=== PATIENT | female | born 1980 | race Caucasian/White ===

== ENCOUNTER 2016-07-21 19:11 | Inpatient (IN) | payer OTHER ==
[~2016-07-21] VITALS: Ht 170.2 cm; Wt 123.1 kg
[~2016-07-21 19:11] MED LIST: MONT1TAB5 PO; PNC/500 PO
[2016-07-21] MEDS ORDERED: SODIUM CHLORIDE 0.9% 1000ML 1,000 ML IV STA (19:33)
--- NOTE | 2016-07-21 19:37 | EMERGENCY ROOM VISIT NOTE ---
History Report prepared by Gissel: Jaclyn Waldron Under the Supervision of: Dr. Naif Wilson D.O. First contact with patient: 19:31 Chief Complaint: OVERDOSE (INTENTIONAL) Stated Complaint: DRUG OVERDOSE History of Present Illness The patient is a 35 year old female who presents to the Emergency Room with complaints of Xanax overdose starting 7 hours AUTOCAD. The patient states that she got home from court for a domestic abuse situation and states she was depressed and started taking her Xanax until her bottle was a gone and then states she started to take her friends bottle of Xanax and states it was about 40 pills. The patient states that she stopped taking the Xanax about 1.5 hours AUTOCAD. The patient denies taking any other drugs or drinking alcohol. The patient states she has had overdoses in the past and is a recovering heroin addict. The patient states that she has just given up and that no one caries about her and she wanted to be done with life. Source of History: patient Onset: 7 hours AUTOCAD Position: other (global) Symptom Intensity: 40 Xanax Note: Associated symptoms: depression Review of Systems See HPI for pertinent positives & negatives. A total of 10 systems reviewed and were otherwise negative. Past Medical & Surgical Medical Problems: (1) Appendectomy (2) section (3) Cholecystectomy (4) Drug overdose (5) Gastroparesis (6) Hepatitis C (7) History of - hysterectomy (8) IRRITABLE BOWEL SYNDROME (9) IV drug abuse (10) Laparoscopy (11) Migraine (12) Pancreatitis (13) Pyelonephritis (14) Spinal stenosis (15) XANAX OVERDOSE Family History Cancer Cardiovascular disease Social History Smoking Status: Current Every Day Smoker Alcohol Use: none Drug Use: heroin Marital Status: single Housing Status: lives alone Occupation Status: disabled Current/Historical Medications Scheduled Alprazolam (Xanax), 1 MG PO TID Estradiol (Estradiol), 0.5 MG PO DAILY Gabapentin (Neurontin), 300 MG PO HS Ipratropium-Albuterol (Combivent Respimat), 1 PUFF INH QID Montelukast Sodium (Montelukast Sodium), 10 MG PO DAILY Pancrelipase (Lipase-Protease- (Pancreaze), 3 CAP PO TIDM Pantoprazole (Protonix), 40 MG PO DAILY Scheduled PRN Ibuprofen Tab (Advil), 400 MG PO Q8 PRN for Pain Allergies Coded Allergies: No Known Allergies (Unverified , 07/21/16) Physical Exam Vital Signs Date Time Temp Pulse Resp B/P Pulse Ox O2 Delivery O2 Flow Rate FiO2 07/21/16 22:34 76 07/21/16 22:33 77 23 109/86 94 Room Air 07/21/16 21:00 80 12 114/70 95 Room Air 07/21/16 20:25 83 22 111/71 94 Room Air 07/21/16 20:05 95 Room Air 07/21/16 20:05 Room Air 07/21/16 19:22 37.0 90 18 116/76 97 Room Air Physical Exam GENERAL: Patient is listless, slow to respond to questions and appears intoxicated. EYES: The conjunctivae are clear. The pupils dilated but reactive to light bilaterally. EARS, NOSE, MOUTH AND THROAT: The nose is without any evidence of any deformity. Mucous membranes are moist tongue is midline NECK: The neck is nontender and supple. RESPIRATORY: Normal respiratory effort is noted there is no evidence of wheezing rhonchi or rales CARDIOVASCULAR: Regular rate and rhythm noted there no murmurs rubs or gallops normal S1 normal S2 GASTROINTESTINAL: The abdomen is soft. Bowel sounds are present in all quadrants. Abdomen is nontender MUSCULOSKELETAL/EXTREMITIES: There is no evidence of gross deformity full range of motion is noted in the hips and shoulders SKIN: There is no obvious evidence of any rash. There are no petechiae, pallor or cyanosis noted. NEUROLOGIC: Patient is oriented to person, place and situation. Patellar tendon reflux is 2+ bilaterally. GCS 14 PSYCH: Patient is currently admitting to suicidal ideation with gesture. Admits that she took benzodiazepines and a friends benzodiazepines and other prescription medication in attempt to injury herself. Medical Decision & Procedures ER Provider Diagnostic Interpretation: X-ray results as stated below per interpretation by me and the radiologist. CHEST ONE VIEW PORTABLE CLINICAL HISTORY: Overdose COMPARISON STUDY: 12/13/2015 FINDINGS: The bones soft tissues and hemidiaphragms are normal. The cardiomediastinal silhouette is normal. The lungs are clear. The pulmonary vasculature is normal. Old fracture right clavicle IMPRESSION: Negative chest. Electronically signed by: Hitesh Alexandre M.D. 07/21/2016 7:52 PM Dictated Date/Time: 07/21/2016 7:52 PM Laboratory Results 07/21/16 20:00 Red Blood Count 4.69, Mean Corpuscular Volume 83.8, Mean Corpuscular Hemoglobin 29.4, Mean Corpuscular Hemoglobin Concent 35.1, Mean Platelet Volume 10.2, Neutrophils (%) (Auto) 52.0, Lymphocytes (%) (Auto) 38.7, Monocytes (%) (Auto) 6.6, Eosinophils (%) (Auto) 2.2, Basophils (%) (Auto) 0.4, Neutrophils # (Auto) 3.94, Lymphocytes # (Auto) 2.93, Monocytes # (Auto) 0.50, Eosinophils # (Auto) 0.17, Basophils # (Auto) 0.03 07/21/16 20:00 Test 07/21/16 20:00 07/21/16 20:04 07/21/16 21:00 White Blood Count 7.58 K/uL (4.8-10.8) Red Blood Count 4.69 M/uL (4.2-5.4) Hemoglobin 13.8 g/dL (12.0-16.0) Hematocrit 39.3 % (37-47) Mean Corpuscular Volume 83.8 fL (80-100) Mean Corpuscular Hemoglobin 29.4 pg (25-34) Mean Corpuscular Hemoglobin Concent 35.1 g/dl (32-36) Platelet Count 279 K/uL (130-400) Mean Platelet Volume 10.2 fL (7.4-10.4) Neutrophils (%) (Auto) 52.0 % Lymphocytes (%) (Auto) 38.7 % Monocytes (%) (Auto) 6.6 % Eosinophils (%) (Auto) 2.2 % Basophils (%) (Auto) 0.4 % Neutrophils # (Auto) 3.94 K/uL (1.4-6.5) Lymphocytes # (Auto) 2.93 K/uL (1.2-3.4) Monocytes # (Auto) 0.50 K/uL (0.11-0.59) Eosinophils # (Auto) 0.17 K/uL (0-0.5) Basophils # (Auto) 0.03 K/uL (0-0.2) RDW Standard Deviation 43.3 fL (36.4-46.3) RDW Coefficient of Variation 14.0 % (11.5-14.5) Immature Granulocyte % (Auto) 0.1 % Immature Granulocyte # (Auto) 0.01 K/uL (0.00-0.02) Venous Blood pH 7.44 (7.36-7.41) Venous Blood Partial Pressure CO2 40 mmHg (38.0-50.0) Venous Blood Partial Pressure O2 66 mmHg Venous Blood HCO3 27 mmol/L Venous Blood Oxygen Saturation 93.2 % Venous Blood Base Excess 2.4 mmol/L Anion Gap 12.0 mmol/L (3-11) Est Creatinine Clear Calc Drug Dose 72.6 ml/min Estimated GFR () 95.3 Estimated GFR (Non- 82.3 BUN/Creatinine Ratio 11.2 (10-20) Calcium Level 8.8 mg/dl (8.5-10.1) Total Bilirubin 0.3 mg/dl (0.2-1) Direct Bilirubin < 0.1 mg/dl (0-0.2) Aspartate Amino Transf (AST/SGOT) 17 U/L (15-37) Alanine Aminotransferase (ALT/SGPT) 21 U/L (12-78) Alkaline Phosphatase 100 U/L (45-117) Total Creatine Kinase 173 U/L (26-192) Creatine Kinase MB 1.2 ng/ml (0.5-3.6) Creatine Kinase MB Ratio 0.7 (0-3.0) Total Protein 7.1 gm/dl (6.4-8.2) Albumin 3.6 gm/dl (3.4-5.0) Lipase 227 U/L (73-393) Salicylates Level 2.3 mg/dl (2.8-20) Acetaminophen Level < 2 ug/ml (10-30) Ethyl Alcohol mg/dL < 3.0 mg/dl (0-3) Bedside Glucose 99 mg/dl (70-90) Urine Color YELLOW Urine Appearance CLOUDY (CLEAR) Urine pH 5.5 (4.5-7.5) Urine Specific [place] 1.006 (1.000-1.030) Urine Protein NEG (NEG) Urine Glucose (UA) NEG (NEG) Urine Ketones NEG (NEG) Urine Occult Blood NEG (NEG) Urine Nitrite NEG (NEG) Urine Bilirubin NEG (NEG) Urine Urobilinogen NEG (NEG) Urine Leukocyte Esterase NEG (NEG) Urine WBC (Auto) 1-5 /hpf (0-5) Urine RBC (Auto) 0-4 /hpf (0-4) Urine Hyaline Casts (Auto) 1-5 /lpf (0-5) Urine Epithelial Cells (Auto) >30 /lpf (0-5) Urine Bacteria (Auto) NEG (NEG) Urine Opiates Screen NEG (NEG) Urine Methadone, Qualitative NEG (NEG) Urine Barbiturates NEG (NEG) Urine Phencyclidine (PCP) Level NEG (NEG) Ur Amphetamine/Methamphetamine NEG (NEG) MDMA (Ecstasy) Screen NEG (NEG) Urine Benzodiazepines Screen POS (NEG) Urine Cocaine Metabolite NEG (NEG) Urine Marijuana (THC) NEG (NEG) Laboratory results per my review. Medications Administered Medications (Trade) Dose Ordered Sig/Alem Route Start Time Stop Time Status Last Admin Dose Admin Sodium Chloride (Nss 1000ml) 1,000 ml @ 999 mls/hr Q1H1M STAT IV 07/21/16 19:33 07/21/16 20:33 DC 07/21/16 20:26 999 MLS/HR ECG Indication: toxicologic Rate (beats per minute): 80 Rhythm: normal sinus Findings: no ectopy, other (No acute ST segment abnormalities) ED Course 1931: The patient was evaluated in room C5. A complete history and physical examination were performed. 1932: Ordered NSS 1,000 ml @ 999 mls/hr IV. 2150:I discussed the case with Dr. Perla Martines Hospitalist. He agreed to come evaluate the patient for further management and care. Medical Decision Prior records/ancillary studies reviewed. Triage Nursing notes reviewed. The patient's history was concerning for altered mental status and probable overdose. Differential diagnosis: Etiologies such as toxicologic, infection, hypoglycemia, electrolyte abnormalities, cardiac sources, intracerebral event, neurologic, as well as others were entertained. The patient is a 35-year-old female who presented to the emergency department after an intentional overdose. The patient states that she was very depressed and suicidal after an episode that occurred at court today. The patient became very depressed and she started taking her prescription benzodiazepine throughout the day. She started around noon and Taking the prescription until she ran out. She then started taking a friend's prescription as well. The patient presented to the emergency department with altered mental status. She appeared intoxicated. The patient was not able to be medically cleared because of ongoing symptoms. She did not require intubation. She was not hypoxic. She did not retain CO2. She was reevaluated multiple times but continued to require significant help with any ambulation. I do not feel that she would be stable and a mental health facility at this time although ultimately she may require admission to a mental health facility because of this episode and suicidal gesture. I discussed this case with the patient's primary care physician. He has agreed to evaluate the patient for further management and disposition. Consults Time Called: 2149 Consulting Physician: Dr. Perla Martines Hospitalist Returned Call: [phone] I discussed the case with Dr. Perla Martines Hospitalist. He agreed to come evaluate the patient for further management and care. Impression Primary Impression: Overdose of benzodiazepine Additional Impressions: Altered mental status suicidal ideation with gesture Scribe Attestation The scribe's documentation has been prepared under my direction and personally reviewed by me in its entirety. I confirm that the note above accurately reflects all work, treatment, procedures, and medical decision making performed by me. Departure Information Dispostion Being Evaluated By Hospitalist Referrals No Doctor, Assigned (PCP) Patient Instructions My [facility] Problem Qualifiers Primary Impression: Overdose of benzodiazepine Encounter type: initial encounter Injury intent: intentional self-harm Qualified Codes: T42.4X2A - Poisoning by benzodiazepines, intentional self-harm , initial encounter Additional Impressions: Altered mental status Altered mental status type: unspecified Qualified Codes: R41.82 - Altered mental status, unspecified
--- NOTE | 2016-07-21 19:54 | DIAGNOSTIC IMAGING REPORT ---
CHEST ONE VIEW PORTABLE CLINICAL HISTORY: Overdose COMPARISON STUDY: 12/13/2015 FINDINGS: The bones soft tissues and hemidiaphragms are normal. The cardiomediastinal silhouette is normal. The lungs are clear. The pulmonary vasculature is normal. Old fracture right clavicle IMPRESSION: Negative chest. Electronically signed by: Hitesh Alexandre M.D. 07/21/2016 7:52 PM Dictated Date/Time: 07/21/2016 7:52 PM
[2016-07-21 20:09] LABS: VEN BLD GAS O2 SATURATION 93.2 %; VEN BLOOD GAS BASE EXCESS 2.4 mmol/L
[2016-07-21 20:15] LABS: BASO % 0.4 %; BASO ABS # 0.03 K/uL (0-0.2); COMPLETE YES; EOS % 2.2 %; HEMATOCRIT 39.3 % (37-47); IG% 0.1 %; LYMPH % 38.7 %; LYMPH ABS # 2.93 K/uL (1.2-3.4); MEAN CELL VOLUME 83.8 fL (80-100); MEAN CORPUSCULAR HEMOGLOBIN 29.4 pg (25-34); MEAN CORPUSCULAR HGB CONC 35.1 g/dl (32-36); MEAN PLATELET VOLUME 10.2 fL (7.4-10.4); MONO % 6.6 %; PLATELET COUNT 279 K/uL (130-400); RED BLOOD COUNT 4.69 M/uL (4.2-5.4); WHITE BLOOD COUNT 7.58 K/uL (4.8-10.8)
[2016-07-21 20:35] LABS: ACETAMINOPHEN < 2 ug/ml (10-30); BLOOD UREA NITROGEN 10 mg/dl (7-18); GLUCOSE 101 mg/dl (70-99)
[2016-07-21 20:36] LABS: ALT/SGPT 21 U/L (12-78); BUN/CREATININE RATIO 11.2 (10-20); CALCIUM 8.8 mg/dl (8.5-10.1); CARBON DIOXIDE 23 mmol/L (21-32); CHLORIDE 104 mmol/L (98-107); POTASSIUM 3.6 mmol/L (3.5-5.1); SODIUM 139 mmol/L (136-145)
[2016-07-21 20:40] LABS: ALKALINE PHOSPHATASE 100 U/L (45-117); AST/SGOT 17 U/L (15-37); CKMB/CK RATIO 0.7 (0-3.0)
[2016-07-21 21:12] LABS: URINE APPEARANCE CLOUDY (CLEAR); URINE BILIRUBIN NEG (NEG); URINE COLOR YELLOW; URINE EPITHELIAL CELL AUTO >30 /lpf (0-5); URINE NITRITE NEG (NEG); URINE PH 5.5 (4.5-7.5); URINE SPECIFIC GRAVITY 1.006 (1.000-1.030); UROBILINOGEN NEG (NEG)
[2016-07-21 21:14] LABS: MANUAL MICROSCOPIC REQUIRED? NO; REVIEW REQ? NO
[2016-07-21 21:41] LABS: BENZODIAZEPINE, URINE POS (NEG); COCAINE,URINE NEG (NEG); PHENCYCLIDINE, URINE NEG (NEG)
[2016-07-21] MEDS ORDERED: ACETAMINOPHEN 325 MG TAB PO PRN (22:45)
[2016-07-21] MEDS ORDERED: ONDANSETRON INJ 8 MG in DEXTROSE 5% 50ML 50 ML IV PRN (22:45)
[2016-07-21] MEDS ORDERED: SODIUM CHLORIDE 0.9% 1000ML 1,000 ML IV SCH (23:30)
[2016-07-21 23:47] VITALS: BP 117/64; PULSE 75; TEMP 36.7; O2SAT 94; Ht 170.2 cm; Wt 123.1 kg
--- NOTE | 2016-07-22 01:20 | HISTORY & PHYSICAL EXAMINATION ---
DATE OF ADMISSION: 07/21/2016 CHIEF COMPLAINT: A 35-year-old female, admitted through the Emergency Room with Xanax overdose. HISTORY OF PRESENT ILLNESS: The patient with multiple medical problems including longstanding history of heroin addiction, has been treated in the past with methadone and Suboxone. She has chronic pancreatitis. She has had previous stenting of her pancreatic duct. She also has a history of hepatitis C. She does have bipolar disorder. She has had multiple hospitalizations with multidrug overdose. The patient presented to the Emergency Room today stating that she took Xanax. Apparently, she was in court today dealing with a legal issue. The outcome was upsetting to her, so she went home and she started taking Xanax around noon time. She had a bottle and she took it until the bottle became empty. Then she took some of her friend's Xanax. She has estimated that she took about 40 tablets. Her prescription is for the 1 mg tablets. She was evaluated in the Emergency Room. She had altered mental status. Most of the time she was obtunded, but she was arousable. She had no nausea, no vomiting. She denied any headache. She was off balance when she tries to stand up and walk. She needed assistance. No chest pain, no shortness of breath. No nausea, no vomiting. No pain in her back or extremities. The patient was admitted. Psychiatry consultation was requested. PAST MEDICAL HISTORY: 1. As noted, she has had multiple prior hospitalizations with drug overdose. 2. Appendectomy in 2003. 3. Cholecystectomy in 2003. 4. She had 2 C-sections in 1999 and 2001. 5. She has had a partial hysterectomy followed by complete hysterectomy in the past. She has been on hormonal replacement therapy. 6. Meniscus surgery right knee, in 2003. 7. She had a tonsillectomy and adenoidectomy at age 10. 8. Carpal tunnel decompression surgery in 2011 on the left side and 2004 on the right side. 9. History of wisdom teeth extractions in the remote past. 10. She has had prior surgeries on her elbow after an injury. 11. Chronic pancreatitis. At one time in the past, she was evaluated at [facility] and she required stenting of her pancreatic duct which was then removed in 2009. 12. History of longstanding drug addiction, mostly heroin. 13. She was diagnosed in the past with hepatitis C. She has not required any treatment. SOCIAL HISTORY: She is . She had 2 children. She is a smoker, up to 3 packs per day, she started at age 11. Denied any alcohol. Denied using any drugs recently. She has had multiple jobs in the past. FAMILY HISTORY: Her father is treated for type 2 diabetes mellitus, arterial hypertension and hyperlipidemia. Her mother is in her 50s, alive and well. One brother has COPD. Children are alive and well; they are being raised by her mother. ALLERGIES: No known drug allergies. MEDICATIONS ON ADMISSION: All as noted on her home medication list. REVIEW OF SYSTEMS: She denied any headache, dizziness or lightheadedness. She is quite obtunded. Arousable. Denied any earache, sore throat or neck pain. Denied any chest pain. No shortness of breath. No abdominal pain, no nausea or vomiting. No problem with her bowel movements. No urinary problem. No pain in her back or extremities. PHYSICAL EXAMINATION: GENERAL: Well-developed, in no acute distress. Her recorded weight is 123 kg, height 180.3 cm and BMI 38. VITAL SIGNS: Blood pressure 116/76, pulse 90, respirations 18, temperature 37 and oxygen saturation 97% on room air. SKIN: Warm and dry. No rash. Multiple tattoos. HEENT: No mucosal abnormality. NECK: Supple. Nontender. No adenopathy, no thyromegaly. No JVD. Normal carotid pulses. HEART: Regular heart sounds without any murmur, rub or gallop. LUNGS: Clear. ABDOMEN: Soft and nontender. No evidence of organomegaly or masses. EXTREMITIES: No edema, clubbing or cyanosis. Good pulses. NEUROLOGIC: She is obtunded, but arousable. There is no evidence of any lateralized deficits. LABORATORY TESTS: WBC count 7580, hemoglobin 13.8, hematocrit 39.3, platelet count 279,000. Sodium 139, potassium 3.6, chloride 104, CO2 23, BUN 10, creatinine 0.9, glucose 101, calcium 8.8, total bilirubin 0.3, AST 17, ALT 21, alkaline phosphatase 100, total CK 173, MB fraction 1.2, total protein 7.1, albumin 3.6, lipase 227. Chest x-ray was normal. ASSESSMENT: 1. Xanax overdose, estimated that she probably took about 40 tablets; what she has available is the 1 mg tablets. 2. Bipolar disorder. 3. History of multiple drug overdoses. 4. History of pancreatitis with pancreatic insufficiency. 5. History of hepatitis C. PLAN: The patient is admitted to PCU with telemetry. Resuscitation level 1. Laboratory tests were ordered. Started on IV fluids. IV Zofran for any nausea. The plan is to monitor her closely. Monitor her mental status. Monitor her laboratory tests. Psychiatry consultation was requested. The patient will be monitored from a medical standpoint. Once she is cleared from a medical standpoint, then a decision will be made regarding her psychiatric evaluation and care. JOHANNA
[2016-07-22 03:33] VITALS: BP 114/72; PULSE 74; TEMP 36.4; O2SAT 93
[2016-07-22 06:30] LABS: BASO % 0.2 %; BASO ABS # 0.01 K/uL (0-0.2); COMPLETE YES; EOS % 3.4 %; HEMATOCRIT 38.2 % (37-47); IG% 0.2 %; LYMPH ABS # 2.09 K/uL (1.2-3.4); MEAN CELL VOLUME 86.4 fL (80-100); MEAN CORPUSCULAR HEMOGLOBIN 29.6 pg (25-34); MEAN CORPUSCULAR HGB CONC 34.3 g/dl (32-36); MEAN PLATELET VOLUME 10.1 fL (7.4-10.4); MONO % 7.4 %; NEUT % 52.8 %; PLATELET COUNT 246 K/uL (130-400); RED BLOOD COUNT 4.42 M/uL (4.2-5.4); WHITE BLOOD COUNT 5.81 K/uL (4.8-10.8)
[2016-07-22 07:00] LABS: BUN/CREATININE RATIO 8.9 (10-20); CALCIUM 8.4 mg/dl (8.5-10.1); CREATININE 0.88 mg/dl (0.60-1.20); POTASSIUM 3.5 mmol/L (3.5-5.1)
[2016-07-22] MEDS ORDERED: PANCREAZE (LIPASE 10,500U) CAP PO SCH (07:30)
[2016-07-22 07:47] VITALS: BP 104/70; PULSE 76; TEMP 36.4; O2SAT 97
[2016-07-22] MEDS ORDERED: MONTELUKAST SOD 10 MG TAB PO SCH (09:00)
[2016-07-22] MEDS ORDERED: PANTOprazole SOD 40 MG TAB PO SCH (09:00)
--- NOTE | 2016-07-22 09:19 | Clinical Documentation Query ---
Dr. NIMA DELGADO [facility] : CLINICAL DOCUMENTATION QUERY Patient is a 35 year old female admitted for evaluation and treatment of intentional Xanax overdose. She has been described as obtunded, but arousable. She is being monitored on telemetry, recieving IVF, monitored with serial labs, and will be evaluated by psychiatry when medically feasible. As appropriate, consider clarification as suggested below as this directly impacts DRG assignment. Thank you. In your clinical opinion is this patient being managed for: ( ) Toxic drug induced encephalopathy ( ) Other explanation of clinical findings (Please Explain) ( ) Unable to determine (Please Define) ( ) Need to Discuss (x ) Not Agree The medical record reflects the following clinical findings, treatment, and risk factors. Clinical Indicators: As above Treatment:She is being monitored on telemetry, recieving IVF, monitored with serial labs, and will be evaluated by psychiatry when medically feasible. Risk Factors: Xanax overdose Please clarify and document your clinical opinion in the progress notes and discharge summary. Terms such as "probable", "suspected", "likely", "questionable", "possible", or "still to be ruled out" are acceptable. IF IN AGREEMENT, YOU MUST DOCUMENT ABOVE DIAGNOSTIC STATEMENT IN DAILY PROGRESS NOTES AND DISCHARGE SUMMARY. This document is not part of the patient's record. Thank You, Abdifatah Winkler, BIANCA [phone]
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
[2016-07-22] MEDS ORDERED: GABAPENTIN 300 MG CAP PO SCH (21:00)
--- NOTE | 2016-07-22 21:35 | PROGRESS NOTE ---
DATE: 07/22/2016 HISTORY OF PRESENT ILLNESS: A 35-year-old female, admitted after Xanax overdose. Overnight she did well. She rested comfortably. I saw the patient this morning. She was awake, alert and recalls exactly what happened to her the day before. She insisted on saying that she was not trying to kill herself, but she just wanted to try to forget what happened in court. When I saw her this morning, she was calm, cooperative and she had no complaints of any headache or dizziness. No chest pain, no shortness of breath. No abdominal pain, no nausea or vomiting. Not having any pain in her back or extremities. PHYSICAL EXAMINATION: GENERAL: Well-developed, in no distress. VITAL SIGNS: Blood pressure 104/70, pulse 76, respirations 18, temperature 36.4 and oxygen saturation 97% on room air. SKIN: Warm and dry. No rash. Multiple tattoos. HEENT: No mucosal abnormality. NECK: No JVD. No adenopathy. HEART: Regular heart sounds. LUNGS: Clear. ABDOMEN: Soft and benign. BACK: No spinal tenderness. EXTREMITIES: No edema, clubbing or cyanosis. LABORATORY TESTS: WBC count 5810, hemoglobin 13.1, hematocrit 38.2 and platelet count 246,000. Sodium 141, potassium 3.5, chloride 109, CO2 23, BUN 8, creatinine 0.88, glucose 98, calcium 8.4. Her toxicology screen was positive for benzodiazepine as expected. Nothing else was detected. ASSESSMENT: 1. Xanax overdose. 2. Bipolar disorder. PLAN: 1. Psychiatry consultation was requested. 2. Her nurse called me shortly after I saw her. She is stating that the patient was becoming very aggressive. She pulled her IV. Blood was all over her and she tried to clean her up, but she refused. She was getting quite combative and belligerent. The nurse tried to calm her down without success. The patient insisted that she was going to leave the hospital. She signed herself AMA.
[2016-07-24 15:16] LABS: HYDROXYETHYLFLURAZEPAM CONF NEGATIVE NG/ML (CUTOFF=50); HYDROXYMIDAZOLAM NEGATIVE NG/ML (CUTOFF=50); HYDROXYTRIAZOLAM CONF NEGATIVE NG/ML (CUTOFF=50); TEMAZEPAM CONF NEGATIVE NG/ML (CUTOFF=50)
--- NOTE | 2016-08-02 02:10 | DISCHARGE SUMMARY ---
DISCHARGE DIAGNOSES: 1. Xanax overdose. 2. Bipolar disorder. A 35-year-old female admitted through the Emergency Room with Xanax overdose. The patient with multiple medical problems including longstanding history of heroin addiction; has been treated in the past with methadone and Suboxone. She had chronic pancreatitis. At one time in the past, she required a short period of stenting of her pancreatic duct. She also has a history of hepatitis C. She has bipolar disorder. She has had multiple prior hospitalizations. The patient presented to the Emergency Room on the day of admission stating that she took Xanax. Apparently she was in court dealing with a legal issue. The outcome was upsetting to her. She went home and she started taking Xanax around noontime. She had a bottle. She took it until the bottle was empty. Then she took some of her friends Xanax. She estimated that she probably took 40 tablets. Her prescription is for the 1 mg tablets. She was evaluated in the Emergency Room. She had altered mental status. Most of the time she was obtunded, but she was arousable. She had no nausea, no vomiting. She denied any headache. She was off balance when she tried to stand up and walk. She needed assistance. She had no chest pain. She was admitted for further treatment. Psychiatry consultation was also requested. PAST MEDICAL HISTORY, SOCIAL HISTORY AND FAMILY HISTORY: All as noted. ALLERGIES: None. MEDICATIONS ON ADMISSION: All as noted on her home medication list. PHYSICAL EXAMINATION AND ADMISSION LABORATORY TESTS: All as noted. HOSPITAL COURSE: The patient was admitted to PCU with telemetry. Resuscitation level 1. Laboratory tests were ordered. Psychiatry consultation was requested. After admission, the patient remained quiet and calm. Her mental status was recovering. Her condition remained stable. On 07/22/2016, she was seen in psychiatry consultation. I saw the patient in the morning. She was resting comfortably. She was back to her baseline mental status. We are completing her workup and evaluation with the intent of having her cleared for psychiatry care. Shortly after I saw her in the morning, her nurse called me to let me know that the patient was becoming aggressive. She pulled her IV. Blood was splashed all over. The nurse was trying to clean the blood, but the patient refused. She was getting belligerent and combative. The nurse tried to calm her down without success. The patient insisted that she was going to leave the hospital. She did sign herself AMA.
[2016-09-06] MEDS ORDERED: GABA-113 PO (07:30)
[2016-09-06] MEDS ORDERED: IPRA1AER2 INH (16:12)
[2016-09-06] MEDS ORDERED: IBUP-103 PO (16:35)
[2016-09-06] MEDS ORDERED: ESTR0.5T3 PO (16:59)
[2016-09-06] MEDS ORDERED: PANT1TAB48 PO (16:59)
[2016-09-06] MEDS ORDERED: PANCCAP2 PO (16:59)
[2016-09-06] MEDS ORDERED: ALPR1TAB3 PO (19:42)
== END 2016-07-22 11:00 | disposition left against medical advice (07) | DRG 918 ==
LOC: ENRESERVTM → ENRESERVDT → C.EDB 19:13 → UNDOADMIN 22:42 → C.2E 22:42
PROVIDERS: ADMIT Internal Medicine; ATTEND Internal Medicine
DX: T42.4X2A Poisoning by benzodiazepines, intentional self-harm, initial encounter (principal); F11.20 Opioid dependence, uncomplicated; K86.1 Other chronic pancreatitis; T82.838A Hemorrhage due to vascular prosthetic devices, implants and grafts, initial encounter; X78.8XXA Intentional self-harm by other sharp object, initial encounter; Y92.230 Patient room in hospital as the place of occurrence of the external cause; R41.82 Altered mental status, unspecified; Y92.009 Unspecified place in unspecified non-institutional (private) residence as the place of occurrence of the external cause; R45.6 Violent behavior; F31.9 Bipolar disorder, unspecified; F13.10 Sedative, hypnotic or anxiolytic abuse, uncomplicated; K86.89 Other specified diseases of pancreas; F17.210 Nicotine dependence, cigarettes, uncomplicated; Z53.21 Procedure and treatment not carried out due to patient leaving prior to being seen by health care provider; Z91.5 Personal history of self-harm; Z86.19 Personal history of other infectious and parasitic diseases; Z65.3 Problems related to other legal circumstances; Z79.890 Hormone replacement therapy

== ENCOUNTER 2016-08-13 19:23 | Observation (INO) | payer OTHER ==
[~2016-08-13] VITALS: Ht 170.2 cm; Wt 126.8 kg
[~2016-08-13 19:23] MED LIST changes: -PNC/500 PO
[2016-08-13] MEDS ORDERED: FAMOTIDINE 20MG/102 ML D5W IV STA (19:58)
[2016-08-13] MEDS ORDERED: SODIUM CHLORIDE 0.9% 1000ML 1,000 ML IV STA (19:58)
--- NOTE | 2016-08-13 20:15 | EMERGENCY ROOM VISIT NOTE ---
History Report prepared by Gissel: Mercedez Rahman Under the Supervision of: Dr. Ravi Miranda M.D. First contact with patient: 19:54 Chief Complaint: OVERDOSE (INTENTIONAL) Stated Complaint: SUICIDAL, SEVERE RT SIDE ABD PAIN, TOOK 60 PILLS History of Present Illness The patient is a 35 year old female who presents to the Emergency Room with complaints of constant severe upper abdominal pain beginning this morning. She notes that today she took 20 pills of 800mg Neurontin this morning and then 40 more pills later this afternoon. She denies trying to commit suicide or being suicidal. She notes that she has been having a hard time and has been dealing with depression for her whole life. The patient is 1 year clean from heroin. She notes that during her entire life her coping method has been taking pills or doing drugs . Today she has been experiencing diarrhea. The patient has an extensive abdominal history and also has Hepatitis C. She denies nausea. The patient notes that she switched psychiatric medications last week and her new medications have not been filled yet. Source of History: patient Onset: today Position: abdomen (upper) Symptom Intensity: severe Timing: constant Associated Symptoms: + diarrhea, No nausea Note: Patient denies suicidal thoughts. Review of Systems See HPI for pertinent positives & negatives. A total of 10 systems reviewed and were otherwise negative. Past Medical & Surgical Medical Problems: (1) Appendectomy (2) section (3) Cholecystectomy (4) Drug overdose (5) GABAPENTIN OVERDOSE (6) Gastroparesis (7) Hepatitis C (8) History of - hysterectomy (9) IRRITABLE BOWEL SYNDROME (10) IV drug abuse (11) Laparoscopy (12) Migraine (13) Pancreatitis (14) Pyelonephritis (15) Spinal stenosis (16) XANAX OVERDOSE Family History Cancer Cardiovascular disease Social History Smoking Status: Current Every Day Smoker Alcohol Use: none Drug Use: heroin Marital Status: single Housing Status: lives alone Occupation Status: disabled Current/Historical Medications Scheduled Alprazolam (Xanax), 1 MG PO TID Estradiol (Estradiol), 0.5 MG PO DAILY Gabapentin (Neurontin), 300 MG PO HS Gabapentin (Neurontin), 800 MG PO DIRECTED Ipratropium-Albuterol (Combivent Respimat), 1 PUFF INH QID Montelukast Sodium (Montelukast Sodium), 10 MG PO DAILY Pancrelipase (Lipase-Protease- (Pancreaze), 3 CAP PO TIDM Pantoprazole (Protonix), 40 MG PO DAILY Zolpidem Tartrate (Ambien), 10 MG PO HS Scheduled PRN Ibuprofen Tab (Advil), 400 MG PO Q8 PRN for Pain Allergies Coded Allergies: No Known Allergies (Unverified , 08/13/16) Physical Exam Vital Signs Date Time Temp Pulse Resp B/P Pulse Ox O2 Delivery O2 Flow Rate FiO2 08/13/16 23:30 114/74 08/13/16 23:10 79 20 95 08/13/16 23:00 122/69 08/13/16 22:43 84 08/13/16 22:40 84 18 93 08/13/16 22:30 114/73 08/13/16 22:10 88 21 97 08/13/16 22:05 80 16 105/81 97 Room Air 08/13/16 21:01 86 18 126/78 96 Room Air 08/13/16 19:55 90 08/13/16 19:52 97 Room Air 08/13/16 19:34 37.1 92 20 129/87 97 Room Air Physical Exam GENERAL: Patient is in no acute distress. HEENT: No acute trauma, normocephalic atraumatic, mucous membranes moist, no nasal congestion, no scleral icterus. NECK: No stridor, no adenopathy, no meningismus, trachea is midline. LUNGS: Clear to auscultation bilaterally, no wheeze, no rhonchi, breath sounds equal. HEART: Without murmurs gallops or rubs, regular rate and rhythm. ABDOMEN: Soft, tenderness in upper quadrants bilaterally, bowel sounds positive , no hernias, no peritonitis. EXTREMITIES: No cyanosis or edema, full range of motion of all the joints without pain or difficulty, no signs for acute trauma. NEUROLOGIC: Oriented x 3, no acute motor or sensory deficits, no focal weakness. SKIN: No rash, no jaundice, no diaphoresis. PSYCH: Cooperative, voluntary, denies being suicidal. Medical Decision & Procedures ER Provider Diagnostic Interpretation: X-ray results as stated below per interpretation by me and the radiologist: CHEST ONE VIEW PORTABLE CLINICAL HISTORY: Agitation. COMPARISON STUDY: Chest radiograph July 21, 2016. FINDINGS: A right clavicular internal fixation is noted. Lung volumes are diminished. There is mild interstitial thickening with hazy bilateral opacities. Cardiac size is normal. Mediastinal contours are normal. IMPRESSION: Interstitial thickening with hazy bibasilar opacities. The findings could simply represent normal vessels or atelectasis on this hypoventilatory study. However, an infectious process could appear similar. Electronically signed by: Andrea Scott M.D. 08/13/2016 9:09 PM Dictated Date/Time: 08/13/2016 9:08 PM Laboratory Results 08/13/16 21:00 08/13/16 21:00 Test 08/13/16 19:56 08/13/16 21:00 Urine Color YELLOW Urine Appearance CLEAR (CLEAR) Urine pH 7.5 (4.5-7.5) Urine Specific [place] 1.021 (1.000-1.030) Urine Protein NEG (NEG) Urine Glucose (UA) NEG (NEG) Urine Ketones NEG (NEG) Urine Occult Blood NEG (NEG) Urine Nitrite NEG (NEG) Urine Bilirubin NEG (NEG) Urine Urobilinogen NEG (NEG) Urine Leukocyte Esterase NEG (NEG) Urine Test NEG (NEG) Urine Opiates Screen NEG (NEG) Urine Methadone, Qualitative NEG (NEG) Urine Barbiturates NEG (NEG) Urine Phencyclidine (PCP) Level NEG (NEG) Ur Amphetamine/Methamphetamine NEG (NEG) MDMA (Ecstasy) Screen NEG (NEG) Urine Benzodiazepines Screen NEG (NEG) Urine Cocaine Metabolite NEG (NEG) Urine Marijuana (THC) NEG (NEG) Red Blood Count 4.51 M/uL (4.2-5.4) Mean Corpuscular Volume 86.7 fL (80-100) Mean Corpuscular Hemoglobin 30.4 pg (25-34) Mean Corpuscular Hemoglobin Concent 35.0 g/dl (32-36) RDW Standard Deviation 44.7 fL (36.4-46.3) RDW Coefficient of Variation 14.1 % (11.5-14.5) Mean Platelet Volume 10.3 fL (7.4-10.4) Anion Gap 7.0 mmol/L (3-11) Est Creatinine Clear Calc Drug Dose 125.2 ml/min Estimated GFR () 100.7 Estimated GFR (Non- 86.9 BUN/Creatinine Ratio 17.9 (10-20) Calcium Level 8.7 mg/dl (8.5-10.1) Total Bilirubin 0.2 mg/dl (0.2-1) Aspartate Amino Transf (AST/SGOT) 20 U/L (15-37) Alanine Aminotransferase (ALT/SGPT) 27 U/L (12-78) Alkaline Phosphatase 102 U/L (45-117) Total Protein 7.1 gm/dl (6.4-8.2) Albumin 3.6 gm/dl (3.4-5.0) Globulin 3.5 gm/dl (2.5-4.0) Albumin/Globulin Ratio 1.0 (0.9-2) Lipase 217 U/L (73-393) Thyroid Stimulating Hormone (TSH) 1.480 uIu/ml (0.300-4.500) Salicylates Level 3.7 mg/dl (2.8-20) Acetaminophen Level < 2 ug/ml (10-30) Ethyl Alcohol mg/dL < 3.0 mg/dl (0-3) Laboratory results reviewed by me. Medications Administered Medications (Trade) Dose Ordered Sig/Alem Route Start Time Stop Time Status Last Admin Dose Admin Sodium Chloride (Nss 1000ml) 1,000 ml @ 999 mls/hr Q1H1M STAT IV 08/13/16 19:58 08/13/16 20:58 DC 08/13/16 22:04 999 MLS/HR Famotidine (Pepcid 20mg/100 ml) 20 mg ONE STAT IV 08/13/16 19:58 08/13/16 20:02 DC 08/13/16 22:04 20 MG ECG Indication: abdominal pain Rate (beats per minute): 82 Rhythm: normal sinus Findings: no acute ischemic change, no ectopy ED Course 1954: The patient was evaluated in room A8. A complete history and physical exam was performed. 1957: Pepcid 20 mg/ 100 ml 20 mg IV, Sodium Chloride 1,000 ml @ 999 mls/hr IV. 2150: I spoke to Poison Control about the patient. They recommend observation for symptoms. 2247: I reevaluated the patient. She is feeling very tired which is a symptoms poison control noted to observe. 2256: Discussed the patient's case with Dr. Landon Devi. The patient will be evaluated for further management. 2300: Upon reexamination the patient is hemodynamically stable. I discussed results and treatment plan with the patient. She verbalizes agreement and understanding. The patient will be evaluated for further management. Medical Decision The patient is a 35 year old female who presents to the ED with complaints of upper abdominal pain. Differential diagnoses considered include suicidal ideation, pancreatitis, hepatitis, multi drug overdose, electrolyte imbalance, renal failure, UTI. There is no leukocytosis or concerning anemia. No significant electrolyte abnormality or kidney failure. No hepatitis or pancreatitis. The patient appears to be in a euthyroid state. testing was negative. Urinalysis does not show infection. Aspirin, Tylenol and alcohol levels were not significantly elevated. Urine tox was negative. EKG showed a normal sinus rhythm, no acute ischemia. Chest x-ray showed possible pneumonia versus lower lung atelectasis, there was no pneumothorax or free air. The patient received IV saline, she was given IV Pepcid. I did speak with the poison center. They recommended observation. During the patient's stay, she became somnolent and I did not think she was stable for discharge home. I spoke with the patient's family Dr. Dr. Anil Duncan. Admission/observation is warranted. I did speak with case management. I talked to the patient about her findings. Consults Time Called: 2148 Consulting Physician: Poison Control Returned Call: 2150 I spoke to Poison Control about the patient. They recommend observation for symptoms. Additional Consults: Time Called: Consulted Physician: Dr. Landon Devi Returned Call: [phone] Additional Comments: Discussed the patient's case. The patient will be evaluated for further management. Impression Primary Impression: Medication overdose Scribe Attestation The scribe's documentation has been prepared under my direction and personally reviewed by me in its entirety. I confirm that the note above accurately reflects all work, treatment, procedures, and medical decision making performed by me. Departure Information Dispostion Being Evaluated By Hospitalist Referrals No Doctor, Assigned (PCP)
[2016-08-13] MEDS ORDERED: GABA800T PO (20:31)
[2016-08-13 20:36] LABS: URINE APPEARANCE CLEAR (CLEAR); URINE BILIRUBIN NEG (NEG); URINE COLOR YELLOW; URINE NITRITE NEG (NEG); URINE PH 7.5 (4.5-7.5); URINE SPECIFIC GRAVITY 1.021 (1.000-1.030); UROBILINOGEN NEG (NEG); ZZUR CULT IF INDIC CLEAN CATCH NO
[2016-08-13 20:37] LABS: MANUAL MICROSCOPIC REQUIRED? NO; REVIEW REQ? NO
[2016-08-13 20:58] LABS: BENZODIAZEPINE, URINE NEG (NEG); COCAINE,URINE NEG (NEG); PHENCYCLIDINE, URINE NEG (NEG)
--- NOTE | 2016-08-13 21:11 | DIAGNOSTIC IMAGING REPORT ---
CHEST ONE VIEW PORTABLE CLINICAL HISTORY: Agitation. COMPARISON STUDY: Chest radiograph July 21, 2016. FINDINGS: A right clavicular internal fixation is noted. Lung volumes are diminished. There is mild interstitial thickening with hazy bilateral opacities. Cardiac size is normal. Mediastinal contours are normal. IMPRESSION: Interstitial thickening with hazy bibasilar opacities. The findings could simply represent normal vessels or atelectasis on this hypoventilatory study. However, an infectious process could appear similar. Electronically signed by: Andrea Scott M.D. 08/13/2016 9:09 PM Dictated Date/Time: 08/13/2016 9:08 PM
[2016-08-13 21:14] LABS: HEMATOCRIT 39.1 % (37-47); MEAN CELL VOLUME 86.7 fL (80-100); MEAN CORPUSCULAR HEMOGLOBIN 30.4 pg (25-34); MEAN PLATELET VOLUME 10.3 fL (7.4-10.4); PLATELET COUNT 238 K/uL (130-400); RED BLOOD COUNT 4.51 M/uL (4.2-5.4); WHITE BLOOD COUNT 7.62 K/uL (4.8-10.8)
[2016-08-13 21:33] LABS: BUN/CREATININE RATIO 17.9 (10-20); CALCIUM 8.7 mg/dl (8.5-10.1); CREATININE 0.86 mg/dl (0.60-1.20); POTASSIUM 3.9 mmol/L (3.5-5.1)
[2016-08-13 21:34] LABS: ACETAMINOPHEN < 2 ug/ml (10-30)
[2016-08-13 21:43] LABS: THYROID STIMULATING HORMONE 1.48 uIu/ml (0.300-4.500)
[2016-08-13] MEDS ORDERED: IV FLUIDS COMPLETED PRN (23:45)
[2016-08-13] MEDS ORDERED: ACETAMINOPHEN 325 MG TAB PO PRN (23:45)
[2016-08-14 00:39] VITALS: BP 119/74; PULSE 80; TEMP 36.6; O2SAT 97; Ht 170.2 cm; Wt 126.8 kg
[2016-08-14] MEDS: SODIUM CHLORIDE 0.9% 1000ML 1,000 ML IV SCH ×2 (02:10→10:34)
[2016-08-14] MEDS: ONDANSETRON INJ 8 MG in DEXTROSE 5% 50ML 50 ML IV PRN ×2 (05:12→11:30)
[2016-08-14 06:26] LABS: BASO % 0.2 %; BASO ABS # 0.01 K/uL (0-0.2); COMPLETE YES; EOS % 2.2 %; HEMATOCRIT 36.6 % (37-47); LYMPH % 42.6 %; LYMPH ABS # 2.66 K/uL (1.2-3.4); MEAN CELL VOLUME 87.8 fL (80-100); MEAN CORPUSCULAR HEMOGLOBIN 29.7 pg (25-34); MEAN CORPUSCULAR HGB CONC 33.9 g/dl (32-36); MEAN PLATELET VOLUME 10.4 fL (7.4-10.4); MONO % 7.5 %; NEUT % 47.5 %; PLATELET COUNT 213 K/uL (130-400); RED BLOOD COUNT 4.17 M/uL (4.2-5.4); WHITE BLOOD COUNT 6.24 K/uL (4.8-10.8)
[2016-08-14 07:07] VITALS: BP 94/64; PULSE 71; TEMP 36.6; O2SAT 95
[2016-08-14 07:25] LABS: BUN/CREATININE RATIO 12.5 (10-20); CALCIUM 8.1 mg/dl (8.5-10.1); CREATININE 0.75 mg/dl (0.60-1.20); MAGNESIUM 2.3 mg/dl (1.8-2.4); POTASSIUM 3.8 mmol/L (3.5-5.1)
[2016-08-14] MEDS ORDERED: MONTELUKAST SOD 10 MG TAB PO SCH (08:00)
[2016-08-14] MEDS ORDERED: PANTOprazole SOD 40 MG TAB PO SCH (08:00)
[2016-08-14] MEDS: PANCREAZE (LIPASE 10,500U) CAP PO SCH ×3 (08:12→17:44)
[2016-08-14] MEDS: IPRATROPIUM BROMIDE/ALBUTEROL respimat INH INH SCH ×3 (08:13→16:10)
[2016-08-14 08:30] VITALS: O2SAT 95
[2016-08-14 15:36] VITALS: BP 95/66; PULSE 78; TEMP 36.8; O2SAT 96
--- NOTE | 2016-08-14 17:34 | Discharge Instructions ---
Discharge Instructions Date of Service Aug 14, 2016. Admission Reason for Admission: Gabapentin Overdose Discharge Discharge Diagnosis / Problem: Gabapentin overdose Discharge Goals Goal(s): Decrease discomfort, Improve disease control Activity Recommendations Activity Limitations: resume your previous activity . Instructions / Follow-Up Instructions / Follow-Up psychiatry follow-up Dr Duncan as scheduled Current Hospital Diet Patient's current hospital diet: Regular Diet Discharge Diet Recommended Diet: Regular Diet Pending Studies Studies pending at discharge: no Medical Emergencies . Who to Call and When: Medical Emergencies: If at any time you feel your situation is an emergency, please call 911 immediately. . Non-Emergent Contact Non-Emergency issues call your: Primary Care Provider . . "Provider Documentation" section prepared by Anil Duncan. VTE Core Measure Inpt VTE Proph given/why not?: Treatment not indicated
[2016-08-14 17:38] VITALS: BP 95/66; PULSE 78; TEMP 36.8; O2SAT 96
--- NOTE | 2016-08-14 17:51 | HISTORY & PHYSICAL EXAMINATION ---
DATE OF ADMISSION: 08/13/2016 HISTORY OF PRESENT ILLNESS: A 35-year-old female admitted through the Emergency Room with gabapentin overdose. The patient was last hospitalized at on 07/21/2016 with alprazolam overdose. She was admitted to PCU. The following morning, she signed herself AMA. The patient has been at home. She stated that she is dealing with multiple stressful situations that she was having difficulty dealing with. She has gabapentin at home, the 800-mg dose. She stated that she took about 20 in the morning of 08/13/2016 and in the afternoon, she took 40 tablets. She was trying to relax and she was trying to sleep, but the medication that she took was not helping, so that is why she kept taking it. She started experiencing abdominal pain, so she came to the Emergency Room. The patient denied any intention of suicide. She just wanted to relax and sleep. The patient was evaluated by Dr. Miranda. He did call the poison control center. The recommendation was mostly to observe her mental status, especially she becomes very somnolent. She was also seen by the case assistant from psychiatry and there was really no indication for an inpatient psychiatric care. The patient had no suicidal ideation and that was not her intent. Dr. Miranda was not able to discharge the patient home because she was very sleepy and somnolent. So, we had to admit her under observation status. PAST MEDICAL HISTORY: 1. She has had multiple hospitalizations with drug overdoses. 2. Longstanding history of depression. She is currently not taking any medications recently. Her medications were to be changed. Her psychiatry was going to start her on Latuda, but they are trying to get approval from her insurance company, so she has not started the medication yet. 3. Appendectomy in 2003. 4. Cholecystectomy in 2003. 5. She has had 2 C-sections in 1999 and 2001. 6. Partial hysterectomy followed by complete hysterectomy in the past. She has been on hormonal replacement therapy. 7. Right meniscus surgery in 2003. 8. Tonsillectomy and adenoidectomy at age 10. 9. Carpal tunnel decompression surgery in 2011 on the left side and 2004 on the right side. 10. History of extraction of her wisdom teeth. 11. History of pancreatitis. She was evaluated at [facility] and at one time, she required stenting of her pancreatic duct. It was subsequently removed. This was back in 2009. 12. History of longstanding heroin addiction. She has pain on methadone and Suboxone in the past. She stated that she have heroin free for about 1 years now. 13. Hepatitis C diagnosed in the past, not requiring any treatment. SOCIAL HISTORY: She is . Has 2 children. She is a smoker up to 3 packs per day. She started smoking back at age 11. Denied any alcohol. Denied using any drugs at this time, specifically heroin. She has had multiple jobs in the past. FAMILY HISTORY: Her father is treated for type 2 diabetes mellitus, arterial hypertension and hyperlipidemia. Her mother is in her 50s, doing well. One brother has COPD. Children are doing well and they are being raised by her mother. ALLERGIES: None. MEDICATIONS ON ADMISSION: All as noted on her home medication list. REVIEW OF SYSTEMS: The patient is resting comfortably. She is arousable. She denied any headache or dizziness. No chest pain and no shortness of breath. Her abdominal pain has subsided. No nausea and no vomiting. No diarrhea. No pain in her back or extremities. PHYSICAL EXAMINATION: GENERAL: Well developed in no distress. Her recorded weight is 126.8 kg, height 170.2 cm, and BMI 43.8. VITAL SIGNS: On arrival to the Emergency Room, her blood pressure was 129/87, pulse 92, respirations 20, temperature 37.1, and oxygen saturation 97% on room air. SKIN: Warm and dry. Multiple tattoos. HEENT: No problem with her eyes. No mucosal abnormalities in her nose, mouth or throat. NECK: Supple. No adenopathy and no thyromegaly. No JVD. Normal carotid pulses. No carotid bruit. HEART: Regular heart sounds without any murmur, rub or gallop. LUNGS: Clear. No wheezing. ABDOMEN: Soft and nontender without organomegaly or masses. BACK: No spinal tenderness. EXTREMITIES: No edema, clubbing, or cyanosis. No joint or muscle tenderness. Good pulses. NEUROLOGIC: She is sleepy, but arousable. There is no evidence of any lateralized deficit. She is appropriate in her answers. LABORATORY TESTS: WBC count 7620, hemoglobin 13.7, hematocrit 39.1, and platelet count 238,000. Sodium 141, potassium 3.9, chloride 107, CO2 of 27, BUN 15, creatinine 0.86, glucose 114, and calcium 8.7. Total bilirubin 0.2. AST 20, ALT 27, and alkaline phosphatase 102. Total protein 7.1, albumin 3.6, globulin 3.5, and lipase 217. TSH 1.80. Urinalysis was completely unremarkable. Her toxicology screen was all negative. Her chest x-ray showed no evidence of any infiltrate or any congestive heart failure. There were some interstitial thickening with bibasilar opacity, thought to be possibly representing normal vessels or atelectasis. It was hypoventilation study. Electrocardiogram did not show any significant abnormality. She is in a sinus rhythm. Her tracing was normal. ASSESSMENT: 1. Gabapentin overdose. 2. Longstanding history of depression. 3. Smoker. 4. History of pancreatitis. 5. History of hepatitis C. PLAN: The patient was admitted under observation status. Continue on IV fluid. IV Zofran for any nausea. She was continued on most of her oral medications. As noted, the patient was seen by the psychiatry case management and there is no indication for any inpatient therapy. The only issue is the fact that she was somnolent and could not be discharged home, so we will monitor her condition and she is intending to go back home after her acute hospitalization.
--- NOTE | 2016-08-14 21:54 | PROGRESS NOTE ---
DATE: 08/14/2016 A 35-year-old female, admitted after gabapentin overdose. She has a longstanding history of depression. She has had multiple hospitalizations for drug overdose in the past. Overall, she is doing well. Her mental status is normal. She is quite awake, alert and communicative. She has been out of bed. She is tolerating her diet. She has no complaints. The patient had no suicidal thoughts at the time she took the medication. She stated that she has been under a lot of stress and was trying to get some rest and tried to have some sleep. PHYSICAL EXAMINATION: GENERAL: Well developed, in no distress. VITAL SIGNS: Blood pressure 94/64, pulse 71, respiration 16, temperature 36.6, oxygen saturation 95% on room air. SKIN: Warm and dry. No rash. HEENT: No mucosal abnormalities. NECK: No adenopathy. No JVD. HEART: Regular heart sounds. LUNGS: Clear. ABDOMEN: Soft, nontender. EXTREMITIES: No edema, clubbing, or cyanosis. TODAY'S LABORATORY TESTS: WBC count 6240, hemoglobin 12.4, hematocrit 36.6, platelet count 213,000. Sodium 143, potassium 3.8, chloride 111, CO2 26, BUN 9, creatinine 0.79, glucose 96, calcium 8.1, magnesium 2.3, total bilirubin 0.3, AST 18, ALT 24, alkaline phosphatase 89, total protein 6.1, albumin 3.1. ASSESSMENT: 1. Gabapentin overdose. 2. Longstanding history of depression. PLAN: 1. Overall, her condition is stable. She is quite pleasant. There are no suicidal thoughts. 2. Her mental status is back to normal. 3. She is tolerating her diet. She is ambulating. 4. Discharged home. Follow up as scheduled.
--- NOTE | 2016-08-22 21:41 | DISCHARGE SUMMARY ---
DISCHARGE DIAGNOSES: 1. Gabapentin overdose. 2. Bipolar disorder. 3. Known hepatitis C. 4. History of pancreatitis. DISCHARGE MEDICATIONS: Included: 1. Alprazolam 1 mg three times a day. 2. Estradiol 0.5 mg daily. 3. Gabapentin 300 mg at bedtime and 800 mg as directed. 4. Ibuprofen 400 mg every 8 hours as needed. 5. Combivent Respimat 1 inhalation four times a day. 6. Pancrease 3 capsules three times a day with meals. 7. Protonix 40 mg daily. 8. Ambien 10 mg at bedtime. A 35-year-old female, admitted through the Emergency Room with gabapentin overdose. The patient has a longstanding history of bipolar disorder. She has had multiple hospitalizations in the past with different medication overdose. Most recently, she was admitted with alprazolam overdose. She was admitted overnight and she signed herself AMA the following morning. The patient has been at home. She is dealing with multiple stressful situations. She has gabapentin at home. She stated that she started taking the medications in the morning. She took about 20 tablets in the morning of 08/13/2016 and in the afternoon she took another 40 tablets. She was trying to relax. She was not trying to injure herself. She specifically repeated multiple times that she had no intention of hurting herself, but she was just trying to take medication so she could rest and sleep. She started experiencing abdominal pain and she came to the Emergency Room. The patient was evaluated by Dr. Miranda. Multiple laboratory tests were done. She had evaluation by psychiatry case management. The patient did not express any suicidal ideations. There was no risk that she was trying to hurt herself or hurt anybody else. It was not thought that she needed to be hospitalized in the psychiatric unit. Dr. Miranda monitored the patient in the Emergency Room, but she remained quite somnolent and sleepy. He did not feel that it was safe for her to go home, so I saw the patient and admitted her under observation status. PAST MEDICAL HISTORY, SOCIAL HISTORY AND FAMILY HISTORY: All as noted. ALLERGIES: None. MEDICATIONS ON ADMISSION: All as noted. PHYSICAL EXAMINATION AND ADMISSION LABORATORY TESTS: All as noted. HOSPITAL COURSE: The patient was admitted under observation status. She was continued on IV fluids. Given IV Zofran for any nausea. She was continued on her oral medications. The patient was monitored overnight. She became awake, alert and she was quite pleasant, conversant. There were no thoughts in her mind that she was trying to hurt herself in any way. The intent was for her to take the medications so she could rest. All her laboratory tests were monitored. Her condition improved. Her mental status was back to normal. She was tolerating her diet. She was ambulating. I saw her in the evening of 08/14/2016 and she was discharged home. Her friend came to pick her up. She was asked to follow up with her psychiatrist. He is trying to change her antidepressant to Latuda and she was waiting for her insurance approval. JOHANNA
[2016-09-06] MEDS ORDERED: GABA-113 PO (07:30)
[2016-09-06] MEDS ORDERED: IPRA1AER2 INH (16:12)
[2016-09-06] MEDS ORDERED: IBUP-103 PO (16:35)
[2016-09-06] MEDS ORDERED: ESTR0.5T3 PO (16:59)
[2016-09-06] MEDS ORDERED: PANT1TAB48 PO (16:59)
[2016-09-06] MEDS ORDERED: PANCCAP2 PO (16:59)
[2016-09-06] MEDS ORDERED: ALPR1TAB3 PO (19:42)
== END 2016-08-14 17:54 | disposition home or self-care (01) ==
LOC: ENRESERVTM → ENRESERVDT → C.EDB 19:25 → C.4E 23:41 → EDBEDREQ 23:43
PROVIDERS: ADMIT Internal Medicine; ATTEND Internal Medicine
DX: T42.6X1A Poisoning by other antiepileptic and sedative-hypnotic drugs, accidental (unintentional), initial encounter (principal); F32.9 Major depressive disorder, single episode, unspecified; F17.200 Nicotine dependence, unspecified, uncomplicated; Z90.49 Acquired absence of other specified parts of digestive tract; Z90.710 Acquired absence of both cervix and uterus; Z83.3 Family history of diabetes mellitus; Z82.49 Family history of ischemic heart disease and other diseases of the circulatory system

== ENCOUNTER 2016-09-06 20:40 | Inpatient (IN) | payer OTHER ==
[~2016-09-06] VITALS: Ht 172.7 cm; Wt 125.5 kg
[~2016-09-06 20:40] MED LIST changes: +ALPR1TAB3 PO; +ESTR0.5T3 PO; +GABA-113 PO; +GABA800T PO; +IBUP-103 PO; +IPRA1AER2 INH; +PANCCAP2 PO; +PANT1TAB48 PO
[2016-09-06] MEDS ORDERED: ONDANSETRON INJ 2 MG/ML 2 ML VIAL IV STA (21:06)
[2016-09-06] MEDS ORDERED: SODIUM CHLORIDE 0.9% 1000ML 1,000 ML IV STA (21:06)
[2016-09-06] MEDS ORDERED: MoRPHine SULFATE 10 MG/ML CARP/VIAL IV STA (21:06)
--- NOTE | 2016-09-06 21:11 | EMERGENCY ROOM VISIT NOTE ---
History Report prepared by Gissel: Abdifatah Barone Under the Supervision of: Dr. Morris Acuna M.D. First contact with patient: 21:03 Chief Complaint: SHORTNESS OF BREATH Stated Complaint: BREATHING DIFFICULTY/DIZZY History of Present Illness The patient is a 35 year old female who presents to the Emergency Room with complaints of persistent shortness of breath beginning a few hours ago. She notes she was cleaning her bathroom and started mixing cleaning agents together including Drano, bleach, and chlorine. She states she was not trying to harm herself. The patient notes she currently has a migraine, chest pain, and a cough. Source of History: patient Onset: a few hours ago Position: other (lungs) Quality: other (SOB) Timing: other (persistent) Associated Symptoms: + chest pain, + cough, + headache Review of Systems See HPI for pertinent positives & negatives. A total of 10 systems reviewed and were otherwise negative. Past Medical & Surgical Medical Problems: (1) Appendectomy (2) section (3) CHEMICAL EXPOSURE PNEUMONITIS (4) Cholecystectomy (5) Drug overdose (6) GABAPENTIN OVERDOSE (7) Gastroparesis (8) Hepatitis C (9) History of - hysterectomy (10) IRRITABLE BOWEL SYNDROME (11) IV drug abuse (12) Laparoscopy (13) Migraine (14) Pancreatitis (15) Pyelonephritis (16) Spinal stenosis (17) XANAX OVERDOSE Family History Cancer Cardiovascular disease Social History Smoking Status: Current Every Day Smoker Alcohol Use: none Drug Use: heroin Marital Status: single Housing Status: lives alone Occupation Status: disabled Current/Historical Medications Scheduled Alprazolam (Xanax), 1 MG PO QID Amoxicillin (Amoxil), 1 DOSE PO TID Estradiol (Estradiol), 0.5 MG PO DAILY Gabapentin (Neurontin), 300 MG PO TID Ipratropium-Albuterol (Combivent Respimat), 1 PUFF INH QID Pancrelipase (Lipase-Protease- (Pancreaze), 3 CAP PO TIDM Pantoprazole (Protonix), 40 MG PO DAILY Zolpidem Tartrate (Ambien), 10 MG PO HS Scheduled PRN Ibuprofen Tab (Advil), 400 MG PO Q8 PRN for Pain Allergies Coded Allergies: No Known Allergies (Unverified , 08/13/16) Physical Exam Vital Signs Date Time Temp Pulse Resp B/P Pulse Ox O2 Delivery O2 Flow Rate FiO2 09/06/16 22:35 94 19 121/43 98 Room Air 09/06/16 20:54 100 09/06/16 20:50 36.7 106 19 133/89 93 Room Air 09/06/16 20:50 93 Room Air 09/06/16 20:46 93 Room Air Physical Exam GENERAL: Patient is ill appearing and in moderate distress. Patient is persistently coughing. HEENT: No acute trauma, normocephalic atraumatic, mucous membranes moist, no nasal congestion, no scleral icterus. NECK: No stridor, no adenopathy, no meningismus, trachea is midline. LUNGS: No dyspnea. Clear to auscultation and equal bilaterally. No wheeze, no rhonchi. HEART: Regular rate and rhythm. No murmurs, rubs, gallops appreciated. ABDOMEN: Soft, nontender, bowel sounds positive, no masses appreciated, no peritonitis. BACK: No midline tenderness, no CVA tenderness EXTREMITIES: Normal motion all extremities, no cyanosis, no edema. NEUROLOGIC: Alert and oriented, no acute motor or sensory deficits, no focal weakness, cranial nerves grossly intact. SKIN: No rash, no jaundice, no diaphoresis. Medical Decision & Procedures ER Provider Diagnostic Interpretation: Radiology results and stated below per my review and radiologist interpretation: CHEST ONE VIEW PORTABLE FINDINGS: Internal fixation of an old right clavicle fracture. No pleural effusions. No pneumothorax. The heart is stable in size. Mild interstitial thickening, unchanged. No new focal lung consolidations. IMPRESSION: Stable mild interstitial thickening which may be chronic. No change from the prior study. Electronically signed by: Nav Shields M.D. 09/06/2016 9:57 PM Dictated Date/Time: 09/06/2016 9:56 PM Laboratory Results 09/06/16 20:24 Red Blood Count 4.87, Mean Corpuscular Volume 86.0, Mean Corpuscular Hemoglobin 30.2, Mean Corpuscular Hemoglobin Concent 35.1, Mean Platelet Volume 10.7, Neutrophils (%) (Auto) 63.0, Lymphocytes (%) (Auto) 28.4, Monocytes (%) (Auto) 6.4, Eosinophils (%) (Auto) 1.5, Basophils (%) (Auto) 0.2, Neutrophils # (Auto) 7.74, Lymphocytes # (Auto) 3.49, Monocytes # (Auto) 0.78, Eosinophils # (Auto) 0.19, Basophils # (Auto) 0.02 09/06/16 20:24 Test 09/06/16 20:24 09/06/16 22:37 White Blood Count 12.28 K/uL (4.8-10.8) Red Blood Count 4.87 M/uL (4.2-5.4) Hemoglobin 14.7 g/dL (12.0-16.0) Hematocrit 41.9 % (37-47) Mean Corpuscular Volume 86.0 fL (80-100) Mean Corpuscular Hemoglobin 30.2 pg (25-34) Mean Corpuscular Hemoglobin Concent 35.1 g/dl (32-36) Platelet Count 321 K/uL (130-400) Mean Platelet Volume 10.7 fL (7.4-10.4) Neutrophils (%) (Auto) 63.0 % Lymphocytes (%) (Auto) 28.4 % Monocytes (%) (Auto) 6.4 % Eosinophils (%) (Auto) 1.5 % Basophils (%) (Auto) 0.2 % Neutrophils # (Auto) 7.74 K/uL (1.4-6.5) Lymphocytes # (Auto) 3.49 K/uL (1.2-3.4) Monocytes # (Auto) 0.78 K/uL (0.11-0.59) Eosinophils # (Auto) 0.19 K/uL (0-0.5) Basophils # (Auto) 0.02 K/uL (0-0.2) RDW Standard Deviation 42.7 fL (36.4-46.3) RDW Coefficient of Variation 13.6 % (11.5-14.5) Immature Granulocyte % (Auto) 0.5 % Immature Granulocyte # (Auto) 0.06 K/uL (0.00-0.02) Red Blood Cell Morphology Unremarkable Anion Gap 12.0 mmol/L (3-11) Est Creatinine Clear Calc Drug Dose 98.8 ml/min Estimated GFR () 74.8 Estimated GFR (Non- 64.5 BUN/Creatinine Ratio 7.5 (10-20) Calcium Level 9.0 mg/dl (8.5-10.1) Troponin I < 0.015 ng/ml (0-0.045) Arterial Blood pH 7.35 (7.35-7.45) Arterial Blood Partial Pressure CO2 43 mmHg (35-46) Arterial Blood Partial Pressure O2 131 mm/Hg (80-95) Arterial Blood HCO3 23 mmol/L (19-24) Arterial Blood Oxygen Saturation 98.6 % (90-95) Arterial Blood Base Excess -2.2 mEq/L (-9-1.8) Arterial Blood Gas Delivery 7 L Indra Test POS (POS) Laboratory results as reviewed by me. Medications Administered Medications (Trade) Dose Ordered Sig/Alem Route Start Time Stop Time Status Last Admin Dose Admin Sodium Chloride (Nss 1000ml) 1,000 ml @ 75 mls/hr [id number] STAT IV 09/06/16 21:06 09/07/16 10:25 09/06/16 21:54 75 MLS/HR Morphine Sulfate (MoRPHine SULFATE INJ) 6 mg NOW STAT IV 09/06/16 21:06 09/06/16 21:09 DC 09/06/16 21:54 6 MG Ondansetron HCl (Zofran Inj) 4 mg NOW STAT IV 09/06/16 21:06 09/06/16 21:09 DC 09/06/16 21:55 4 MG Albuterol/ Ipratropium (Duoneb) 12 ml ONE ONCE INH 09/06/16 21:45 09/06/16 21:46 DC 09/06/16 22:04 12 ML Hydrocodone Bit/ Homatropine Methylb (Hycodan Syrup) 5 ml NOW STAT PO 09/06/16 21:34 09/06/16 21:35 DC 09/06/16 21:57 5 ML ECG Indication: SOB/dyspnea Rate (beats per minute): 80 Findings: T-wave inversion (Lateral), no ectopy, other (No STEMI; Prolonged QTC ) Comparison ECG Date: 08/13/16 Change: Prolonged QTC compared to 08/13/16. ED Course 2103: The patient was evaluated in room B12B. A complete history and physical exam was performed. 2105: Ordered Zofran Inj 4 mg IV, Morphine Sulfate 6 mg IV, and NSS 1,000 ml @ 75 mls/hr IV. 2133: Ordered Hycodan Syrup 5 ml PO. 2134: I reassessed the patient. She has an increased cough; I will give Duoneb. 2144: Ordered Duoneb 12 ml INH. 2151: Discussed the patient's case with Dr. Esha Khan. The patient will be evaluated for further treatment and disposition. Medical Decision Differential: Infectious, Reactive Airway Disease, Pneumonia, Pneumothorax, COPD , CHF, ACS, Pulmonary Embolism, MSK, GI, Dissection, Chemical Pneumonitis, amongst other etiologies entertained. 35 yr old female arrives with complaint of chemical inhalation. Notes mixing chemicals trying to clean bathroom resulting in gas cloud. Severe worsening of her lungs which are poor at baseline. She denies this was attempt at killing self nor at making methamphetamines. She is feeling better after above though requiring NC O2. Will need to come in for further monitoring/treatment. Given lung history and wheezing felt that steroids indicated. Consults Time Called: 2144 Consulting Physician: Dr. Esha Khan, [facility] Returned Call: [phone] Discussed the patient's case with Dr. Esha Khan. The patient will be evaluated for further treatment and disposition. Impression Primary Impression: Chemical pneumonitis Scribe Attestation The scribe's documentation has been prepared under my direction and personally reviewed by me in its entirety. I confirm that the note above accurately reflects all work, treatment, procedures, and medical decision making performed by me. Departure Information Dispostion Being Evaluated By Hospitalist Referrals No Doctor, Assigned (PCP) Patient Instructions My [facility]
[2016-09-06 21:15] LABS: HEMATOCRIT 41.9 % (37-47); MEAN CORPUSCULAR HEMOGLOBIN 30.2 pg (25-34); MEAN CORPUSCULAR HGB CONC 35.1 g/dl (32-36); MEAN PLATELET VOLUME 10.7 fL (7.4-10.4); PLATELET COUNT 321 K/uL (130-400); RED BLOOD COUNT 4.87 M/uL (4.2-5.4); WHITE BLOOD COUNT 12.28 K/uL (4.8-10.8)
[2016-09-06 21:24] LABS: BLOOD UREA NITROGEN 8 mg/dl (7-18); BUN/CREATININE RATIO 7.5 (10-20); CARBON DIOXIDE 23 mmol/L (21-32); CHLORIDE 106 mmol/L (98-107); GLUCOSE 94 mg/dl (70-99); POTASSIUM 3.7 mmol/L (3.5-5.1); SODIUM 141 mmol/L (136-145)
[2016-09-06] MEDS ORDERED: ZOLP10TA PO (21:33)
[2016-09-06] MEDS ORDERED: HYDROCODONE/HOMATROPINE SYRUP 5MG/1.5MG 5ML UDP PO STA (21:34)
[2016-09-06] MEDS ORDERED: AMOX500C3 PO (21:44)
[2016-09-06] MEDS ORDERED: ALBUT/IPRATROP 3MG/0.5MG NEB 3 ML VIAL INH ONE (21:45)
[2016-09-06] MEDS ORDERED: ALBUT/IPRATROP 3MG/0.5MG NEB 3 ML VIAL INH PRN (22:00)
[2016-09-06] MEDS ORDERED: IBUPROFEN 200 MG TAB PO PRN (22:00)
--- NOTE | 2016-09-06 22:00 | DIAGNOSTIC IMAGING REPORT ---
CHEST ONE VIEW PORTABLE HISTORY: chemical exposure COMPARISON: Chest 08/13/2016. FINDINGS: Internal fixation of an old right clavicle fracture. No pleural effusions. No pneumothorax. The heart is stable in size. Mild interstitial thickening, unchanged. No new focal lung consolidations. IMPRESSION: Stable mild interstitial thickening which may be chronic. No change from the prior study. Electronically signed by: Nav Shields M.D. 09/06/2016 9:57 PM Dictated Date/Time: 09/06/2016 9:56 PM
[2016-09-06 22:18] LABS: BASO % 0.2 %; BASO ABS # 0.02 K/uL (0-0.2); COMPLETE YES; EOS % 1.5 %; IG% 0.5 %; LYMPH % 28.4 %; LYMPH ABS # 3.49 K/uL (1.2-3.4); MONO % 6.4 %
[2016-09-06 22:51] LABS: ARTERIAL BLD GAS O2 SATURATION 98.6 % (90-95); ARTERIAL BLOOD GAS BASE EXCESS -2.2 mEq/L (-9-1.8); ARTERIAL BLOOD GAS HCO3 23 mmol/L (19-24); ARTERIAL BLOOD GAS PO2 131 mm/Hg (80-95); ARTERIAL BLOOD GAS pH 7.35 (7.35-7.45)
[2016-09-06 22:52] LABS: ALLEN TEST POS (POS); O2 ADMINISTRATION 7 L
[2016-09-06 23:30] VITALS: BP 123/77; PULSE 105; TEMP 37.1; O2SAT 93; Ht 172.7 cm; Wt 125.5 kg
[2016-09-07] VITALS (9 sets, daily range): BP systolic 94–117; BP diastolic 66–84; PULSE 59–83; TEMP 36.4–36.7; O2SAT 93–98
[2016-09-07] MEDS: SODIUM CHLORIDE 0.9% 1000ML 1,000 ML IV SCH ×3 (00:12→19:06)
[2016-09-07] MEDS: ACETAMINOPHEN 500 MG TAB PO PRN ×3 (00:13→11:55)
[2016-09-07 06:42] LABS: BASO % 0.1 %; BASO ABS # 0.01 K/uL (0-0.2); COMPLETE YES; IG% 0.2 %; LYMPH ABS # 0.66 K/uL (1.2-3.4); MEAN CELL VOLUME 86.2 fL (80-100); MEAN CORPUSCULAR HEMOGLOBIN 29.1 pg (25-34); MEAN CORPUSCULAR HGB CONC 33.8 g/dl (32-36); MEAN PLATELET VOLUME 10.4 fL (7.4-10.4); MONO % 1.4 %; NEUT % 93.3 %; PLATELET COUNT 249 K/uL (130-400); RED BLOOD COUNT 4.29 M/uL (4.2-5.4); WHITE BLOOD COUNT 13.16 K/uL (4.8-10.8)
[2016-09-07 07:16] LABS: BUN/CREATININE RATIO 8.5 (10-20); CALCIUM 8.3 mg/dl (8.5-10.1); CREATININE 0.94 mg/dl (0.60-1.20)
[2016-09-07 07:20] LABS: ALB/GLOB RATIO 0.9 (0.9-2)
[2016-09-07] MEDS: ALBUT/IPRATROP 3MG/0.5MG NEB 3 ML VIAL INH SCH ×4 (07:37→19:11)
[2016-09-07] MEDS: ALPRAZOLAM 0.5 MG TAB PO SCH ×4 (07:50→20:18)
[2016-09-07] MEDS: PANCREAZE (LIPASE 10,500U) CAP PO SCH ×3 (07:51→16:36)
[2016-09-07] MEDS: BENZONATATE 100MG CAP PO PRN ×3 (07:51→16:37)
[2016-09-07] MEDS: PANTOprazole SOD 40 MG TAB PO SCH (07:52)
[2016-09-07] MEDS: LURASIDONE HCL 40 MG TAB PO SCH (07:52)
[2016-09-07] MEDS: GABAPENTIN 300 MG CAP PO SCH ×3 (07:52→20:17)
[2016-09-07] MEDS: ESTRADIOL 1 MG TAB PO SCH (07:52)
--- NOTE | 2016-09-07 15:37 | HISTORY & PHYSICAL EXAMINATION ---
DATE OF ADMISSION: 09/06/2016 HISTORY OF PRESENT ILLNESS: A 35-year-old female admitted through the Emergency Room with shortness of breath and wheezing after inhalation of chemicals consisting of Drano and Clorox. The patient with multiple medical problems including bipolar disorder, history of hepatitis C, history of pancreatitis, history of smoking, history of drug abuse including heroin, has had multiple hospitalizations with overdose of different medications including gabapentin and alprazolam on 2 separate occasions. The patient is at home. She was cleaning her bathroom. She used different cleaning products that she mixed together including Drano and Clorox. Subsequently, she started experiencing cough and shortness of breath and wheezing. She also was complaining of a headache. The patient came to the Emergency Room. She was evaluated by Dr. Acuna. The concern was about a chemical pneumonitis. The patient was admitted for further treatment and evaluation. The patient definitely denied any attempt to harm herself intentionally. PAST MEDICAL HISTORY: 1. Multiple prior hospitalizations with drug overdose including alprazolam and gabapentin. 2. Longstanding history of depression. Recently she was started on Latuda 40 mg daily by her psychiatrist. 3. Appendectomy in 2003. 4. Cholecystectomy in 2003. 5. She has had 2 C-sections in 1999 and 2001. 6. Partial hysterectomy followed by complete hysterectomy in the past. She has been on hormonal replacement therapy. 7. Right meniscus surgery in 2003. 8. Tonsillectomy and adenoidectomy at age 10. 9. Carpal tunnel decompression surgery in 2011 on the left side and 2004 on the right side. 10. History of pancreatitis. She was treated at [facility]. At one time, she has required stenting of the pancreatic duct, but it was removed subsequently. The episode occurred back in 2009. 11. Longstanding history of drug overuse and abuse including heroin; she had been in the past on methadone and Suboxone, but now she is heroin free for about one years. 12. History of hepatitis C. At one time in the past, she was evaluated by Dr. Acosta and no treatment was indicated. SOCIAL HISTORY: She is . She has 2 children. She is a smoker up to 3 packs per day. She started smoking at age 11. Denied any alcohol and denied any drug use at the present time. She has had multiple jobs in the past but not working at this time. FAMILY HISTORY: Her father is treated for arterial hypertension and type 2 diabetes mellitus and hyperlipidemia. Her mother is in her 50s, alive and well. One brother has COPD. Her children are doing well. They are being raised by her mother. ALLERGIES: None. MEDICATIONS ON ADMISSION: Include: 1. Latuda 40 mg daily. 2. Combivent Respimat 1 inhalation 4 times a day. 3. Estradiol 0.5 mg daily. REVIEW OF SYSTEMS: The patient was feeling tired, was complaining of headache. No dizziness, no lightheadedness. No blurred vision. Denied any earache, sore throat or neck pain. No chest pain. She was complaining of dyspnea and wheezing and cough. No sputum, no hemoptysis. No abdominal pain, no nausea, no vomiting. No problem with her bowel movements or urination. No pain in her back or extremities. PHYSICAL EXAMINATION: GENERAL: Well developed in no distress. Her recorded weight is 125.5 kg, height 172.7 cm, BMI 42.2. VITAL SIGNS: On arrival to the Emergency Room, her blood pressure was 133/89, pulse 106, respirations 19, temperature 36.7, oxygen saturation 93% on room air. SKIN: Warm and dry. No rash. Multiple tattoos. None of them are new. HEENT: No evidence of any mucosal abnormalities in her nose, mouth or throat. NECK: Supple. Nontender. No lymph node or thyroid enlargement. No JVD. Normal carotid pulses. No carotid bruit. CHEST: Normal. HEART: Regular heart sounds without any murmur, rub or gallop. LUNGS: Bilateral scattered rhonchi and wheezes. ABDOMEN: Soft, nontender, without organomegaly or masses. BACK: No spinal tenderness. EXTREMITIES: No edema, clubbing, or cyanosis. No joint or muscle tenderness. Good pulses. NEUROLOGIC: She is alert and oriented without evidence of any deficit. ADMISSION LABORATORY TESTS: WBC count 12,280, hemoglobin 14.7, hematocrit 41.9, platelet count 321,000. Sodium 141, potassium 3.7, chloride 106, CO2 23, BUN 8, creatinine 1.1, glucose 94, calcium 9.0. Troponin I less than 0.015. ABGs done on 7-liter oxygen by nasal cannula showed a pH 7.35, pCO2 43, pO2 131, oxygen saturation 98.6%. IMAGING DATA: Her chest x-ray showed what is described as stable mild interstitial thickening which is thought to be chronic. No change compared to prior chest x-ray. Her electrocardiogram showed evidence of a sinus rhythm. She does have an inversion of the T waves in the lateral leads. This is considered to be new compared to prior electrocardiogram and thought to be nonspecific. ASSESSMENT: 1. Chemical pneumonitis secondary to exposure to fumes from mixing different cleaning products including Drano and Clorox. 2. Bipolar disorder. 3. Smoker. 4. History of hepatitis C. 5. History of pancreatitis. 6. History of multiple hospitalizations for drug overdose and prescribed medication overdose. 7. New findings of abnormal electrocardiogram. PLAN: The patient was admitted to medical bed. Resuscitation level 1. All her laboratory tests were ordered. The patient is not experiencing any chest pain. The patient was started on IV fluid. High flow treatments. Oxygen if needed. She was continued on her oral medications. The plan is to make sure that she is stable from a respiratory standpoint. We will be repeating her electrocardiogram. If her respiratory status improves and she is stable, I plan on getting a stress echocardiogram done because of the new changes on her electrocardiogram. JOHANNA
[2016-09-07] MEDS: ZOLPIDEM TARTRATE 10 MG TAB PO SCH (21:01)
--- NOTE | 2016-09-07 21:36 | PROGRESS NOTE ---
DATE: 09/07/2016 HISTORY OF PRESENT ILLNESS: A 35-year-old female, admitted with shortness of breath and wheezing secondary to chemical exposure. She was cleaning her bathroom and she mixed cleaning products including Drano and Clorox. She was complaining of shortness of breath. She was wheezing. Overall, her condition improved. She is still having cough, but not producing any sputum; keeping in mind she is also a 2-pack per day smoker. She denied any headache; it has resolved. No dizziness. She complains of some pressure in her chest. Has persistent cough. No nausea, no vomiting. No pain in her back or extremities. Her electrocardiogram which was done yesterday; consistent of T-wave inversions in the inferior and lateral leads. PHYSICAL EXAMINATION: GENERAL: Well-developed, in no distress. VITAL SIGNS: Blood pressure 116/74, pulse 70, respirations 20, temperature 36.4 and oxygen saturation 93% on room air. SKIN: Warm and dry. No rash. HEENT: No evidence of any mucosal abnormality. NECK: No JVD, no adenopathy. HEART: Regular heart sounds. LUNGS: Completely clear. Wheezing all resolved. ABDOMEN: Soft and nontender. EXTREMITIES: No edema, clubbing or cyanosis. TODAY'S LABORATORY TESTS: WBC count 13,160, hemoglobin 12.5, hematocrit 37% and platelet count 249,000. Sodium 141, potassium 4.0, chloride 109, CO2 25, BUN 8, creatinine 0.94, glucose 150, calcium 8.3, total bilirubin 0.5, AST 30, ALT 28, alkaline phosphatase 96, total protein 6.8 and albumin 3.3. Repeat electrocardiogram done today showed sinus rhythm. All the T-wave inversions and abnormalities in the inferior and lateral leads have resolved. ASSESSMENT: 1. Acute pneumonitis secondary to chemical exposure by mixing Drano, Clorox and other cleaning products. 2. New EKG changes which were transient, consistent of T-wave inversions in the inferolateral leads. 3. Bipolar disorder. PLAN: 1. At this time, she is stable. She is asymptomatic. 2. I did order a stress echocardiogram to be done because of the new EKG changes, even though they have resolved. 3. Continuing all her medications. 4. She was encouraged to get out of bed and ambulate.
[2016-09-08] MEDS: BENZONATATE 100MG CAP PO PRN (06:00)
[2016-09-08] MEDS: ACETAMINOPHEN 500 MG TAB PO PRN ×2 (06:04→17:34)
[2016-09-08 06:42] LABS: BASO % 0.1 %; BASO ABS # 0.01 K/uL (0-0.2); COMPLETE YES; EOS % 1.2 %; HEMATOCRIT 35.4 % (37-47); IG% 0.4 %; LYMPH % 28.5 %; LYMPH ABS # 2.66 K/uL (1.2-3.4); MEAN CELL VOLUME 88.9 fL (80-100); MEAN CORPUSCULAR HEMOGLOBIN 30.2 pg (25-34); MEAN CORPUSCULAR HGB CONC 33.9 g/dl (32-36); MEAN PLATELET VOLUME 10.5 fL (7.4-10.4); MONO % 7.8 %; PLATELET COUNT 215 K/uL (130-400); RED BLOOD COUNT 3.98 M/uL (4.2-5.4); WHITE BLOOD COUNT 9.32 K/uL (4.8-10.8)
[2016-09-08] MEDS: ALBUT/IPRATROP 3MG/0.5MG NEB 3 ML VIAL INH SCH ×4 (07:21→19:36)
[2016-09-08 07:23] VITALS: PULSE 59; O2SAT 98
[2016-09-08 07:26] VITALS: BP 108/71; PULSE 67; TEMP 36.8; O2SAT 97
[2016-09-08] MEDS: PANCREAZE (LIPASE 10,500U) CAP PO SCH ×5 (08:00→17:33)
[2016-09-08] MEDS: PANTOprazole SOD 40 MG TAB PO SCH (08:06)
[2016-09-08] MEDS: GABAPENTIN 300 MG CAP PO SCH ×3 (08:06→19:57)
[2016-09-08] MEDS: ESTRADIOL 1 MG TAB PO SCH (08:07)
[2016-09-08] MEDS: LURASIDONE HCL 40 MG TAB PO SCH (08:07)
[2016-09-08] MEDS: ALPRAZOLAM 0.5 MG TAB PO SCH ×4 (08:11→19:57)
[2016-09-08 12:00] VITALS: PULSE 59; O2SAT 98
[2016-09-08 14:46] VITALS: BP 109/76; PULSE 73; TEMP 36.6; O2SAT 98
[2016-09-08 15:27] VITALS: PULSE 76; O2SAT 98
[2016-09-08 19:36] VITALS: PULSE 74; O2SAT 98
[2016-09-08] MEDS ORDERED: NURSING VERBAL MED ORDER ONE (19:45)
[2016-09-08] MEDS: ZOLPIDEM TARTRATE 10 MG TAB PO SCH (19:58)
[2016-09-08] MEDS ORDERED: TRAMADOL HCL 50 MG TAB ONE (19:59)
[2016-09-08] MEDS ORDERED: TRAMADOL HCL 50 MG TAB PO ONE (20:45)
--- NOTE | 2016-09-09 | PROGRESS NOTE ---
DATE: 09/08/2016 HISTORY OF PRESENT ILLNESS: A 35-year-old female, admitted with acute pneumonitis secondary to chemical inhalation. She was cleaning her bathroom. She mixed different products including Drano and Clorox. She became short of breath and was wheezing. She also had headache. Overall, her condition improved. Her oxygenation remained normal. Her shortness of breath subsided. Her wheezing subsided. On admission, her electrocardiogram showed inversion of the T waves in the inferior and lateral leads. Her headache subsided. She has had no fever. No chills. No abdominal pain, no nausea and no vomiting. She has not had any chest pain. Initially, with the shortness of breath and wheezing she was complaining of chest tightness. PHYSICAL EXAMINATION: GENERAL: Well-developed, in no distress. VITAL SIGNS: Blood pressure 108/71, pulse 67, respirations 20, temperature 36.8 and oxygen saturation 97% on room air. SKIN: Warm and dry. No rash. HEENT: No mucosal abnormalities. NECK: No JVD. No adenopathy. HEART: Regular heart sounds. LUNGS: Clear. ABDOMEN: Soft and nontender, without organomegaly or masses. BACK: No spinal tenderness. EXTREMITIES: No edema, clubbing or cyanosis. TODAY'S LABORATORY TESTS: WBC count 9320, hemoglobin 12, hematocrit 35.4 and platelet count 215,000. ASSESSMENT: 1. Pneumonitis, secondary to chemical inhalation. 2. Abnormal electrocardiogram with transient inversion of the T waves in the inferior and lateral leads. 3. Depression. 4. History of hepatitis C. 5. History of pancreatitis. PLAN: 1. Overall, her condition improved. 2. The patient had a stress echocardiogram done today. There has been no evidence of any ischemia. Her stress test was normal. 3. Continue ambulation. Her respiratory status is being monitored. 4. If she remains stable tonight without any new problems, I anticipate discharging her home tomorrow.
[2016-09-09 01:03] VITALS: BP 107/68; PULSE 64; TEMP 36.6; O2SAT 96
[2016-09-09] MEDS ORDERED: ONDANSETRON INJ 8 MG in DEXTROSE 5% 50ML 50 ML IV PRN (05:15)
[2016-09-09] MEDS: ALUMINUM/MAGNESIUM/SIMETH (MAALOX MAX) 30 ML UDC PO PRN ×2 (05:17→06:23)
[2016-09-09] MEDS: ACETAMINOPHEN 500 MG TAB PO PRN (05:17)
[2016-09-09] MEDS: BENZONATATE 100MG CAP PO PRN (05:26)
[2016-09-09 07:10] LABS: BASO % 0.3 %; BASO ABS # 0.02 K/uL (0-0.2); COMPLETE YES; EOS % 2.3 %; IG% 0.4 %; LYMPH % 30.7 %; LYMPH ABS # 2.14 K/uL (1.2-3.4); MEAN CELL VOLUME 88.5 fL (80-100); MEAN CORPUSCULAR HEMOGLOBIN 29.7 pg (25-34); MEAN CORPUSCULAR HGB CONC 33.5 g/dl (32-36); MONO % 7.3 %; PLATELET COUNT 250 K/uL (130-400); RED BLOOD COUNT 4.18 M/uL (4.2-5.4); WHITE BLOOD COUNT 6.98 K/uL (4.8-10.8)
[2016-09-09 07:28] VITALS: PULSE 78; O2SAT 98
[2016-09-09] MEDS: ALBUT/IPRATROP 3MG/0.5MG NEB 3 ML VIAL INH SCH (07:28)
[2016-09-09 07:43] VITALS: BP 99/69; PULSE 63; TEMP 36.5; O2SAT 98
[2016-09-09 07:49] LABS: BUN/CREATININE RATIO 14.2 (10-20); CALCIUM 8.7 mg/dl (8.5-10.1); CREATININE 0.92 mg/dl (0.60-1.20); POTASSIUM 3.7 mmol/L (3.5-5.1)
[2016-09-09] MEDS ORDERED: LTD40 PO (07:52)
[2016-09-09] MEDS ORDERED: ONDA8TAB62 SL (07:52)
--- NOTE | 2016-09-09 07:54 | Discharge Instructions ---
Discharge Instructions Date of Service Sep 09, 2016. Admission Reason for Admission: Chemical Exposure Pneumonitis Discharge Discharge Diagnosis / Problem: Pneumonitis secondary to chemical inhalation. depression. dyspepsia Discharge Goals Goal(s): Decrease discomfort, Improve function, Increase independence, Improve disease control Activity Recommendations Activity Limitations: resume your previous activity . Instructions / Follow-Up Instructions / Follow-Up DR VILLASEÑOR IN ONE WEEK Current Hospital Diet Patient's current hospital diet: Regular Diet Discharge Diet Recommended Diet: Regular Diet Pending Studies Studies pending at discharge: no Medical Emergencies . Who to Call and When: Medical Emergencies: If at any time you feel your situation is an emergency, please call 911 immediately. . Non-Emergent Contact Non-Emergency issues call your: Primary Care Provider . . "Provider Documentation" section prepared by Anil Villaseñor. . VTE Core Measure Inpt VTE Proph given/why not?: Treatment not indicated
[2016-09-09 07:59] VITALS: BP 99/69; PULSE 63; TEMP 36.5; O2SAT 98
[2016-09-09] MEDS: PANCREAZE (LIPASE 10,500U) CAP PO SCH (08:00)
[2016-09-09] MEDS ORDERED: ONDANSETRON 8MG OD TAB PO ONE (08:00)
[2016-09-09] MEDS: ALPRAZOLAM 0.5 MG TAB PO SCH (08:21)
[2016-09-09] MEDS: LURASIDONE HCL 40 MG TAB PO SCH (08:21)
[2016-09-09] MEDS: PANTOprazole SOD 40 MG TAB PO SCH (08:22)
[2016-09-09] MEDS: ESTRADIOL 1 MG TAB PO SCH (08:22)
[2016-09-09] MEDS: GABAPENTIN 300 MG CAP PO SCH (08:24)
--- NOTE | 2016-09-09 21:29 | PROGRESS NOTE ---
DATE: 09/09/2016 HISTORY OF PRESENT ILLNESS: A 35-year-old female, admitted with pneumonitis secondary to fume exposure. She was cleaning her bathroom and she mixed different cleaning products including Drano and Clorox. She was complaining of shortness of breath and wheezing. The patient was admitted. Her respiratory status was monitored. There have been no complications. On her admission electrocardiogram, she has inverted T-waves in the inferior and lateral leads. A stress echocardiogram was done yesterday. The test was normal without evidence of any ischemia. Subsequent electrocardiogram showed resolution of the T-wave inversions. During the night, the patient was complaining of nausea and also she had vomiting. She denied any headache. No dizziness. No chest pain, no shortness of breath. She does have a chronic cough. She is a smoker, up to 2 packs per day. She denied any abdominal pain. No further nausea or vomiting. No pain in her back or extremities. PHYSICAL EXAMINATION: GENERAL: Well-developed, in no distress. VITAL SIGNS: Blood pressure 99/69, pulse 63, respirations 18, temperature 36.5 and oxygen saturation 98% on room air. SKIN: Warm and dry. No rash. HEENT: Multiple piercings. NECK: Supple without adenopathy or thyromegaly. HEART: Regular heart sounds. LUNGS: Scattered rhonchi. No wheezing. ABDOMEN: Soft and nontender. BACK: No spinal tenderness. EXTREMITIES: No edema, clubbing or cyanosis. LABORATORY TESTS: WBC count 6980, hemoglobin 12.4, hematocrit 37% and platelet count 250,000. Sodium 141, potassium 3.7, chloride 110, CO2 26, BUN 13 and creatinine 0.92. Glucose 83, calcium 8.7, total bilirubin 0.3, AST 15, ALT 25, alkaline phosphatase 86, total protein 6.7, albumin 3.3, globulin 3.4, amylase 37 and lipase 214. ASSESSMENT: 1. Pneumonitis, secondary to chemical exposure with fumes from a combination of Drano and Clorox. 2. Abnormal EKG with normal stress echocardiogram. 3. Depression. 4. History of pancreatitis. PLAN: 1. Overall, her condition is stable. 2. She was discharged home. 3. A prescription was called to her pharmacy at [facility] for Zofran solutab 8 mg every four hours as needed for nausea. 4. She also needed a prescription for her gabapentin 300 mg three times a day and the prescription was written. 5. Follow up in the office in one week.
--- NOTE | 2016-09-10 09:11 | EXERCISE STRESS ECHO ---
*NOTICE TO RECEIVING [employer] This information is strictly Confidential and protected under [place] law. [place] law prohibits you from making any further disclosure of this information unless further disclosure is expressly permitted by the written consent of the person to whom it pertains or is authorized by law. A general authorization for the release of medical or other information is not sufficient for this purpose. Hospital accepts no responsibility if the information is made available to any other person, INCLUDING THE PATIENT. Interpretation Summary * Name: KISHA MYERS Study Date: 09/08/2016 08:35 AM BP: 103/50 mmHg * [place] [facility] [id number] HR: 64 * : 1980 (M/d/yyyy) Gender: Female Height: 68 in * Age: 35 yrs Ethnicity: [place] Weight: 276 lb * Ordering Physician: Anil Scott * Referring Physician: NIMA DELGADO * Performed By: Judy Leyva RDCS * * Reason For Study: CHEST PAIN * BSA: 2.3 m2 * History: CHEST PAIN * -- Conclusions -- * Normal stress echocardiogram at 10 METS and a peak heart rate of 82% predicted maximum. * No exercise induced chest pain. * No ECG changes. * Baseline echocardiogram notes normal left ventricular systolic function and no significant valvular pathology. Procedure Details * ECHOEX, CPT #[id number] Left Ventricle * The left ventricle is normal in size. * There is normal left ventricular wall thickness. * Ejection Fraction = 55-60%. * Resting wall motion: Normal. Stress wall motion: Appropriate increase in Left ventricular systolic function and decrease in cavity size. No stress induced segmental wall motion abnormalities. Right Ventricle * The right ventricle is normal in size and function. * The right ventricular systolic function is normal as assessed by tricuspid annular plane systolic excursion (TAPSE) (normal >1.5 cm). Atria * The left atrial size is normal. * Right atrial size is normal. * No ASD detected; PFO is not assessed. Mitral Valve * The mitral valve is normal in structure and function. * There is no mitral valve stenosis. * There is trace mitral regurgitation. Tricuspid Valve * The tricuspid valve anatomy is normal. * There is no tricuspid stenosis. * There is trace tricuspid regurgitation. Aortic Valve * The aortic valve is normal in structure and function. * No hemodynamically significant valvular aortic stenosis. * No aortic regurgitation is present. Pulmonic Valve * The pulmonary valve is not well seen, but the Doppler examination is normal without significant regurgitation or stenosis. Great Vessels * The aortic root and proximal ascending aorta are normal sized. * The pulmonary artery is not well visualized, but is probably normal size. Pericardium * There is no pericardial effusion. Stress Parameters * Normal baseline electrocardiogram. * Stress ECG: No ST changes. No arrhythmias. * The stress portion of this study was personally supervised by the undersigned interpreting physician. * Rest heart rate was '64' BPM. * Rest blood pressure was '103/50' * Maximum heart rate achieved was 151 bpm. * Maximum heart rate was 82 % of maximum age-predicted heart rate. * Maximum blood pressure was '157/65' * Total exercise time was '7:57' * Maximum exercise MET level achieved was '10' METS * Maximum treadmill speed was '3.40' miles per hour. * Maximum treadmill elevation was '14.00'% grade. * Exercise was terminated due to 'FATIGUE' MMode 2D Measurements and Calculations IVSd 0.80 cm IVSs 1.3 cm LVIDd 5.1 cm LVIDs 3.6 cm LVPWd 0.87 cm LVPWs 1.6 cm IVS/LVPW 0.91 FS 28.1 % EDV(Teich) 122.2 ml ESV(Teich) 56.2 ml EF(Teich) 54.0 % EDV(cubed) 130.5 ml ESV(cubed) 48.6 ml EF(cubed) 62.8 % % IVS thick 58.5 % % LVPW thick 82.0 % LV mass(C)d 146.7 grams LV mass(C)dI 62.6 grams/m\S\2 LV mass(C)s 188.3 grams LV mass(C)sI 80.3 grams/m\S\2 SV(Teich) 66.0 ml SI(Teich) 28.2 ml/m\S\2 SV(cubed) 81.9 ml SI(cubed) 34.9 ml/m\S\2 LA dimension 3.5 cm LVAd ap4 36.1 cm\S\2 LVLd ap4 9.1 cm EDV(MOD-sp4) 120.0 ml LVAs ap4 21.3 cm\S\2 LVLs ap4 7.5 cm ESV(MOD-sp4) 52.1 ml EF(MOD-sp4) 56.6 % LVAd ap2 36.2 cm\S\2 LVLd ap2 9.3 cm EDV(MOD-sp2) 125.0 ml LVAs ap2 21.1 cm\S\2 LVLs ap2 7.9 cm ESV(MOD-sp2) 50.5 ml EF(MOD-sp2) 59.6 % SV(MOD-sp4) 67.9 ml SI(MOD-sp4) 29.0 ml/m\S\2 SV(MOD-sp2) 74.5 ml SI(MOD-sp2) 31.8 ml/m\S\2 Doppler Measurements and Calculations MV E max donell 91.2 cm/sec MV A max donell 40.3 cm/sec MV E/A 2.3 MV dec time 0.24 sec Ao V2 max 120.5 cm/sec Ao max PG 5.8 mmHg Ao max PG (full) 3.6 mmHg LV V1 max PG 2.2 mmHg LV V1 max 74.7 cm/sec
--- NOTE | 2016-09-20 03:22 | DISCHARGE SUMMARY ---
DISCHARGE DIAGNOSES: 1. Pneumonitis secondary to chemical inhalation, accidental. 2. Depression. 3. History of drug overdose, mostly heroin. 4. Smoker. 5. History of hepatitis C. 6. History of pancreatitis with chronic pancreatic insufficiency. 7. Abnormal electrocardiogram. DISCHARGE MEDICATIONS: Included: 1. Latuda 40 mg daily. 2. Zofran ODT 8 mg every six hours as needed for nausea. 3. Alprazolam 1 mg four times a day. 4. Estradiol 0.5 mg daily. 5. Gabapentin 300 mg three times a day. 6. Ibuprofen 400 mg every eight hours as needed for pain. 7. Combivent Respimat 1 inhalation four times a day. 8. Pancrease 3 capsules three times a day with meals. 9. Protonix 40 mg daily. 10. Ambien 10 mg at bedtime if needed. PROCEDURE: Stress echocardiogram which was normal; it was done by Naif Jimenez MD. HISTORY OF PRESENT ILLNESS: A 35-year-old female, admitted through the Emergency Room with shortness of breath and wheezing after inhalation of chemicals including Drano and Clorox. The patient with multiple medical problems including bipolar disorder, history of hepatitis C, history of pancreatitis, smoking, history of drug abuse including heroin and multiple hospitalizations for multi-drug overdose. The patient was cleaning her bathroom at home. She used different cleaning products including Drano and Clorox; mixed together. Subsequently, she started experiencing cough, shortness of breath and wheezing. She also was complaining of a headache. She came to the Emergency Room. She was evaluated by Dr. Acuna. The concern was about chemical pneumonitis. She was admitted for further evaluation and treatment. PAST MEDICAL HISTORY, SOCIAL HISTORY AND FAMILY HISTORY: All as noted. ALLERGIES: None. MEDICATIONS ON ADMISSION: As noted on her history and physical. PHYSICAL EXAMINATION AND ADMISSION LABORATORY TESTS: All as noted. HOSPITAL COURSE: The patient was admitted to a medical bed. Resuscitation level 1. All her laboratory tests were ordered. She was not experiencing any chest pain. She was given IV fluids and high-flow treatments. Oxygen if needed. Her electrocardiogram was abnormal showing evidence of ST segment depression, suspicious for ischemia. A stress echocardiogram was done. It was negative for any ischemia. The following day, her electrocardiogram was back to normal baseline. She was continuing to complain of cough and wheezing. She was continued on her medications. She was not in any distress. Her oxygenation was adequate. She was ambulating. Tolerating her diet. Her respiratory status became stable and there was no further progression of her symptoms; on the contrary, they have improved. The patient was discharged home. Medications as noted above. Follow up in the office.
== END 2016-09-09 10:52 | disposition home or self-care (01) | DRG 918 ==
LOC: ENRESERVTM → ENRESERVDT → EDBD 20:40 → C.EDB 20:43 → C.4E 22:11
PROVIDERS: ADMIT Internal Medicine; ATTEND Internal Medicine
DX: T54.3X1A Toxic effect of corrosive alkalis and alkali-like substances, accidental (unintentional), initial encounter (principal); J68.0 Bronchitis and pneumonitis due to chemicals, gases, fumes and vapors; T54.91XA Toxic effect of unspecified corrosive substance, accidental (unintentional), initial encounter; Y92.002 Bathroom of unspecified non-institutional (private) residence as the place of occurrence of the external cause; R51 Headache; R94.31 Abnormal electrocardiogram [ECG] [EKG]; F31.9 Bipolar disorder, unspecified; F17.200 Nicotine dependence, unspecified, uncomplicated; Z86.19 Personal history of other infectious and parasitic diseases; Z87.898 Personal history of other specified conditions; Z79.890 Hormone replacement therapy; Z79.899 Other long term (current) drug therapy

== ENCOUNTER 2016-11-06 01:41 | Emergency (ER) | payer OTHER ==
[~2016-11-06] VITALS: Ht 180.3 cm; Wt 122.6 kg
[~2016-11-06 01:41] MED LIST changes: -GABA800T PO; +LTD40 PO; -MONT1TAB5 PO; +ONDA8TAB62 SL; +ZOLP10TA PO
[2016-11-06 01:58] VITALS: TEMP 37.1; Ht 180.3 cm; Wt 122.6 kg
[2016-11-06] MEDS ORDERED: PSEUDOEPHEDRINE HCL 30 MG TAB PO STA (02:25)
[2016-11-06] MEDS ORDERED: KETOROLAC TROMETHAMINE 60 MG/2 ML VIAL IM STA (02:25)
[2016-11-06] MEDS ORDERED: ALBUT/IPRATROP 3MG/0.5MG NEB 3 ML VIAL INH STA (02:25)
[2016-11-06] MEDS ORDERED: DEXAMETHASONE SOD INJ 10 MG/ML VIAL PO ONE (02:30)
[2016-11-06] MEDS ORDERED: AMOXICIL/CLAVU 875MG HOME PACK PO ONE (03:00)
[2016-11-06] MEDS ORDERED: AMOX875T PO (03:00)
[2016-11-06] MEDS ORDERED: PRED50TA PO (03:00)
--- NOTE | 2016-11-06 03:14 | EMERGENCY ROOM VISIT NOTE ---
History First contact with patient: 02:15 Chief Complaint: ABDOMINAL PAIN Stated Complaint: PAIN RIGHT SIDE,MIGRAINE,STUFFINESS Nursing Triage Summary: patient reports congestion and headache History of Present Illness The patient is a 35 year old female who presents to the Emergency Room with complaints of sinus pain, sinus congestion, sinus headache, cough, runny nose yelling green rhinorrhea for the past few days has a history of sinus infections and symptoms of similar. Patient had an old amoxicillin tablet and took this with no relief of symptoms. Patient tried a breathing treatment with no real improvement of symptoms. Patient denies chest pain, dyspnea, neck stiffness, sore throat, abdominal pain, vomiting, diarrhea. She is tolerating by mouth fluids and food. Review of Systems See HPI for pertinent positives & negatives. A total of 10 systems reviewed and were otherwise negative. Past Medical/Surgical History Medical Problems: (1) Appendectomy (2) section (3) CHEMICAL EXPOSURE PNEUMONITIS (4) Cholecystectomy (5) Drug overdose (6) GABAPENTIN OVERDOSE (7) Gastroparesis (8) Hepatitis C (9) History of - hysterectomy (10) IRRITABLE BOWEL SYNDROME (11) IV drug abuse (12) Laparoscopy (13) Migraine (14) Pancreatitis (15) Pyelonephritis (16) Spinal stenosis (17) XANAX OVERDOSE Family History Cancer Cardiovascular disease Social History Smoking Status: Current Every Day Smoker Alcohol Use: none Drug Use: heroin Marital Status: single Housing Status: lives alone Occupation Status: disabled Current/Historical Medications Scheduled Alprazolam (Xanax), 1 MG PO QID Amoxicillin & Pot Clavulanate (Augmentin 875-125 mg), 1 TAB PO BID Estradiol (Estradiol), 0.5 MG PO DAILY Gabapentin (Neurontin), 300 MG PO TID Ipratropium-Albuterol (Combivent Respimat), 1 PUFF INH QID Lurasidone HCl (Latuda), 40 MG PO DAILY Pancrelipase (Lipase-Protease- (Pancreaze), 3 CAP PO TIDM Pantoprazole (Protonix), 40 MG PO DAILY Prednisone (Prednisone), 50 MG PO DAILY Zolpidem Tartrate (Ambien), 10 MG PO HS Scheduled PRN Ibuprofen Tab (Advil), 400 MG PO Q8 PRN for Pain Ondansetron Odt (Zofran Odt), 8 MG SL Q6H PRN for Nausea Allergies Coded Allergies: No Known Allergies (Unverified , 11/06/16) Physical Exam Vital Signs Date Time Temp Pulse Resp B/P (MAP) Pulse Ox O2 Delivery O2 Flow Rate FiO2 11/06/16 01:58 37.1 118 20 145/79 99 Room Air Physical Exam VITALS: Vitals are noted on the nurse's note and reviewed by myself. Vital signs tachycardic. GENERAL: Pleasant female, in no acute distress, nondiaphoretic, well-developed well-nourished. SKIN: The skin was without rashes, erythema, edema, or bruising. There is no tenting of the skin. Capillary reflex less than 2 seconds. HEAD: Normocephalic atraumatic. EARS: External auditory canals clear, tympanic membranes pearly lynne without erythema or effusion bilaterally. EYES: Pupils equal round and reactive to light and accommodation. Conjunctivae without injection, sclerae without icterus. Extraocular movements intact. NOSE: Patent, turbinates without inflammation or discharge. Bilateral maxillary sinus tenderness. MOUTH: Mucous membranes moist. Pharynx without erythema or exudate. Uvula midline. Airway patent. Tongue does not deviate. NECK: Supple without nuchal rigidity. No lymphadenopathy. No thyromegaly. Cervical spine is nontender. No JVD. No meningeal signs HEART: Regular rate and rhythm without murmurs gallops or rubs. LUNGS: Mild diffuse end expiratory wheezes, without rales or rhonchi. No dullness to percussion. No retractions or accessory muscle use. ABDOMEN: Positive bowel sounds x 4. Normal tympanic percussion. Soft, nontender, without masses or organomegaly. Glover sign negative. No guarding or rebound tenderness. MUSCULOSKELETAL: No muscle atrophy, erythema, or edema noted. NEURO: Patient was alert and oriented to person place and time. Normal sensation to light and sharp touch. No focal neurological deficits. Medical Decision & Procedures Medications Administered Medications (Trade) Dose Ordered Sig/Alem Route Start Time Stop Time Status Last Admin Dose Admin Dexamethasone Sodium Phosphate (Decadron Inj) 10 mg NOW ONCE PO 11/06/16 02:30 11/06/16 02:31 DC 11/06/16 02:57 10 MG Albuterol/ Ipratropium (Duoneb) 3 ml NOW STAT INH 11/06/16 02:25 11/06/16 02:27 DC 11/06/16 02:56 3 ML Pseudoephedrine HCl (Sudafed Tab) 60 mg NOW STAT PO 11/06/16 02:25 11/06/16 02:27 DC 11/06/16 02:56 60 MG Ketorolac Tromethamine (Toradol Inj) 60 mg NOW STAT IM 11/06/16 02:25 11/06/16 02:27 DC 11/06/16 02:57 60 MG ED Course Prior records/ancillary studies reviewed. Triage Nursing notes reviewed. Additional history obtained from friend. The patient's history was concerning for fever. Differential diagnosis: Etiologies such as viral syndrome, otitis, pharyngitis, pneumonia, influenza, meningitis, sepsis, bacteremia, as well as others were entertained. Physical examination: Patient alert, interactive and well-appearing ER treatment provided: Nebulizer, steroids, Augmentin. Patient has an inhaler at home On reassessment the patient felt better. Diagnostics interpreted by me: Imaging studies: Chest x-ray with no acute consolidation, pneumothorax or free air per my interpretation This appears to be consistent with sinusitis and bronchitis. Patient is advised take medications as directed. She is advised follow-up family care in a few days or here in the ER sooner for high fevers, neck stiffness, lethargy, worsening signs or symptoms or as needed. Patient no signs of meningitis on exam. She is well-appearing. No pneumonia.. By the evaluation outlined above emergent etiologies such as otitis, pharyngitis, pneumonia, meningitis, urinary tract infection, sepsis, bacteremia, as well as others were deemed relatively unlikely. The pt informed about the findings as listed above. All questions were answered and pleased with the treatment. Return instructions were outlined and the patient was discharged in stable condition. Outpatient prescription management: Augmentin, prednisone Referral: The patient was referred back to their primary care physician for follow-up in 2 to 3 days for a recheck of the current condition. Case reviewed with my attending Medical Decision As above Impression Primary Impression: Bronchitis Additional Impression: Acute maxillary sinusitis Departure Information Dispostion Home / Self-Care Condition GOOD Prescriptions Prednisone (Prednisone) 50 Mg Tab 50 MG PO DAILY for 4 Days, #4 TAB Prov: Charmaine Winkler .MALI 11/06/16 Amoxicillin & Pot Clavulanate (Augmentin 875-125 mg) 1 Tab Tab 1 TAB PO BID for 9 Days, #18 TAB Prov: Charmaine Winkler .MALI 11/06/16 Forms Call Back Authorization, HOME CARE DOCUMENTATION FORM, Work Instructions, Return To Work: 2 days IMPORTANT VISIT INFORMATION Patient Instructions Sinusitis Acute, Bronchitis Acute, My [facility] Additional Instructions Albuterol Inhaler: Take 2 puffs four times daily for five days, then as needed. Prednisone 50mg: Once daily until the prescription is finished. It is best to take this earlier in the day as some patients note occasional difficulty falling asleep when taken in the late evening. Rest and drink plenty of fluids. Avoid smoke/smoking, fumes, dust, or any triggers in the past that may have affected your breathing. Amoxicillin Clavulanate (Augmentin) 875mg: Take one pill twice daily for 10 days for your infection. All antibiotics can cause diarrhea. If this occurs and you feel worse or it does not resolve in 1-2 days follow up with your doctor or return to the Emergency Department as this could be signs of serious underlying problems. Any medication can cause an allergic reaction, stop the pills immediately and return to the ER for rash, hives, breathing difficulties, or swelling. Ibuprofen(Motrin, Advil) may be used for fever or pain. Use 600mg every six hours as needed. Take with food. Avoid using more than 2400mg in a 24 hour period. Do not use 2400mg per day for more than three consecutive days without physician direction. Prolonged inappropriate use can lead to stomach upset or ulcers. (AND/OR) Acetaminophen(Tylenol) may be used for fever or pain. Use 1000mg every six hours as needed. Avoid using more than 3000mg in a 24 hour period. Rest and drink plenty of fluids. Continue current medications. Return to the ER for severe pain, persistent fevers, spreading redness, or any worsening of your condition. Follow up with your primary physician within 2-3 days for a recheck of the current condition. Work Instructions Return To Work: 2 days Problem Qualifiers Additional Impression: Acute maxillary sinusitis Recurrence: recurrent Qualified Codes: J01.01 - Acute recurrent maxillary sinusitis
--- NOTE | 2016-11-06 03:35 | EMERGENCY ROOM VISIT NOTE ---
ED Visit Note First contact with patient: 02:15 I have personally seen and evaluated the patient with the PA. I agree with the diagnosis and management decisions and have been personally involved in the case. Please see Jessi Winkler PA-C's notes for further details of the history, physical and visit.
[2016-11-06 03:44] VITALS: BP 127/89; PULSE 105; O2SAT 94
--- NOTE | 2016-11-06 07:06 | DIAGNOSTIC IMAGING REPORT ---
CHEST 2 VIEWS ROUTINE CLINICAL HISTORY: cough COMPARISON STUDY: 09/03/2016 FINDINGS: The cardiac and mediastinal contours are normal. There is no evidence of focal pulmonary consolidation. There is no evidence of failure. No pleural effusions are visualized.[ Postsurgical changes involve the right clavicle IMPRESSION: No active disease in the chest. Electronically signed by: Jaret Rivera M.D. 11/06/2016 7:05 AM Dictated Date/Time: 11/06/2016 7:04 AM
== END 2016-11-06 03:45 | disposition home or self-care (01) ==
LOC: C.EDB 01:43 → C.EDA 03:45
DX: J40 Bronchitis, not specified as acute or chronic (principal); J01.01 Acute recurrent maxillary sinusitis; Z90.49 Acquired absence of other specified parts of digestive tract; K31.84 Gastroparesis; B19.20 Unspecified viral hepatitis C without hepatic coma; Z90.710 Acquired absence of both cervix and uterus; K58.9 Irritable bowel syndrome, unspecified; M48.00 Spinal stenosis, site unspecified; Z80.9 Family history of malignant neoplasm, unspecified; F17.210 Nicotine dependence, cigarettes, uncomplicated; F11.10 Opioid abuse, uncomplicated; Z79.899 Other long term (current) drug therapy

== ENCOUNTER 2020-09-25 20:37 | Inpatient (IN) ==
[2020-09-25 21:34] LABS: Basophils # (auto) 0.02 K/uL (0-0.2); Basophils % (auto) 0.2 %; Eosinophils # (auto) 0.25 K/uL (0-0.5); Hematocrit (blood only) 46.3 % (37-47); Hemoglobin 15.6 g/dL (12.0-16.0); Immature Granulocytes # (auto) 0.01 K/uL (0.00-0.02); Immature Granulocytes % (auto) 0.1 %; Lymphocytes # (auto) 2.67 K/uL (1.2-3.4); Lymphocytes % (auto) 32.5 %; Mean Corpuscular Hgb Conc 33.7 g/dL (32-36); Mean Platelet Volume 11.3 fL (7.4-10.4); Monocytes # (auto) 0.53 K/uL (0.11-0.59); Monocytes % (auto) 6.5 %; Neutrophils # (auto) 4.73 K/uL (1.4-6.5); Neutrophils % (auto) 57.7 %; Platelet Count 327 K/uL (130-400); RDW Coefficient of Variation 13.8 % (11.5-14.5); RDW Standard Deviation 45.4 fL (36.4-46.3); White Blood Count 8.21 K/uL (4.8-10.8)
[2020-09-25 21:41] LABS: Albumin Level 4.6 gm/dl (3.4-5.0); BUN Creatinine Ratio 12.7 (10-20); Calcium 9.7 mg/dl (8.5-10.1); Creatinine Clr Calc Pharmacy 103.2 ml/min; Est GFR (African American) 84.7 ml/min; Est GFR (Non-African American) 73.1 ml/min; Potassium 3.4 mmol/L (3.5-5.1)
[2020-09-25 21:51] LABS: Albumin Globulin Ratio 1.2 (0.9-2); Bilirubin,Total 0.5 mg/dl (0.2-1); Thyroid Stimulating Hormone 4.65 uIu/ml (0.300-4.500); Total Protein 8.6 gm/dl (6.4-8.2)
[2020-09-25 21:52] LABS: Acetaminophen < 2 ug/ml (10-30)
--- NOTE | 2020-09-25 21:52 | Emergency Department Note ---
Impression & Plan Overdose ED Provider Note NAME: KISHA MYERS AGE: 39 SEX: F : 1980 ARRIVES VIA: Ambulance INFORMANT: Patient, ED PROVIDER(S): Negro Barreto MD Chief Complaint: Overdose HPI: Patient does present with concern for possible overdose. The patient is here with a marine fuel dock attendant who states that they had called as she was concerned about her wellbeing. The patient stated that she needed the crisis number in th e event that she was having difficulty or concerns about harming herself. The marine fuel dock attendant had showed up at the patient's home and the patient significant other had told her that she was upstairs. The patient was difficult to arouse and was called 911. The patient at the bedside will answer questions. The patient states that she took 100 mg of Ambien around 2 AM. Patient denies alcohol tobacco or other drug use. No reported history of trauma or falls. ROS: See HPI for pertinent positives and negatives. A total of 10 systems were reviewed and otherwise negative. Past medical history: See below Surgical history: See below Social history: See below Physical Exam: GENERAL: Arousable to external stimuli. EYE EXAM: Mild conjunctival injection bilaterally without drainage. PERRL, no anisocoria and EOM's grossly intact w/o pain. [OROPHARYNX: Moist mucus membranes. Grossly normal dentition. ] NECK: Supple, no nuchal rigidity, no adenopathy, non-tender. No signs of meningismus. LUNGS: Clear to auscultation. Normal chest wall mechanics. HEART: NSR, no MRG. ABDOMEN: Abdomen soft, non-tender, normo-active bowel sounds, no masses, no rebound or guarding. BACK: No CVA TTP. SKIN: No rashes and no bruising. Likely dried paint seen on the patient's fingers. UPPER EXTREMITIES: Upper extremities are grossly normal. LOWER EXTREMITIES: Grossly normal, no edema. NEURO EXAM: Patient opens eyes to sternal rub and does move all 4 extremities. Patient responds to questions but falls asleep easily. Differential diagnoses: Overdose, toxicologic, infection, hypoglycemia, electrolyte abnormalities, cardiac sources, intracerebral event, neurologic, trauma, as well as other pathologies. Course: Patient was seen and evaluated the bedside. Full history physical exam was performed. EKG: Imaging Studies: See below Cardiac monitoring: An order was placed for continuous cardiac monitoring. The monitor shows a rate of 74 with sinus rhythm. MDM: Patient did present with concern for overdose. I did speak with [place] poison control recommended a 4 to 6-hour postingestion monitoring given the 100 mg. Otherwise they just recommended supportive care. The patient reportedly h as been using heroin and meth but unsure of how recent. Blood work is otherwise unremarkable. The patient is protecting her airway. Patient was made a 302 given the concern for intentional overdose. Patient was pending reevaluation and disposition. Patient was signed out to Dr. Acuna the overnight physician. Observation: Patient has PMX of overdose no pertinent family history. Observation began at 2151 on 09/25/20 and was necessary in order to rule out, monitor, reassess and mitigate the risk of the patient, ensure their relative safety, and potentially avoid an admission. Upon re-evaluation, observation revealed that the patient could be safely admitted at this time after reevaluation and disposition to [facility] for inpatient psychiatric treatment. Patient was diischarged from observation at 1318 on 09/26/20 to inpatient psychiatric treatment Past Med/Surg History Medical History Abdominal pain Acute bronchitis with bronchospasm Acute febrile illness Drug overdose Generalized muscle ache Hepatitis C Low back pain with sciatica Migraine MRSA infection Pleurisy Polysubstance overdose Pruritus Pyelonephritis Rhus dermatitis Sacral fracture Sepsis Shoulder impingement Sinusitis Suicidal ideation Symptoms of urinary tract infection URI (upper respiratory infection) Urinary tract infection Social History Smoking Status: Current every day smoker Tobacco Type: Cigarettes Preferred Language: Upper Sorbian Feels Safe at Home: Yes Allergies Allergies Allergy/AdvReac Type Severity Reaction Status Date / Time No Known Allergies Allergy Verified 09/25/20 22:10 Home Meds Home Medications Medication Instructions Recorded Confirmed gabapentin 600 mg PO TID 05/06/19 09/25/20 zolpidem 10 mg PO HS 05/06/19 09/25/20 naproxen 500 mg PO BID PRN 07/25/20 09/25/20 alprazolam 0.5 mg PO BID PRN 09/25/20 09/25/20 buspirone 10 mg PO TID 09/25/20 09/25/20 Results & Data (ED) Vital Signs Vital Signs - 24 hr 09/25/20 20:40 09/25/20 20:43 09/25/20 20:46 Temperature 37.0 C Temperature Source Oral Pulse Rate 89 100 H 99 H Pulse Rate [Right Finger] 101 H Pulse Rate from SpO2 Sensor 99 H 99 H Respiratory Rate 18 27 H 21 Respiratory Depth Normal Blood Pressure 121/94 121/94 Blood Pressure [Right Arm] 121/94 Blood Pressure Mean 103 103 Blood Pressure Mean [Right Arm] 103 Pulse Oximetry 99 99 100 Oxygen Delivery Method Room Air Sepsis Recent Fever Within 48 Hours No Sepsis New/Unexplained Change in Mental Status No Sepsis Action Taken by Nursing No Action Required 09/25/20 20:50 09/25/20 21:00 09/25/20 21:10 Temperature Temperature Source Pulse Rate 87 90 86 Pulse Rate [Right Finger] Pulse Rate from SpO2 Sensor 87 89 87 Respiratory Rate 21 11 L 13 Respiratory Depth Blood Pressure 140/109 H Blood Pressure [Right Arm] Blood Pressure Mean 119 Blood Pressure Mean [Right Arm] Pulse Oximetry 100 98 98 Oxygen Delivery Method Sepsis Recent Fever Within 48 Hours Sepsis New/Unexplained Change in Mental Status Sepsis Action Taken by Nursing 09/25/20 21:20 09/25/20 21:30 09/25/20 21:31 Temperature Temperature Source Pulse Rate 86 89 94 H Pulse Rate [Right Finger] Pulse Rate from SpO2 Sensor 85 90 91 H Respiratory Rate 16 16 29 H Respiratory Depth Blood Pressure 137/98 Blood Pressure [Right Arm] Blood Pressure Mean 111 Blood Pressure Mean [Right Arm] Pulse Oximetry 98 100 97 Oxygen Delivery Method Sepsis Recent Fever Within 48 Hours Sepsis New/Unexplained Change in Mental Status Sepsis Action Taken by Nursing 09/25/20 21:40 09/25/20 21:50 09/25/20 22:00 Temperature Temperature Source Pulse Rate 79 76 83 Pulse Rate [Right Finger] Pulse Rate from SpO2 Sensor 79 77 85 Respiratory Rate 14 13 15 Respiratory Depth Blood Pressure 126/91 Blood Pressure [Right Arm] Blood Pressure Mean 102 Blood Pressure Mean [Right Arm] Pulse Oximetry 97 97 96 Oxygen Delivery Method Sepsis Recent Fever Within 48 Hours Sepsis New/Unexplained Change in Mental Status Sepsis Action Taken by Nursing 09/25/20 22:01 09/25/20 22:10 09/25/20 22:20 Temperature Temperature Source Pulse Rate 81 80 80 Pulse Rate [Right Finger] Pulse Rate from SpO2 Sensor 81 81 80 Respiratory Rate 13 14 13 Respiratory Depth Blood Pressure Blood Pressure [Right Arm] Blood Pressure Mean Blood Pressure Mean [Right Arm] Pulse Oximetry 96 96 95 Oxygen Delivery Method Sepsis Recent Fever Within 48 Hours Sepsis New/Unexplained Change in Mental Status Sepsis Action Taken by Nursing 09/25/20 22:30 09/25/20 22:31 09/25/20 23:09 Temperature Temperature Source Pulse Rate 76 80 76 Pulse Rate [Right Finger] Pulse Rate from SpO2 Sensor 77 79 77 Respiratory Rate 13 14 14 Respiratory Depth Blood Pressure 119/80 123/78 Blood Pressure [Right Arm] Blood Pressure Mean 93 93 Blood Pressure Mean [Right Arm] Pulse Oximetry 96 96 96 Oxygen Delivery Method Sepsis Recent Fever Within 48 Hours Sepsis New/Unexplained Change in Mental Status Sepsis Action Taken by Nursing 09/25/20 23:15 09/26/20 00:00 09/26/20 00:01 Temperature Temperature Source Pulse Rate 75 72 72 Pulse Rate [Right Finger] Pulse Rate from SpO2 Sensor 76 72 72 Respiratory Rate 14 13 13 Respiratory Depth Blood Pressure 116/80 Blood Pressure [Right Arm] Blood Pressure Mean 92 Blood Pressure Mean [Right Arm] Pulse Oximetry 96 96 96 Oxygen Delivery Method Sepsis Recent Fever Within 48 Hours Sepsis New/Unexplained Change in Mental Status Sepsis Action Taken by Nursing 09/26/20 01:00 09/26/20 02:30 09/26/20 03:30 Temperature Temperature Source Pulse Rate 74 64 59 L Pulse Rate [Right Finger] Pulse Rate from SpO2 Sensor 74 63 59 L Respiratory Rate 15 18 13 Respiratory Depth Blood Pressure Blood Pressure [Right Arm] Blood Pressure Mean Blood Pressure Mean [Right Arm] Pulse Oximetry 97 96 95 Oxygen Delivery Method Room Air Room Air Sepsis Recent Fever Within 48 Hours Sepsis New/Unexplained Change in Mental Status Sepsis Action Taken by Nursing 09/26/20 03:58 09/26/20 03:59 09/26/20 04:00 Temperature Temperature Source Pulse Rate 65 69 67 Pulse Rate [Right Finger] Pulse Rate from SpO2 Sensor 65 68 68 Respiratory Rate 14 12 15 Respiratory Depth Blood Pressure 116/66 93/65 L Blood Pressure [Right Arm] Blood Pressure Mean 82 74 Blood Pressure Mean [Right Arm] Pulse Oximetry 97 96 97 Oxygen Delivery Method Room Air Room Air Room Air Sepsis Recent Fever Within 48 Hours Sepsis New/Unexplained Change in Mental Status Sepsis Action Taken by Nursing 09/26/20 04:30 09/26/20 05:00 09/26/20 05:01 Temperature Temperature Source Pulse Rate 70 95 H 57 L Pulse Rate [Right Finger] Pulse Rate from SpO2 Sensor 70 89 59 L Respiratory Rate 12 13 16 Respiratory Depth Blood Pressure 93/53 L Blood Pressure [Right Arm] Blood Pressure Mean 66 Blood Pressure Mean [Right Arm] Pulse Oximetry 96 98 94 Oxygen Delivery Method Room Air Room Air Room Air Sepsis Recent Fever Within 48 Hours Sepsis New/Unexplained Change in Mental Status Sepsis Action Taken by Nursing 09/26/20 05:30 09/26/20 06:01 09/26/20 06:03 Temperature Temperature Source Pulse Rate 63 66 66 Pulse Rate [Right Finger] Pulse Rate from SpO2 Sensor 63 68 Respiratory Rate 12 12 14 Respiratory Depth Blood Pressure 112/84 Blood Pressure [Right Arm] Blood Pressure Mean 93 Blood Pressure Mean [Right Arm] Pulse Oximetry 95 92 93 Oxygen Delivery Method Room Air Room Air Room Air Sepsis Recent Fever Within 48 Hours Sepsis New/Unexplained Change in Mental Status Sepsis Action Taken by Nursing 09/26/20 09:22 Temperature Temperature Source Pulse Rate 98 H Pulse Rate [Right Finger] Pulse Rate from SpO2 Sensor Respiratory Rate 16 Respiratory Depth Blood Pressure 91/64 L Blood Pressure [Right Arm] Blood Pressure Mean 73 Blood Pressure Mean [Right Arm] Pulse Oximetry 100 Oxygen Delivery Method Room Air Sepsis Recent Fever Within 48 Hours Sepsis New/Unexplained Change in Mental Status Sepsis Action Taken by Nursing Laboratory Data Result diagrams: 09/25/20 20:13 09/25/20 20:13 Lab Results 09/25/20 09/25/20 09/25/20 Range/Units 20:13 20:13 20:13 WBC 8.21 (4.8-10.8) K/uL RBC 5.20 (4.2-5.4) M/uL Hgb 15.6 (12.0-16.0) g/dL Hct 46.3 (37-47) % MCV 89.0 (80-100) fL MCH 30.0 (25-34) pg MCHC 33.7 (32-36) g/dL RDW Std Deviation 45.4 (36.4-46.3) fL RDW Coeff of Tono 13.8 (11.5-14.5) % Plt Count 327 (130-400) K/uL MPV 11.3 H (7.4-10.4) fL Immature Gran % (Auto) 0.1 % Neut % (Auto) 57.7 % Lymph % (Auto) 32.5 % [place] % (Auto) 6.5 % Eos % (Auto) 3.0 % Baso % (Auto) 0.2 % Neut # (Auto) 4.73 (1.4-6.5) K/uL Lymph # (Auto) 2.67 (1.2-3.4) K/uL [place] # (Auto) 0.53 (0.11-0.59) K/uL Eos # (Auto) 0.25 (0-0.5) K/uL Baso # (Auto) 0.02 (0-0.2) K/uL Immature Gran # (Auto) 0.01 (0.00-0.02) K/uL Sodium 142 (136-145) mmol/L Potassium 3.4 L (3.5-5.1) mmol/L Chloride 107 (98-107) mmol/L Carbon Dioxide 31 (21-32) mmol/L Anion Gap 4.0 (3-11) BUN 12 (7-18) mg/dl Creatinine 0.97 (0.6-1.2) mg/dl Est Cr Clr Drug Dosing 103.2 ml/min Est GFR ( Amer) 84.7 ml/min Est GFR (Non-Af Amer) 73.1 ml/min BUN/Creatinine Ratio 12.7 (10-20) Glucose 85 (70-99) mg/dl Calcium 9.7 (8.5-10.1) mg/dl Total Bilirubin 0.5 (0.2-1) mg/dl AST 19 (15-37) U/L ALT 28 (12-78) U/L Alkaline Phosphatase 96 (45-117) U/L Total Protein 8.6 H (6.4-8.2) gm/dl Albumin 4.6 (3.4-5.0) gm/dl Globulin 4.0 (2.5-4.0) gm/dl Albumin/Globulin Ratio 1.2 (0.9-2) TSH 4.650 H (0.300-4.500) uIu/ml Urine Color Urine Appearance (Clear) Urine pH (4.5-7.5) Ur Specific [place] (1.000-1.030) Urine Protein (Negative) Urine Glucose (UA) (Negative) Urine Ketones (Negative) Urine Blood (Negative) Urine Nitrite (Negative) Urine Bilirubin (Negative) Urine Urobilinogen (Negative) Ur Leukocyte Esterase (Negative) Salicylates 3.1 (2.8-20) mg/dl Urine Opiates Screen (Neg) Ur Methadone, Qual (Neg) Acetaminophen < 2 L (10-30) ug/ml Urine Barbiturates (Neg) Ur Phencyclidine (PCP) (Neg) U Amphetamin/Meth Scrn (Neg) MDMA (Ecstasy) Screen (Neg) U Benzodiazepines Scrn (Neg) Ur Cocaine Metabolite (Neg) U Marijuana (THC) Screen (Neg) Ethyl Alcohol mg/dL (0-3) mg/dl COVID-19 Eval Order SARS-CoV-2 (PCR) (Negative) 09/25/20 09/25/20 09/26/20 Range/Units 20:56 21:27 06:07 WBC (4.8-10.8) K/uL RBC (4.2-5.4) M/uL Hgb (12.0-16.0) g/dL Hct (37-47) % MCV (80-100) fL MCH (25-34) pg MCHC (32-36) g/dL RDW Std Deviation (36.4-46.3) fL RDW Coeff of Tono (11.5-14.5) % Plt Count (130-400) K/uL MPV (7.4-10.4) fL Immature Gran % (Auto) % Neut % (Auto) % Lymph % (Auto) % [place] % (Auto) % Eos % (Auto) % Baso % (Auto) % Neut # (Auto) (1.4-6.5) K/uL Lymph # (Auto) (1.2-3.4) K/uL [place] # (Auto) (0.11-0.59) K/uL Eos # (Auto) (0-0.5) K/uL Baso # (Auto) (0-0.2) K/uL Immature Gran # (Auto) (0.00-0.02) K/uL Sodium (136-145) mmol/L Potassium (3.5-5.1) mmol/L Chloride (98-107) mmol/L Carbon Dioxide (21-32) mmol/L Anion Gap (3-11) BUN (7-18) mg/dl Creatinine (0.6-1.2) mg/dl Est Cr Clr Drug Dosing ml/min Est GFR ( Amer) ml/min Est GFR (Non-Af Amer) ml/min BUN/Creatinine Ratio (10-20) Glucose (70-99) mg/dl Calcium (8.5-10.1) mg/dl Total Bilirubin (0.2-1) mg/dl AST (15-37) U/L ALT (12-78) U/L Alkaline Phosphatase (45-117) U/L Total Protein (6.4-8.2) gm/dl Albumin (3.4-5.0) gm/dl Globulin (2.5-4.0) gm/dl Albumin/Globulin Ratio (0.9-2) TSH Cancelled (0.300-4.500) uIu/ml Urine Color Yellow Urine Appearance Clear (Clear) Urine pH 6.5 (4.5-7.5) Ur Specific [place] 1.021 (1.000-1.030) Urine Protein Negative (Negative) Urine Glucose (UA) Negative (Negative) Urine Ketones Negative (Negative) Urine Blood Negative (Negative) Urine Nitrite Negative (Negative) Urine Bilirubin Negative (Negative) Urine Urobilinogen Negative (Negative) Ur Leukocyte Esterase Negative (Negative) Salicylates (2.8-20) mg/dl Urine Opiates Screen (Neg) Ur Methadone, Qual (Neg) Acetaminophen (10-30) ug/ml Urine Barbiturates (Neg) Ur Phencyclidine (PCP) (Neg) U Amphetamin/Meth Scrn (Neg) MDMA (Ecstasy) Screen (Neg) U Benzodiazepines Scrn (Neg) Ur Cocaine Metabolite (Neg) U Marijuana (THC) Screen (Neg) Ethyl Alcohol mg/dL < 3.0 (0-3) mg/dl COVID-19 Eval Order SARS-CoV-2 (PCR) (Negative) 09/26/20 09/26/20 09/26/20 Range/Units 06:07 10:20 10:20 WBC (4.8-10.8) K/uL RBC (4.2-5.4) M/uL Hgb (12.0-16.0) g/dL Hct (37-47) % MCV (80-100) fL MCH (25-34) pg MCHC (32-36) g/dL RDW Std Deviation (36.4-46.3) fL RDW Coeff of Tono (11.5-14.5) % Plt Count (130-400) K/uL MPV (7.4-10.4) fL Immature Gran % (Auto) % Neut % (Auto) % Lymph % (Auto) % [place] % (Auto) % Eos % (Auto) % Baso % (Auto) % Neut # (Auto) (1.4-6.5) K/uL Lymph # (Auto) (1.2-3.4) K/uL [place] # (Auto) (0.11-0.59) K/uL Eos # (Auto) (0-0.5) K/uL Baso # (Auto) (0-0.2) K/uL Immature Gran # (Auto) (0.00-0.02) K/uL Sodium (136-145) mmol/L Potassium (3.5-5.1) mmol/L Chloride (98-107) mmol/L Carbon Dioxide (21-32) mmol/L Anion Gap (3-11) BUN (7-18) mg/dl Creatinine (0.6-1.2) mg/dl Est Cr Clr Drug Dosing ml/min Est GFR ( Amer) ml/min Est GFR (Non-Af Amer) ml/min BUN/Creatinine Ratio (10-20) Glucose (70-99) mg/dl Calcium (8.5-10.1) mg/dl Total Bilirubin (0.2-1) mg/dl AST (15-37) U/L ALT (12-78) U/L Alkaline Phosphatase (45-117) U/L Total Protein (6.4-8.2) gm/dl Albumin (3.4-5.0) gm/dl Globulin (2.5-4.0) gm/dl Albumin/Globulin Ratio (0.9-2) TSH (0.300-4.500) uIu/ml Urine Color Urine Appearance (Clear) Urine pH (4.5-7.5) Ur Specific [place] (1.000-1.030) Urine Protein (Negative) Urine Glucose (UA) (Negative) Urine Ketones (Negative) Urine Blood (Negative) Urine Nitrite (Negative) Urine Bilirubin (Negative) Urine Urobilinogen (Negative) Ur Leukocyte Esterase (Negative) Salicylates (2.8-20) mg/dl Urine Opiates Screen Neg (Neg) Ur Methadone, Qual Neg (Neg) Acetaminophen (10-30) ug/ml Urine Barbiturates Neg (Neg) Ur Phencyclidine (PCP) Neg (Neg) U Amphetamin/Meth Scrn Pos H (Neg) MDMA (Ecstasy) Screen Pos H (Neg) U Benzodiazepines Scrn Neg (Neg) Ur Cocaine Metabolite Neg (Neg) U Marijuana (THC) Screen Pos H (Neg) Ethyl Alcohol mg/dL (0-3) mg/dl COVID-19 Eval Order Covid19 at [facility] SARS-CoV-2 (PCR) NEGATIVE (Negative) Administered Medications Alprazolam (Alprazolam 0.5 Mg Tablet) 0.5 mg PO BID PRN PRN Reason: Anxiety Stop: 10/26/20 07:53 Last Admin: 09/26/20 09:18 Dose: 0.5 mg Documented by: [id number] Gabapentin (Gabapentin 600 Mg Tab) 600 mg PO TID AMI Stop: 10/26/20 08:59 Last Admin: 09/26/20 17:02 Dose: 600 mg Documented by: [id number] Admin: 09/26/20 09:18 Dose: 600 mg Documented by: [id number] Hydroxyzine HCl (Hydroxyzine Hcl 25 Mg Tab) 25 mg PO Q4H PRN PRN Reason: Anxiety Stop: 10/26/20 12:09 Last Admin: 09/26/20 17:41 Dose: 25 mg Documented by: [id number] Lurasidone HCl (Lurasidone Hcl 40 Mg Tab) 20 mg PO BIDM AMI Stop: 10/26/20 17:44 Last Admin: 09/26/20 17:43 Dose: 20 mg Documented by: [id number] Discontinued Medications Buspirone HCl (Buspirone 5 Mg Tab) 10 mg PO TID AMI Stop: 10/26/20 08:59 Last Admin: 09/26/20 10:31 Dose: 10 mg Documented by: [id number] Nicotine (Nicotine 14 Mg/24 Hr Patch) 14 mg TD NOW STA Stop: 09/26/20 11:08 Last Admin: 09/26/20 12:00 Dose: 14 mg Documented by: [id number] Discharge Plan Visit Data Chief Complaint: Overdose (Intentional) Stated Complaint: overdose ED Provider: Ladi Savage Discharge Problem: Overdose Patient Disposition: Admitted As Inpatient Discharge Instructions Interventions: ED Discharge Assessment Last Done: 09/26/20 13:07 Discharge Problem: Overdose Qualifiers: Encounter type: initial encounter Injury intent: intentional self-harm Qualified Code(s): T50.902A - Poisoning by unspecified drugs, medicaments and biological substances, intentional self-harm, initial encounter
[2020-09-25 21:53] LABS: Salicylate 3.1 mg/dl (2.8-20)
--- NOTE | 2020-09-26 02:09 | Emergency Department Note ---
ED Visit Note ED Physician Sign Out Note: 39 yr old female with history of depression.suicide attempts who arrives for evaluation of overdose Ambien 24 hours ago as well as using meth/heroin over the last few days. 302 has been petitioned and she is medically clear by Dr Barreto and awaiting mental health evaluation. Signed out to me pending placement. Patient awoke around 6am. Denies making statements about wanting to but admits she may have made them after taking Ambien. Admits to taking 8 tablets of Ambien, but that this is not unusual for her nor was it an attempt to kill herself. States she was stressed from her grandfather dieing and that she was going to see her son today where he is in juvenile half-way. Still awaiting drug screen and case management mental health evaluation. I noted to her there is a 302 petition keeping her in ED as it there is concerns for her wellbeing. She is willing to further discussed with case management. Shortly after this she demanded to leave, grabbed her clothes and started dressing. Case Management called crisis who verbalized 302 warrant and are en route. I made it clear that she must follow instructions as per legal requirements I can not discharge her without full mental health evaluation. Signed out to Dr Savage pending psych eval. Morris Acuna MD : Overdose Qualifiers: Encounter type: initial encounter Injury intent: intentional self-harm Qualified Code(s): T50.902A - Poisoning by unspecified drugs, medicaments and biological substances, intentional self-harm, initial encounter
[2020-09-26 06:18] LABS: Appearance Urine Clear (Clear); Bilirubin Urine Negative (Negative); Blood Urine Negative (Negative); Color Urine Yellow; Glucose Urine UA Negative (Negative); Ketones Urine Negative (Negative); Leukocyte Esterase Urine Negative (Negative); Nitrite Urine Negative (Negative); Protein Urine Negative (Negative); Specific Gravity Urine 1.021 (1.000-1.030); Urobilinogen Urine Negative (Negative); pH Urine 6.5 (4.5-7.5)
[2020-09-26 06:57] LABS: Amphetamines+Metham, Urine Pos (Neg); Barbiturates, Urine Neg (Neg); Benzodiazepine, Urine Neg (Neg); Cocaine, Urine Neg (Neg); MDMA (Ecstacy), Urine Pos (Neg); Methadone, Urine Neg (Neg); Opiate, Urine Neg (Neg); Phencyclidine, Urine Neg (Neg)
[2020-09-26] MEDS ORDERED: NAPROXEN 250 MG TAB PO PRN (07:54)
[2020-09-26] MEDS ORDERED: busPIRone 5 MG TAB PO SCH (09:00)
[2020-09-26] MEDS: ALPRAZolam 0.5 MG TABLET PO PRN ×2 (09:18→21:49)
[2020-09-26] MEDS: GABAPENTIN 600 MG TAB PO SCH ×3 (09:18→21:49)
[2020-09-26] MEDS ORDERED: NICOTINE 14 MG/24 HR PATCH TD STA (11:07)
[2020-09-26] MEDS ORDERED: ACETAMINOPHEN 325 MG TAB PO PRN (12:10)
[2020-09-26] MEDS ORDERED: hydrOXYzine HCl 25 MG TAB PO PRN ×2 (12:10)
[2020-09-26] MEDS ORDERED: ALUMINUM/MAGNESIUM SUSP 30 ML UDC PO PRN (12:10)
[2020-09-26] MEDS ORDERED: MAGNESIUM HYDROXIDE SUSP 30 ML UDC PO PRN (12:10)
[2020-09-26] MEDS ORDERED: SODIUM CHLORIDE 0.65% NA SOLN 45 ML (OCEAN) PRN (12:10)
[2020-09-26] MEDS ORDERED: BISMUTH SUBSALICYLATE LIQD 236 ML PO PRN (12:10)
--- NOTE | 2020-09-26 13:21 | Emergency Department Note ---
ED Visit Note I received this patient in signout at the change of shift from Dr. Acuna, pending evaluation by the mental health delegate for a 302 petition. The patient had overdosed on Ambien in an attempt at self-harm/suicide. She was not cooperative with plans for voluntary treatment. Patient was signed in on a 302 and accepted to [facility] for inpatient mental health treatment. She was given a nicotine patch while she was in our department under my care. Please refer to previous documentation for further details of the history, physical and visit. . : Overdose Qualifiers: Encounter type: initial encounter Injury intent: intentional self-harm Qualified Code(s): T50.902A - Poisoning by unspecified drugs, medicaments and biological substances, intentional self-harm, initial encounter
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
[2020-09-26] MEDS: LURASIDONE HCL 40 MG TAB PO SCH (17:43)
[2020-09-26] MEDS ORDERED: ZOLPIDEM TARTRATE 10 MG TAB PO SCH (21:00)
--- NOTE | 2020-09-26 22:38 | Electrocardiogram Report ---
Test Reason : Blood Pressure : / mmHG Vent. Rate : 091 BPM Atrial Rate : 091 BPM P-R Int : 136 ms QRS Dur : 092 ms QT Int : 376 ms P-R-T Axes : 057 056 034 degrees QTc Int : 462 ms Normal sinus rhythm Normal ECG When compared with ECG of 25-JUL-2020 12:41, No significant change was found Confirmed by Tyler Cee ([id number]) on 09/26/2020 10:38:16 PM Referred By: REFERRED SELF Confirmed By:Tyler Cee
[2020-09-27] MEDS ORDERED: NICOTINE 21 MG/24 HR TDSY TD SCH (09:00)
[2020-09-27] MEDS: LURASIDONE HCL 40 MG TAB PO SCH (09:06)
[2020-09-27] MEDS: GABAPENTIN 600 MG TAB PO SCH (09:06)
[2020-09-27] MEDS: ALPRAZolam 0.5 MG TABLET PO PRN (09:14)
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
[2020-10-01 17:12] LABS: Amphetamine Urine, Confirm 3560 ng/mL (<250); MDA negative; MDEA negative; MDMA (Ecstasy) Urine, Confirm negative; Marijuana Quant, GCMS Urine 3070 ng/mL (<5); Methamphetamine, Ur Confirm 11800 ng/mL (<250)
== END 2020-09-27 11:21 | disposition home or self-care (01) | DRG 885 ==
LOC: ED 20:37 → 3S 09-26 12:10

== ENCOUNTER 2020-10-20 15:50 | Observation (INO) ==
[2020-10-20] MEDS ORDERED: ONDANSETRON INJ 2 MG/ML 2 ML VIAL IV STA (15:57)
[2020-10-20] MEDS ORDERED: SODIUM CHLORIDE 0.9% 1000ML 1,000 ML IV SCH (16:00)
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
[2020-10-20 16:25] LABS: Basophils # (auto) 0.01 K/uL (0-0.2); Basophils % (auto) 0.1 %; Eosinophils # (auto) 0.19 K/uL (0-0.5); Eosinophils % (auto) 2.1 %; Hematocrit (blood only) 41.6 % (37-47); Hemoglobin 14.2 g/dL (12.0-16.0); Immature Granulocytes # (auto) 0.01 K/uL (0.00-0.02); Immature Granulocytes % (auto) 0.1 %; Lymphocytes # (auto) 2.06 K/uL (1.2-3.4); Lymphocytes % (auto) 22.6 %; Mean Corpuscular Hemoglobin 30.4 pg (25-34); Mean Corpuscular Hgb Conc 34.1 g/dL (32-36); Mean Corpuscular Volume 89.1 fL (80-100); Mean Platelet Volume 11.6 fL (7.4-10.4); Monocytes # (auto) 0.69 K/uL (0.11-0.59); Monocytes % (auto) 7.6 %; Neutrophils # (auto) 6.17 K/uL (1.4-6.5); Neutrophils % (auto) 67.5 %; Platelet Count 270 K/uL (130-400); RDW Coefficient of Variation 14.1 % (11.5-14.5); RDW Standard Deviation 46.4 fL (36.4-46.3); Red Blood Count 4.67 M/uL (4.2-5.4); White Blood Count 9.13 K/uL (4.8-10.8)
[2020-10-20 16:34] LABS: Oxygen Saturation VBG 62.8 %; pH VBG 7.34 (7.36-7.41)
[2020-10-20 16:42] LABS: Alanine Aminotransferase 21 U/L (12-78); Albumin Level 4.5 gm/dl (3.4-5.0); Aspartate Aminotransferase 23 U/L (15-37); BUN Creatinine Ratio 16.8 (10-20); Blood Urea Nitrogen 16 mg/dl (7-18); Calcium 8.7 mg/dl (8.5-10.1); Carbon Dioxide 26 mmol/L (21-32); Chloride 107 mmol/L (98-107); Est GFR (African American) 89.1 ml/min; Est GFR (Non-African American) 76.9 ml/min; Glucose 112 mg/dl (70-99); Lipase 139 U/L (73-393); Magnesium 2.3 mg/dl (1.8-2.4); Potassium 3.6 mmol/L (3.5-5.1); Sodium 141 mmol/L (136-145)
[2020-10-20 16:44] LABS: Acetaminophen < 2 ug/ml (10-30); Salicylate 2.7 mg/dl (2.8-20)
[2020-10-20 16:48] LABS: Albumin Globulin Ratio 1.9 (0.9-2); Alkaline Phosphatase 76 U/L (45-117); Bilirubin,Total 1.1 mg/dl (0.2-1); Creatine Kinase 203 U/L (26-192); Globulin 2.4 gm/dl (2.5-4.0); Total Protein 6.9 gm/dl (6.4-8.2); Troponin I < 0.015 ng/ml (0-0.045)
--- NOTE | 2020-10-20 16:55 | XRay Report ---
XR chest 1V portable CLINICAL HISTORY: OD COMPARISON STUDY: Chest radiograph July 25, 2020. FINDINGS: Lung volumes are normal. Lungs are clear. There is no pneumothorax or pleural effusion. Car diac size is normal. Mediastinal contours are normal. There is no evidence for pulmonary edema. Right clavicular internal fixation is incidentally noted. IMPRESSION: No acute cardiopulmonary findings. ACT 112: Negative or not required by law. Electronically signed by: Andrea Scott M.D. 10/20/2020 4:53 PM
[2020-10-20 20:21] LABS: Appearance Urine Clear (Clear); Bilirubin Urine Negative (Negative); Blood Urine Negative (Negative); Color Urine Yellow; Glucose Urine UA Negative (Negative); Ketones Urine Negative (Negative); Leukocyte Esterase Urine Negative (Negative); Nitrite Urine Negative (Negative); Protein Urine Negative (Negative); Specific Gravity Urine 1.019 (1.000-1.030); Urobilinogen Urine Negative (Negative)
[2020-10-20 20:38] LABS: Amphetamines+Metham, Urine Pos (Neg); Barbiturates, Urine Neg (Neg); Benzodiazepine, Urine Neg (Neg); Cocaine, Urine Neg (Neg); MDMA (Ecstacy), Urine Pos (Neg); Methadone, Urine Neg (Neg); Opiate, Urine Neg (Neg); Phencyclidine, Urine Neg (Neg)
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
[2020-10-21] MEDS ORDERED: NICOTINE 21 MG/24 HR TDSY TD STA (00:54)
[2020-10-21] MEDS ORDERED: ACETAMINOPHEN 325 MG TAB PO PRN ×2 (03:13)
[2020-10-21] MEDS ORDERED: PROMETHAZINE HCL 12.5 MG in SODIUM CHLORIDE 0.9% 50 ML IV PRN (03:13)
[2020-10-21] MEDS ORDERED: LACTATED RINGER'S 1,000 ML IV ONE (03:13)
[2020-10-21] MEDS: ENOXAPARIN INJ 40 MG/0.4 ML SYR SQ SCH (07:57)
[2020-10-21] MEDS: NICOTINE 21 MG/24 HR TDSY TD SCH (07:57)
[2020-10-21 08:14] LABS: Basophils # (auto) 0.01 K/uL (0-0.2); Basophils % (auto) 0.1 %; Eosinophils # (auto) 0.15 K/uL (0-0.5); Eosinophils % (auto) 2.1 %; Hemoglobin 12.8 g/dL (12.0-16.0); Immature Granulocytes # (auto) 0.02 K/uL (0.00-0.02); Immature Granulocytes % (auto) 0.3 %; Lymphocytes # (auto) 1.97 K/uL (1.2-3.4); Lymphocytes % (auto) 27.9 %; Mean Corpuscular Hemoglobin 29.3 pg (25-34); Mean Corpuscular Hgb Conc 32.8 g/dL (32-36); Mean Corpuscular Volume 89.2 fL (80-100); Mean Platelet Volume 11.4 fL (7.4-10.4); Monocytes # (auto) 1.03 K/uL (0.11-0.59); Monocytes % (auto) 14.6 %; Neutrophils # (auto) 3.89 K/uL (1.4-6.5); Platelet Count 231 K/uL (130-400); RDW Coefficient of Variation 14.7 % (11.5-14.5); RDW Standard Deviation 47.8 fL (36.4-46.3); Red Blood Count 4.37 M/uL (4.2-5.4); White Blood Count 7.07 K/uL (4.8-10.8)
[2020-10-21 08:38] LABS: BUN Creatinine Ratio 14.6 (10-20); Calcium 8.4 mg/dl (8.5-10.1); Creatinine Clr Calc Pharmacy 104.5 ml/min; Est GFR (African American) 95.3 ml/min; Est GFR (Non-African American) 82.2 ml/min; Potassium 3.6 mmol/L (3.5-5.1)
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
--- NOTE | 2020-10-21 15:26 | Hospitalist Progress Note ---
Date of Service October 21, 2020 Assessment & Plan (1) Lethargy: Drug Overdose Suicidal Attempt CXR:No acute cardiopulmonary findings. Vitals Stable Received IV fluids Appreciate Psychiatry Input Mood Disorder H/O Multiple admissions Home meds on hold to due above Psychiatry on board Tobacco use disorder Drug use Toxicology Screen: Marijuana Nicotine patch [employer] to quit H/O HCV S/P treatment DVT Px: Lovenox SQ Code Status Full code Admission and Anticipated Discharge Date Admission Date: October 21, 2020 Subjective Patient is seen and examined at bedside Very drowsy this morning during my encounter Offers no complaints Denies chest pain, shortness of breath, dizziness, nausea, abdominal pain Sitter at bedside Review of Systems Review of Systems: All systems reviewed & are unremarkable except as noted in HPI & below Physical Exam Physical Exam: Physical Exam: Vitals signs as noted above General Appearance:Morbidly Obese, no apparent distress Head: normocephalic, Atraumatic Eyes: normal inspection, EOMI Neck: supple, Trachea midline Respiratory/Chest: Normal breath sounds, CTA Cardiovascular: S1, S2, No murmur Abdomen/GI:Soft, Non tender, Bowel sounds present Extremities/Musculoskeletal:normal inspection, no edema Neurologic/Psych:AAOX3, grossly no focal neurological deficits Skin: normal color, warm Results & Data Results & Data ([facility]) Vital Signs (Past 12 Hours) Vital Signs Temp Pulse Pulse Resp BP Pulse Ox 10/21/20 15:04 90 10/21/20 07:48 36.7 C 80 19 112/74 98 10/21/20 07:26 79 10/21/20 06:13 66 10/21/20 05:10 36.5 C 78 20 111/73 95 10/21/20 03:42 36.5 C 78 20 111/73 95 Laboratory Results Short CBC 10/20/20 10/21/20 Range/Units 16:06 07:40 WBC 9.13 7.07 (4.8-10.8) K/uL Hgb 14.2 12.8 (12.0-16.0) g/dL Hct 41.6 39.0 (37-47) % Plt Count 270 231 (130-400) K/uL BMP 10/20/20 10/21/20 16:06 07:40 Sodium 141 142 Potassium 3.6 3.6 Chloride 107 110 H Carbon Dioxide 26 27 BUN 16 13 Creatinine 0.93 0.88 Glucose 112 H 102 H Calcium 8.7 8.4 L Cardiac Enzymes 10/20/20 10/21/20 Range/Units 16:06 07:40 Total Creatine Kinase 203 H 114 (26-192) U/L Troponin I < 0.015 (0-0.045) ng/ml Liver Function 10/20/20 Range/Units 16:06 Total Bilirubin 1.1 H (0.2-1) mg/dl AST 23 (15-37) U/L ALT 21 (12-78) U/L Alkaline Phosphatase 76 (45-117) U/L Albumin 4.5 (3.4-5.0) gm/dl Urine 10/20/20 Range/Units 20:00 Urine Color Yellow Urine Appearance Clear (Clear) Urine pH 5.0 (4.5-7.5) Ur Specific [place] 1.019 (1.000-1.030) Urine Protein Negative (Negative) Urine Glucose (UA) Negative (Negative)
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
--- NOTE | 2020-10-21 16:22 | Electrocardiogram Report ---
Test Reason : Blood Pressure : / mmHG Vent. Rate : 101 BPM Atrial Rate : 101 BPM P-R Int : 126 ms QRS Dur : 090 ms QT Int : 352 ms P-R-T Axes : 067 056 040 degrees QTc Int : 456 ms Sinus tachycardia Otherwise normal ECG When compared with ECG of 25-SEP-2020 20:56, No significant change was found Confirmed by Tyler Cee ([id number]) on 10/21/2020 4:21:59 PM Referred By: REFERRED SELF Confirmed By:Tyler Cee
[2020-10-21] MEDS: MAGNESIUM HYDROXIDE SUSP 30 ML UDC PO PRN (16:29)
[2020-10-22] MEDS: MAGNESIUM HYDROXIDE SUSP 30 ML UDC PO PRN (04:32)
[2020-10-22 08:46] LABS: Hematocrit (blood only) 39.6 % (37-47); Hemoglobin 13.2 g/dL (12.0-16.0); Mean Corpuscular Hemoglobin 29.8 pg (25-34); Mean Corpuscular Hgb Conc 33.3 g/dL (32-36); Mean Corpuscular Volume 89.4 fL (80-100); Mean Platelet Volume 11.7 fL (7.4-10.4); Platelet Count 237 K/uL (130-400); RDW Coefficient of Variation 14.7 % (11.5-14.5); RDW Standard Deviation 48.4 fL (36.4-46.3); Red Blood Count 4.43 M/uL (4.2-5.4); White Blood Count 12.27 K/uL (4.8-10.8)
[2020-10-22] MEDS: NICOTINE 21 MG/24 HR TDSY TD SCH (09:09)
[2020-10-22] MEDS: ENOXAPARIN INJ 40 MG/0.4 ML SYR SQ SCH (09:10)
[2020-10-22 09:14] LABS: BUN Creatinine Ratio 14.3 (10-20); Calcium 8.9 mg/dl (8.5-10.1); Creatinine Clr Calc Pharmacy 115.3 ml/min; Est GFR (African American) 106.9 ml/min; Est GFR (Non-African American) 92.2 ml/min; Magnesium 2.8 mg/dl (1.8-2.4); Potassium 4.3 mmol/L (3.5-5.1)
--- NOTE | 2020-10-22 10:36 | Communication Note ---
Date of Service: October 22, 2020 Seen by nurse Liaison this morning Ok to re- start Latuda at 40mg qam with meals or snacks only and Trazodone 100mg for sleep, Would hold benzodiazepines, given recent overdose Could consider Hydroxyzine 50mg PO Q6 PRN anxiety if ok with Hospitalist given sedation. Patient agreeable to sign 201 to psych. Inform Psych once medically cleared we will continue to round with you.
--- NOTE | 2020-10-22 12:13 | Hospitalist Progress Note ---
Date of Service October 22, 2020 Assessment & Plan (1) Lethargy: Drug Overdose Suicidal Attempt CXR:No acute cardiopulmonary findings. 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 H/O HCV S/P treatment DVT Px: Lovenox SQ Code Status Full code Disposition Behavioral health unit Admission and Anticipated Discharge Date Admission Date: October 21, 2020 Subjective Patient is seen and examined at bedside States feeling anxious but otherwise denies any complaints Reports chronic constipation which is unchanged Denies chest pain, shortness of breath, dizziness, nausea, abdominal pain Discussed with Psychiatry today Review of Systems Review of Systems: All systems reviewed & are unremarkable except as noted in HPI & below Physical Exam Physical Exam: Physical Exam: Vitals signs as noted above General Appearance:Morbidly Obese, no apparent distress Head: normocephalic, Atraumatic Eyes: normal inspection, EOMI Neck: supple, Trachea midline Respiratory/Chest: Normal breath sounds, CTA Cardiovascular: S1, S2, No murmur Abdomen/GI:Soft, Non tender, Bowel sounds present Extremities/Musculoskeletal:normal inspection, no edema Neurologic/Psych:AAOX3, grossly no focal neurological deficits Skin: normal color, warm Results & Data Results & Data ([facility]) Vital Signs (Past 12 Hours) Vital Signs Temp Pulse Pulse Resp BP Pulse Ox 10/22/20 12:07 36.7 C 92 H 21 140/92 10/22/20 07:17 88 10/22/20 06:41 37 C 74 16 128/69 99 10/22/20 04:26 36.7 C 76 18 133/94 98 10/22/20 02:24 88 Laboratory Results Short CBC 10/22/20 Range/Units 08:07 WBC 12.27 H (4.8-10.8) K/uL Hgb 13.2 (12.0-16.0) g/dL Hct 39.6 (37-47) % Plt Count 237 (130-400) K/uL BMP 10/22/20 08:07 Sodium 142 Potassium 4.3 D Chloride 110 H Carbon Dioxide 27 BUN 11 Creatinine 0.80 Glucose 103 H Calcium 8.9
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
[2020-10-22] MEDS ORDERED: LURASIDONE HCL 40 MG TAB PO SCH (12:30)
[2020-10-22] MEDS ORDERED: bisacodyL 5 MG TABEC PO ONE (12:38)
[2020-10-22] MEDS ORDERED: DULoxetine HCL 30 MG CAP PO SCH (12:45)
[2020-10-23 18:06] LABS: Amphetamine Urine, Confirm 4050 ng/mL (<250); MDA negative; MDEA negative; MDMA (Ecstasy) Urine, Confirm negative; Marijuana Quant, GCMS Urine 41 ng/mL (<5); Methamphetamine, Ur Confirm 9610 ng/mL (<250)
== END 2020-10-22 14:30 ==
LOC: 2W 15:50 → ED 15:50 → 2W 10-21 02:31

== ENCOUNTER 2020-10-22 12:47 | Inpatient (IN) ==
[2020-10-22] MEDS ORDERED: MAGNESIUM HYDROXIDE SUSP 30 ML UDC PO PRN (13:02)
[2020-10-22] MEDS ORDERED: SODIUM CHLORIDE 0.65% NA SOLN 45 ML (OCEAN) PRN (13:02)
[2020-10-22] MEDS ORDERED: hydrOXYzine HCl 25 MG TAB PO PRN (13:02)
[2020-10-22] MEDS ORDERED: BISMUTH SUBSALICYLATE LIQD 236 ML PO PRN (13:02)
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
[2020-10-22] MEDS: ZOLPIDEM TARTRATE 10 MG TAB PO SCH (21:11)
[2020-10-22] MEDS ORDERED: traZODone HCL 100 MG TAB PO SCH (22:00)
[2020-10-23] MEDS: hydrOXYzine HCl 25 MG TAB PO PRN ×3 (03:35→16:29)
[2020-10-23] MEDS ORDERED: diazePAM 5 MG TABLET PO ONE (09:18)
[2020-10-23] MEDS ORDERED: ONDANSETRON 4 MG OD TAB PO STA (09:19)
[2020-10-23] MEDS: NICOTINE 21 MG/24 HR TDSY TD SCH (12:14)
[2020-10-23] MEDS: LURASIDONE HCL 40 MG TAB PO SCH (13:07)
[2020-10-23] MEDS: NICOTINE POLACRILEX 2 MG GUM MT PRN (13:07)
--- NOTE | 2020-10-23 20:09 | Psychiatric Progress Note ---
Date of Service October 23, 2020 Impression / Recommendations Impression 39-year-old with a history of substance abuse bipolar disorder unspecified admitted status post an overdose with ingestion of pills. Patient admitted in the context of this overdose as well as multiple psychosocial stressors which are ongoing and recurrent. Patient is status post an admission in September 2020 which was very brief. Patient while denying current suicidal ideation appears to present a similar affect that she presented in the last admission where she suddenly feels that she is doing much better despite a significant overdose, currently denying suicidal ideation however ongoing concerns regarding the actual suicide attempt and readmission to psychiatric current or psychiatric reasons within a month her current plan is to go to [place] on clear unless discussed with family how realistic this is. Patient continues have "flight into health" patient with very limited coping skills limited insight and not an effective plan for coping in the community given her recent stressors and a very short rehospitalization after discharge 3 weeks ago. (1) Unspecified episodic mood disorder: Admitted to [facility] . [facility] behavioral health unit will be on every 15 minute checks will be monitored for suicidal ideation will participate in groups or participating in intensive therapy and group sessions patient's Latuda will be continued for diagnosis of bipolar depression we will increase dose patient will take Latuda with meals we will continue to monitor. (2) Polysubstance abuse: 10/23/20-will monitor for benzodiazepine withdrawal given tremulousness and anxiety with agitation will start Valium twice daily 5 mg Recent relapse on methamphetamine despite 10 days in the rehabilitation facility 10 years clean from heroin last use 10 years ago. Plan will be to continue to monitor consider outpatient addictions program and on discharge She has been 10 years clean off heroin : Inventory Assets Strengths: To verbalize her needs Needs: Addictions and recovery treatment in addition to intensive outpatient care Risk Factors Assessment Do You Have Access To A Gun?: No Interval History Chief Complaint "I feel like crap I feel the garbage []". Review of Systems Sleep Information Total Hours of Sleep: 5.5 Meal Information Percent Meal Consumed - Breakfast: 0 Percent Meal Consumed - Lunch: 75 Percent Meal Consumed - Dinner: 75 Nutrition Comment: pt. is nauseous; meal dated. labeled and refrigerated. elba alexsander provided and small sips encouraged. Subjective Subjective Patient was seen & assessed and interval progress reviewed with treatment team nursing and social work. Patient with ongoing agitation and focus about going to [place] tremulousness was noted a AWAS score was 4 received Ativan became very shaky this morning on rounds and received 10 mg of Valium and did go to sleep and did better when she woke continues to complain of nausea was recently received Zofran patient appears tremulous at times still agitated denies suicidal ideation homicidal ideation affect is still very depressed Physical Exam Psychiatric Orientation: alert, oriented x 3 and oriented to person Apperance: + disheveled Eye Contact: + fair eye contact Motor Behavior: + psychomotor agitation Speech: + pressured speech and + loud speech Affect: + depressed affect and + angry affect Mood: + depressed mood and + irritable mood Thought Process: linear/logical thought process and + perseveration Especially on travel to [place] Thought Content: + preoccupation and + guilt Suicidal Thoughts: denies suicidal thoughts, denies suicidal plan and denies suicidal intent Homicidal Thoughts: denies homicidal thoughts, denies homicidal plan and denies homicidal intent Hallucinations: + gustatory hallucinations; no auditory hallucinations, no visual hallucinations and no tactile hallucinations Cognition: remote memory grossly intact Estimated Intelligence: consistent with education level Insight: + impaired insight Judgement: + impaired judgement Vital Signs (Past 24 Hours) Last Vital Signs Temp 36.8 C 10/23/20 18:00 Pulse 92 H 10/23/20 18:00 Resp 18 10/23/20 18:00 BP 121/81 10/23/20 18:00 Pulse Ox 98 10/23/20 18:00 Results & Data ([facility]) Current Inpatient Medications Current Inpatient Medications: Current Inpatient Medications Acetaminophen (Acetaminophen 325 Mg Tab) 650 mg PO Q4H PRN PRN Reason: Headache or Minor Fever Stop: 11/21/20 13:01 Al Hydrox/Mg Hydrox/Simethicone (Aluminum/Magnesium Susp 30 Ml Udc) 30 ml PO Q4H PRN PRN Reason: GI Upset Stop: 11/21/20 13:01 Bismuth Subsalicylate (Bismuth Subsalicylate Liqd 236 Ml) 15 ml PO PRN PRN PRN Reason: Loose Stool Stop: 11/21/20 13:01 Diazepam (Diazepam 5 Mg Tablet) 5 mg PO BID AMI Stop: 11/22/20 20:59 Hydroxyzine HCl (Hydroxyzine Hcl 25 Mg Tab) 50 mg PO HSZ PRN PRN Reason: Insomnia Stop: 11/21/20 13:01 Hydroxyzine HCl (Hydroxyzine Hcl 25 Mg Tab) 25 mg PO Q4H PRN PRN Reason: Anxiety Stop: 11/21/20 13:01 Last Admin: 10/23/20 16:29 Dose: 25 mg Documented by: Lorazepam (Lorazepam 1 Mg Tab) 1 - 3 mg PO UD PRN; Protocol PRN Reason: EtoH Withdrawal AWSS 6-10+ Stop: 11/22/20 09:53 Lurasidone HCl (Lurasidone Hcl 40 Mg Tab) 40 mg PO DAILY [facility] Stop: 11/22/20 08:59 Last Admin: 10/23/20 13:07 Dose: 40 mg Documented by: Magnesium Hydroxide (Magnesium Hydroxide Susp 30 Ml Udc) 30 ml PO DAILY PRN PRN Reason: Constipation Stop: 11/21/20 13:01 Miscellaneous (Remove Nicoderm Patch) 1 ea N/A DAILY@0859 [facility] Stop: 11/22/20 08:58 Last Admin: 10/23/20 09:34 Dose: 1 ea Documented by: Nicotine (Nicotine 21 Mg/24 Hr Tdsy) 21 mg TD QAM [facility] Stop: 11/22/20 08:59 Last Admin: 10/23/20 12:14 Dose: 21 mg Documented by: Nicotine Polacrilex (Nicotine Polacrilex 2 Mg Gum) 2 piece MT PRN PRN PRN Reason: cravings Stop: 11/21/20 15:13 Last Admin: 10/23/20 13:07 Dose: 2 piece Documented by: Sodium Chloride (Sodium Chloride 0.65% Na Soln 45 Ml ([place])) 1 - 2 sprays NA PRN PRN PRN Reason: Nasal Dryness/Congestion Stop: 11/21/20 13:01 Zolpidem Tartrate (Zolpidem Tartrate 10 Mg Tab) 10 mg PO HS [facility] Stop: 11/21/20 21:59 Last Admin: 10/22/20 21:11 Dose: 10 mg Documented by: Mental Health & Subst Abuse Tx Psychiatrist Name of Psychiatrist: Kurt Psychiatrist's Therapist Name of Therapist: [facility] Post Discharge Appointments Primary Care Physician Name Of Family Doctor: States "I'm not sure I have one" Contact Information Discharge Discharge Address: [address] [place] [address]
[2020-10-23] MEDS: diazePAM 5 MG TABLET PO SCH (22:10)
[2020-10-23] MEDS: ZOLPIDEM TARTRATE 10 MG TAB PO SCH (22:10)
[2020-10-23] MEDS: ACETAMINOPHEN 325 MG TAB PO PRN (22:16)
[2020-10-24] MEDS: ACETAMINOPHEN 325 MG TAB PO PRN (06:27)
[2020-10-24] MEDS: hydrOXYzine HCl 25 MG TAB PO PRN (06:28)
[2020-10-24] MEDS: diazePAM 5 MG TABLET PO SCH ×2 (08:46→21:16)
[2020-10-24] MEDS: NICOTINE 21 MG/24 HR TDSY TD SCH (08:46)
[2020-10-24] MEDS: LURASIDONE HCL 40 MG TAB PO SCH (08:46)
[2020-10-24] MEDS: LORazepam 1 MG TAB PO PRN (09:52)
[2020-10-24] MEDS: NICOTINE POLACRILEX 2 MG GUM MT PRN (10:46)
--- NOTE | 2020-10-24 19:26 | Psychiatric Progress Note ---
Date of Service October 24, 2020 Impression / Recommendations Impression 39-year-old with a history of substance abuse bipolar disorder unspecified admitted status post an overdose with ingestion of pills. Patient admitted in the context of this overdose as well as multiple psychosocial stressors which are ongoing and recurrent. Patient is status post an admission in September 2020 which was very brief. Patient while denying current suicidal ideation appears to present a similar affect that she presented in the last admission where she suddenly feels that she is doing much better despite a significant overdose, currently denying suicidal ideation however ongoing concerns regarding the actual suicide attempt and readmission to psychiatric current or psychiatric reasons within a month her current plan is to go to [place] on clear unless discussed with family how realistic this is. Patient continues have "flight into health" patient with very limited coping skills limited insight and not an effective plan for coping in the community given her recent stressors and a very short rehospitalization after discharge 3 weeks ago. (1) Unspecified episodic mood disorder: Admitted to [facility]. [facility] behavioral health unit will be on every 15 minute checks will be monitored for suicidal ideation will participate in groups or participating in intensive therapy and group sessions patient's Latuda will be continued for diagnosis of bipolar depression we will increase dose patient will take Latuda with meals we will continue to monitor. 10/24/2020 patient continues Latuda denies any side effects mood has been less agitated especially since she has been going through withdrawal symptoms requiring as needed Ativan. Continue Latuda 40 mg with plan to increase to 80 mg patient feels Latuda has worked well in the past mood is still very depressed Latuda was not increased given the patient is having withdrawal symptoms but patient could benefit from an increase dose to 80 mg and continue to stabilize her mood symptoms at. At this time patient denies any thoughts of suicide or homicide (2) Polysubstance abuse: 10/24/20-patient continues to have withdrawal symptoms is unclear what patient is withdrawing from at this time may be benzodiazepine withdrawal we will continue Valium 5 mg twice daily and continue Ativan as needed as needed. 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 Plan will be to continue to monitor consider outpatient addictions program and on discharge She has been 10 years clean off heroin : Inventory Assets Strengths: To verbalize her needs Needs: Addictions and recovery treatment in addition to intensive outpatient care Risk Factors Assessment Do You Have Access To A Gun?: No Interval History Chief Complaint "[I feel less shaky]". Review of Systems Sleep Information Total Hours of Sleep: 7.25 Meal Information Percent Meal Consumed - Breakfast: 50 Percent Meal Consumed - Lunch: 25 Percent Meal Consumed - Dinner: 0 Nutrition Comment: a few bites Subjective Subjective Patient was seen & assessed and interval progress reviewed with nursing and social work. Patient reports to feeling less shaky vital signs are also reviewed patient denies suicidal ideation but continues to perseverate on going to [place] I need to get to [place]" patient denies auditory hallucination or visual hallucinations spent most of the day in her room sleeping reports that this is because I am not feeling good" no evidence of response to internal stimuli but patient apparently is withdrawing. Physical Exam Psychiatric Orientation: alert, oriented x 3 and oriented to person Apperance: + disheveled Eye Contact: + fair eye contact Motor Behavior: + psychomotor agitation Speech: + loud speech; no pressured speech Affect: + depressed affect and + anxious affect; no angry affect Mood: + depressed mood and + irritable mood Thought Process: linear/logical thought process and + perseveration Thought Content: + preoccupation and + guilt Suicidal Thoughts: denies suicidal thoughts, denies suicidal plan and denies suicidal intent Homicidal Thoughts: denies homicidal thoughts, denies homicidal plan and denies homicidal intent Hallucinations: no auditory hallucinations, no visual hallucinations, no tactile hallucinations and no gustatory hallucinations Cognition: remote memory grossly intact Estimated Intelligence: consistent with education level Insight: + impaired insight Judgement: + fair judgement; not impaired judgement Patient is taking medications and following nursing direction. Vital Signs (Past 24 Hours) Last Vital Signs Temp 36.6 C 10/24/20 18:03 Pulse 103 H 10/24/20 18:03 Resp 18 10/24/20 18:03 BP 127/78 10/24/20 18:03 Pulse Ox 98 10/24/20 18:03 Results & Data ([facility]) Current Inpatient Medications Current Inpatient Medications: Current Inpatient Medications Acetaminophen (Acetaminophen 325 Mg Tab) 650 mg PO Q4H PRN PRN Reason: Headache or Minor Fever Stop: 11/21/20 13:01 Last Admin: 10/24/20 06:27 Dose: 650 mg Documented by: Al Hydrox/Mg Hydrox/Simethicone (Aluminum/Magnesium Susp 30 Ml Udc) 30 ml PO Q4H PRN PRN Reason: GI Upset Stop: 11/21/20 13:01 Bismuth Subsalicylate (Bismuth Subsalicylate Liqd 236 Ml) 15 ml PO PRN PRN PRN Reason: Loose Stool Stop: 11/21/20 13:01 Diazepam (Diazepam 5 Mg Tablet) 5 mg PO BID [facility] Stop: 11/22/20 20:59 Last Admin: 10/24/20 08:46 Dose: 5 mg Documented by: Hydroxyzine HCl (Hydroxyzine Hcl 25 Mg Tab) 50 mg PO HSZ PRN PRN Reason: Insomnia Stop: 11/21/20 13:01 Hydroxyzine HCl (Hydroxyzine Hcl 25 Mg Tab) 25 mg PO Q4H PRN PRN Reason: Anxiety Stop: 11/21/20 13:01 Last Admin: 10/24/20 06:28 Dose: 25 mg Documented by: Lorazepam (Lorazepam 1 Mg Tab) 1 - 3 mg PO UD PRN; Protocol PRN Reason: EtoH Withdrawal AWSS 6-10+ Stop: 11/22/20 09:53 Last Admin: 10/24/20 09:52 Dose: 1 mg Documented by: Lurasidone HCl (Lurasidone Hcl 40 Mg Tab) 40 mg PO DAILY [facility] Stop: 11/22/20 08:59 Last Admin: 10/24/20 08:46 Dose: 40 mg Documented by: Magnesium Hydroxide (Magnesium Hydroxide Susp 30 Ml Udc) 30 ml PO DAILY PRN PRN Reason: Constipation Stop: 11/21/20 13:01 Miscellaneous (Remove Nicoderm Patch) 1 ea N/A DAILY@0859 [facility] Stop: 11/22/20 08:58 Last Admin: 10/24/20 10:46 Dose: 1 ea Documented by: Nicotine (Nicotine 21 Mg/24 Hr Tdsy) 21 mg TD QAM [facility] Stop: 11/22/20 08:59 Last Admin: 10/24/20 08:46 Dose: 21 mg Documented by: Nicotine Polacrilex (Nicotine Polacrilex 2 Mg Gum) 2 piece MT PRN PRN PRN Reason: cravings Stop: 11/21/20 15:13 Last Admin: 10/24/20 10:46 Dose: 2 piece Documented by: Sodium Chloride (Sodium Chloride 0.65% Na Soln 45 Ml ([place])) 1 - 2 sprays NA PRN PRN PRN Reason: Nasal Dryness/Congestion Stop: 11/21/20 13:01 Zolpidem Tartrate (Zolpidem Tartrate 10 Mg Tab) 10 mg PO HS AMI Stop: 11/21/20 21:59 Last Admin: 10/23/20 22:10 Dose: 10 mg Documented by: Mental Health & Subst Abuse Tx Psychiatrist Name of Psychiatrist: Kurt Psychiatrist's Therapist Name of Therapist: [facility] Post Discharge Appointments Primary Care Physician Name Of Family Doctor: States "I'm not sure I have one" Contact Information Discharge Discharge Address: [address] [place] [address]
[2020-10-24] MEDS: ZOLPIDEM TARTRATE 10 MG TAB PO SCH (21:16)
[2020-10-24] MEDS: ALUMINUM/MAGNESIUM SUSP 30 ML UDC PO PRN (21:17)
[2020-10-25 08:49] LABS: Glucose Fasting 113 mg/dl (70-99)
[2020-10-25 08:57] LABS: Chol HDL Ratio 14; Cholesterol 256 mg/dl (0-200); HDL Cholesterol 19 mg/dl; LDL Cholesterol Calculated 187 mg/dl; Triglycerides 249 mg/dl (0-150); VLDL Cholesterol 50 mg/dl
[2020-10-25] MEDS: diazePAM 5 MG TABLET PO SCH ×2 (09:24→21:50)
[2020-10-25] MEDS: LORazepam 1 MG TAB PO PRN ×2 (09:25→16:45)
[2020-10-25] MEDS: NICOTINE 21 MG/24 HR TDSY TD SCH (11:36)
[2020-10-25] MEDS: PANTOprazole 40 MG TAB PO SCH ×2 (12:23→21:51)
--- NOTE | 2020-10-25 12:34 | Psychiatric Progress Note ---
Date of Service October 25, 2020 Impression / Recommendations Impression 39-year-old with a history of substance abuse bipolar disorder unspecified admitted status post an overdose with ingestion of pills. Patient admitted in the context of this overdose as well as multiple psychosocial stressors which are ongoing and recurrent. Patient is status post an admission in September 2020 which was very brief. Patient while denying current suicidal ideation appears to present a similar affect that she presented in the last admission where she suddenly feels that she is doing much better despite a significant overdose, currently denying suicidal ideation however ongoing concerns regarding the actual suicide attempt and readmission to psychiatric current or psychiatric reasons within a month her current plan is to go to [place] on clear unless discussed with family how realistic this is. Patient continues have "flight into health" patient with very limited coping skills limited insight and not an effective plan for coping in the community given her recent stressors and a very short rehospitalization after discharge 3 weeks ago. 10/25/20--reviewed impression as per Dr. Pena. Very irritable and low functioning today, resists idea of withdrawal. (1) Unspecified episodic mood disorder: 10/25/20--Dr. Pena's notes in italics reviewed. continue current medications. does not appear to have akathisia. ?serotonin type syndrome following OD that is resolving vs withdrawal as below. Admitted to [facility]. [facility] behavioral health unit will be on every 15 minute checks will be monitored for suicidal ideation will participate in groups or participating in intensive therapy and group sessions patient's Latuda will be continued for diagnosis of bipolar depression we will increase dose patient will take Latuda with meals we will continue to monitor. 10/24/2020 patient continues Latuda denies any side effects mood has been less agitated especially since she has been going through withdrawal symptoms requiring as needed Ativan. Continue Latuda 40 mg with plan to increase to 80 mg patient feels Latuda has worked well in the past mood is still very depressed Latuda was not increased given the patient is having withdrawal symptoms but patient could benefit from an increase dose to 80 mg and continue to stabilize her mood symptoms at. At this time patient denies any thoughts of suicide or homicide (2) Polysubstance abuse: 10/25/20--Dr. Pena's notes in italics reviewed. Reviewed that Valium must be tapered before discharge and patient wants it tapered as quickly as possible, she is aware of risks and continues to deny drug use/withdrawal. 10/24/20-patient continues to have withdrawal symptoms is unclear what patient is withdrawing from at this time may be benzodiazepine withdrawal we will continue Valium 5 mg twice daily and continue Ativan as needed as needed. 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 Plan will be to continue to monitor consider outpatient addictions program and on discharge She has been 10 years clean off heroin : Inventory Assets Strengths: To verbalize her needs Needs: Addictions and recovery treatment in addition to intensive outpatient care Risk Factors Assessment Do You Have Access To A Gun?: No Interval History Chief Complaint "I want out of here, they should have pumped my stomach more". Review of Systems Sleep Information Total Hours of Sleep: 6.5 Sleep Comments: pt given deboien per rn. pt on q-15 minute checks Meal Information Percent Meal Consumed - Breakfast: 0 Percent Meal Consumed - Lunch: 25 Percent Meal Consumed - Dinner: 0 Nutrition Comment: a few bites Subjective Subjective Patient was seen & assessed and interval progress reviewed with treatment team. Had to leave family meeting in upset yesterday but requesting discharge to her mother's even though states that she can't function to get out of bed here and brush her own teeth. She appears restless, some residual sweating. She is adamant that she is not having withdrawal but experiencing N and lower back pain. Agreed to labs given her history of pancreatitis. Physical Exam Psychiatric Orientation: alert, oriented x 3 and oriented to person Apperance: + disheveled Eye Contact: + poor eye contact Motor Behavior: + psychomotor agitation Speech: + loud speech Affect: + depressed affect Mood: + irritable mood Thought Process: + perseveration Thought Content: + preoccupation Suicidal Thoughts: denies suicidal thoughts, denies suicidal plan and denies suicidal intent Homicidal Thoughts: denies homicidal thoughts, denies homicidal plan and denies homicidal intent Hallucinations: no auditory hallucinations, no visual hallucinations, no tactile hallucinations and no gustatory hallucinations Cognition: remote memory grossly intact Estimated Intelligence: consistent with education level Insight: + impaired insight Judgement: + impaired judgement Vital Signs (Past 24 Hours) Last Vital Signs Temp 37.3 C 10/25/20 11:31 Pulse 96 H 10/25/20 11:31 Resp 16 10/25/20 06:47 BP 124/77 10/25/20 11:31 Pulse Ox 97 10/24/20 22:54 Results & Data ([facility]) Laboratory Results Laboratory Results - last 24 hr 10/25/20 10/25/20 07:54 12:13 Sodium Pending Potassium Pending Chloride Pending Carbon Dioxide Pending Anion Gap Pending BUN Pending Creatinine Pending Est Cr Clr Drug Dosing Pending Est GFR ( Amer) Pending Est GFR (Non-Af Amer) Pending BUN/Creatinine Ratio Pending Glucose Pending Fasting Glucose 113 H Calcium Pending Phosphorus Pending Magnesium Pending Total Bilirubin Pending AST Pending ALT Pending Alkaline Phosphatase Pending Total Protein Pending Albumin Pending Globulin Pending Albumin/Globulin Ratio Pending Triglycerides 249 H Cholesterol 256 H LDL Cholesterol, Calc 187 VLDL Cholesterol, Calc 50 HDL Cholesterol 19 Cholesterol/HDL Ratio 14 Amylase Pending Lipase Pending Current Inpatient Medications Current Inpatient Medications: Current Inpatient Medications Acetaminophen (Acetaminophen 325 Mg Tab) 650 mg PO Q4H PRN PRN Reason: Headache or Minor Fever Stop: 11/21/20 13:01 Last Admin: 10/24/20 06:27 Dose: 650 mg Documented by: Al Hydrox/Mg Hydrox/Simethicone (Aluminum/Magnesium Susp 30 Ml Udc) 30 ml PO Q4H PRN PRN Reason: GI Upset Stop: 11/21/20 13:01 Last Admin: 10/24/20 21:17 Dose: 30 ml Documented by: Bismuth Subsalicylate (Bismuth Subsalicylate Liqd 236 Ml) 15 ml PO PRN PRN PRN Reason: Loose Stool Stop: 11/21/20 13:01 Diazepam (Diazepam 5 Mg Tablet) 2.5 mg PO BID AMI Stop: 11/24/20 20:59 Hydroxyzine HCl (Hydroxyzine Hcl 25 Mg Tab) 50 mg PO HSZ PRN PRN Reason: Insomnia Stop: 11/21/20 13:01 Hydroxyzine HCl (Hydroxyzine Hcl 25 Mg Tab) 25 mg PO Q4H PRN PRN Reason: Anxiety Stop: 11/21/20 13:01 Last Admin: 10/24/20 06:28 Dose: 25 mg Documented by: Lorazepam (Lorazepam 1 Mg Tab) 1 - 3 mg PO UD PRN; Protocol PRN Reason: EtoH Withdrawal AWSS 6-10+ Stop: 11/22/20 09:53 Last Admin: 10/25/20 09:25 Dose: 1 mg Documented by: Lurasidone HCl (Lurasidone Hcl 40 Mg Tab) 40 mg PO DAILY AMI Stop: 11/22/20 08:59 Last Admin: 10/24/20 08:46 Dose: 40 mg Documented by: Magnesium Hydroxide (Magnesium Hydroxide Susp 30 Ml Udc) 30 ml PO DAILY PRN PRN Reason: Constipation Stop: 11/21/20 13:01 Miscellaneous (Remove Nicoderm Patch) 1 ea N/A DAILY@858 [facility] Stop: 11/22/20 08:58 Last Admin: 10/25/20 11:36 Dose: Not Given Documented by: Nicotine (Nicotine 21 Mg/24 Hr Tdsy) 21 mg TD QAM [facility] Stop: 11/22/20 08:59 Last Admin: 10/25/20 11:36 Dose: Not Given Documented by: Nicotine Polacrilex (Nicotine Polacrilex 2 Mg Gum) 2 piece MT PRN PRN PRN Reason: cravings Stop: 11/21/20 15:13 Last Admin: 10/24/20 10:46 Dose: 2 piece Documented by: Pantoprazole Sodium (Pantoprazole 40 Mg Tab) 40 mg PO BID AMI Stop: 11/24/20 10:29 Last Admin: 10/25/20 12:23 Dose: 40 mg Documented by: Sodium Chloride (Sodium Chloride 0.65% Na Soln 45 Ml ([place])) 1 - 2 sprays NA PRN PRN PRN Reason: Nasal Dryness/Congestion Stop: 11/21/20 13:01 Zolpidem Tartrate (Zolpidem Tartrate 10 Mg Tab) 10 mg PO HS AMI Stop: 11/21/20 21:59 Last Admin: 10/24/20 21:16 Dose: 10 mg Documented by: Mental Health & Subst Abuse Tx Psychiatrist Name of Psychiatrist: Kurt Psychiatrist's Therapist Name of Therapist: [facility] Post Discharge Appointments Primary Care Physician Name Of Family Doctor: States "I'm not sure I have one" Contact Information Discharge Discharge Address: [address] [place] [address]
[2020-10-25 12:50] LABS: Albumin Level 4.5 gm/dl (3.4-5.0); BUN Creatinine Ratio 21.4 (10-20); Calcium 10.3 mg/dl (8.5-10.1); Creatinine Clr Calc Pharmacy 114.3 ml/min; Est GFR (African American) 99.3 ml/min; Est GFR (Non-African American) 85.7 ml/min; Magnesium 2.5 mg/dl (1.8-2.4); Potassium 4.2 mmol/L (3.5-5.1)
[2020-10-25 12:54] LABS: Bilirubin,Total 0.4 mg/dl (0.2-1); Globulin 4.5 gm/dl (2.5-4.0); Phosphorus 2.8 mg/dl (2.5-4.9)
[2020-10-25] MEDS: ACETAMINOPHEN 325 MG TAB PO PRN (16:44)
[2020-10-25] MEDS: ALUMINUM/MAGNESIUM SUSP 30 ML UDC PO PRN (16:45)
[2020-10-25] MEDS: LURASIDONE HCL 40 MG TAB PO SCH (17:00)
[2020-10-25] MEDS: ZOLPIDEM TARTRATE 10 MG TAB PO SCH (21:50)
[2020-10-26] MEDS: ALUMINUM/MAGNESIUM SUSP 30 ML UDC PO PRN (03:43)
[2020-10-26] MEDS: hydrOXYzine HCl 25 MG TAB PO PRN (03:45)
[2020-10-26] MEDS: PANTOprazole 40 MG TAB PO SCH ×2 (08:54→21:35)
[2020-10-26] MEDS: NICOTINE 21 MG/24 HR TDSY TD SCH (08:55)
[2020-10-26] MEDS: diazePAM 5 MG TABLET PO SCH (09:22)
[2020-10-26] MEDS: LORazepam 1 MG TAB PO PRN ×2 (10:14→16:50)
--- NOTE | 2020-10-26 10:58 | Psychiatric Progress Note ---
Date of Service October 26, 2020 Impression / Recommendations Impression 39-year-old with a history of substance abuse bipolar disorder unspecified admitted status post an overdose with ingestion of pills. Patient admitted in the context of this overdose as well as multiple psychosocial stressors which are ongoing and recurrent. Patient is status post an admission in September 2020 which was very brief. Patient while denying current suicidal ideation appears to present a similar affect that she presented in the last admission where she suddenly feels that she is doing much better despite a significant overdose, currently denying suicidal ideation however ongoing concerns regarding the actual suicide attempt and readmission to psychiatric current or psychiatric reasons within a month her current plan is to go to [place] on clear unless discussed with family how realistic this is. Patient continues have "flight into health" patient with very limited coping skills limited insight and not an effective plan for coping in the community given her recent stressors and a very short rehospitalization after discharge 3 weeks ago. 10/25/20--reviewed impression as per Dr. Pena. Very irritable and low functioning today, resists idea of withdrawal. 10/26/20--nausea is improving, had a BM, remains tachy and sweating, will resume low dose Neurontin for comfort. (1) Unspecified episodic mood disorder: 10/26/20--restart low dose Neurontin given medical indication beyond anxiety with plan for mother to secure. 10/25/20--Dr. Pean's notes in italics reviewed. continue current medications. does not appear to have akathisia. ?serotonin type syndrome following OD that is resolving vs withdrawal as below. Admitted to [facility] unit will be on every 15 minute checks will be monitored for suicidal ideation will participate in groups or participating in intensive therapy and group sessions patient's Latuda will be continued for diagnosis of bipolar depression we will increase dose patient will take Latuda with meals we will continue to monitor. 10/24/2020 patient continues Latuda denies any side effects mood has been less agitated especially since she has been going through withdrawal symptoms requiring as needed Ativan. Continue Latuda 40 mg with plan to increase to 80 mg patient feels Latuda has worked well in the past mood is still very depressed Latuda was not increased given the patient is having withdrawal symptoms but patient could benefit from an increase dose to 80 mg and continue to stabilize her mood symptoms at. At this time patient denies any thoughts of suicide or homicide (2) Polysubstance abuse: 10/26/20-- continues to minimize meth use. 10/25/20--Dr. Pena's notes in italics reviewed. Reviewed that Valium must be tapered before discharge and patient wants it tapered as quickly as possible, she is aware of risks and continues to deny drug use/withdrawal. 10/24/20-patient continues to have withdrawal symptoms is unclear what patient is withdrawing from at this time may be benzodiazepine withdrawal we will continue Valium 5 mg twice daily and continue Ativan as needed as needed. 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 Plan will be to continue to monitor consider outpatient addictions program and on discharge She has been 10 years clean off heroin : (3) Hyperhidrosis: chronic per history, reports longstanding response to Neurontin. Inventory Assets Strengths: To verbalize her needs Needs: Addictions and recovery treatment in addition to intensive outpatient care Risk Factors Assessment Do You Have Access To A Gun?: No Interval History Chief Complaint "I still want to get out of here, not sure if I can swallow pills ever again as I was near , I still feel like there is something in my stomach". Review of Systems Sleep Information Total Hours of Sleep: 6 Meal Information Percent Meal Consumed - Breakfast: 75 Percent Meal Consumed - Lunch: 0 Percent Meal Consumed - Dinner: 0 Nutrition Comment: nauseous Subjective Subjective Patient was seen & assessed and interval progress reviewed with nursing and social work. Remained irritable and in room, c/o sweats most of night. Now states that Neurontin has been for detention hot flashes and prescribed in collaboration with Dr. Hicks and her PCP for both that and anxiety. She is resistant to resuming Latuda despite the fact "only medicine for bipolar that helped me with suicidal ideation". Reviewed that she will not be restarted on Xanax here and not recommended given her substance use hx. Neurontin can also be misused. She is agreeable to mother overseeing medication and plans to return to live with mother tomorrow. She continues to report relationship as reason for trigger and OD attempt so soon after rehab. Physical Exam Psychiatric Orientation: alert and oriented x 3 Eye Contact: + fair eye contact Motor Behavior: no abnormal motor movements Speech: normal rate/rhythm/volume of speech Affect: + anxious affect Mood: + anxious mood Thought Process: linear/logical thought process Thought Content: reality based without delusions Suicidal Thoughts: denies suicidal thoughts Homicidal Thoughts: denies homicidal thoughts Hallucinations: no auditory hallucinations and no visual hallucinations Cognition: remote memory grossly intact Estimated Intelligence: consistent with education level Insight: + impaired insight Judgement: + impaired judgement Vital Signs (Past 24 Hours) Last Vital Signs Temp 36.8 C 10/26/20 10:08 Pulse 114 H 10/26/20 10:08 Resp 18 10/26/20 10:08 BP 97/63 L 10/26/20 10:08 Pulse Ox 100 10/26/20 06:00 Results & Data ([facility]) Laboratory Results Laboratory Results - last 24 hr 10/25/20 12:13 Sodium 138 Potassium 4.2 Chloride 106 Carbon Dioxide 25 Anion Gap 7.0 BUN 18 Creatinine 0.85 Est Cr Clr Drug Dosing 114.3 Est GFR ( Amer) 99.3 Est GFR (Non-Af Amer) 85.7 BUN/Creatinine Ratio 21.4 H Glucose 106 H Calcium 10.3 H Phosphorus 2.8 Magnesium 2.5 H Total Bilirubin 0.4 AST 13 L ALT 24 Alkaline Phosphatase 93 Total Protein 9.0 H Albumin 4.5 Globulin 4.5 H Albumin/Globulin Ratio 1.0 Amylase 34 Lipase 129 Current Inpatient Medications Current Inpatient Medications: Current Inpatient Medications Acetaminophen (Acetaminophen 325 Mg Tab) 650 mg PO Q4H PRN PRN Reason: Headache or Minor Fever Stop: 11/21/20 13:01 Last Admin: 10/25/20 16:44 Dose: 650 mg Documented by: Al Hydrox/Mg Hydrox/Simethicone (Aluminum/Magnesium Susp 30 Ml Udc) 30 ml PO Q4H PRN PRN Reason: GI Upset Stop: 11/21/20 13:01 Last Admin: 10/26/20 03:43 Dose: 30 ml Documented by: Bismuth Subsalicylate (Bismuth Subsalicylate Liqd 236 Ml) 15 ml PO PRN PRN PRN Reason: Loose Stool Stop: 11/21/20 13:01 Gabapentin (Gabapentin 300 Mg Cap) 300 mg PO BID [facility] Stop: 11/25/20 10:59 Hydroxyzine HCl (Hydroxyzine Hcl 25 Mg Tab) 50 mg PO HSZ PRN PRN Reason: Insomnia Stop: 11/21/20 13:01 Hydroxyzine HCl (Hydroxyzine Hcl 25 Mg Tab) 25 mg PO Q4H PRN PRN Reason: Anxiety Stop: 11/21/20 13:01 Last Admin: 10/26/20 03:45 Dose: 25 mg Documented by: Lorazepam (Lorazepam 1 Mg Tab) 1 - 3 mg PO UD PRN; Protocol PRN Reason: EtoH Withdrawal AWSS 6-10+ Stop: 11/22/20 09:53 Last Admin: 10/26/20 10:14 Dose: 1 mg Documented by: Lurasidone HCl (Lurasidone Hcl 40 Mg Tab) 20 mg PO DAILY [facility] Stop: 11/25/20 10:59 Magnesium Hydroxide (Magnesium Hydroxide Susp 30 Ml Udc) 30 ml PO DAILY PRN PRN Reason: Constipation Stop: 11/21/20 13:01 Miscellaneous (Remove Nicoderm Patch) 1 ea N/A DAILY@[id number] [facility] Stop: 11/22/20 08:58 Last Admin: 10/26/20 08:55 Dose: Not Given Documented by: Nicotine (Nicotine 21 Mg/24 Hr Tdsy) 21 mg TD QAM [facility] Stop: 11/22/20 08:59 Last Admin: 10/26/20 08:55 Dose: Not Given Documented by: Nicotine Polacrilex (Nicotine Polacrilex 2 Mg Gum) 2 piece MT PRN PRN PRN Reason: cravings Stop: 11/21/20 15:13 Last Admin: 10/24/20 10:46 Dose: 2 piece Documented by: Pantoprazole Sodium (Pantoprazole 40 Mg Tab) 40 mg PO BID AMI Stop: 11/24/20 10:29 Last Admin: 10/26/20 08:54 Dose: 40 mg Documented by: Sodium Chloride (Sodium Chloride 0.65% Na Soln 45 Ml ([place])) 1 - 2 sprays NA PRN PRN PRN Reason: Nasal Dryness/Congestion Stop: 11/21/20 13:01 Zolpidem Tartrate (Zolpidem Tartrate 10 Mg Tab) 10 mg PO HS AMI Stop: 11/21/20 21:59 Last Admin: 10/25/20 21:50 Dose: 10 mg Documented by: Mental Health & Subst Abuse Tx Psychiatrist Name of Psychiatrist: [facility] - Dr. Hicks Psychiatrist's Psychiatric Appointment Comment: [address] [place] [address], [facility] [address], [address], [place] [address] Therapist Name of Therapist: . Post Discharge Appointments Primary Care Physician Name Of Family Doctor: Conrad Rowan Primary Care Date of Appointment with PCP: 10/30/20 Time of Appointment with PCP: 8:05 am Provider Appointment Comment: [address] [place] [address], [place] Contact Information Discharge Discharge [address]: [address] [place] [address]
[2020-10-26] MEDS: GABAPENTIN 300 MG CAP PO SCH ×2 (12:30→21:35)
[2020-10-26] MEDS: LURASIDONE HCL 40 MG TAB PO SCH (12:31)
[2020-10-26] MEDS: ZOLPIDEM TARTRATE 10 MG TAB PO SCH (21:37)
[2020-10-27] MEDS: GABAPENTIN 300 MG CAP PO SCH (07:56)
[2020-10-27] MEDS: PANTOprazole 40 MG TAB PO SCH (07:57)
[2020-10-27] MEDS: LURASIDONE HCL 40 MG TAB PO SCH (07:57)
[2020-10-27] MEDS: NICOTINE 21 MG/24 HR TDSY TD SCH (07:59)
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
== END 2020-10-27 09:35 | disposition home or self-care (01) | DRG 885 ==
LOC: SUATTDRO 14:34 → 3S 14:34